=== PATIENT | male | born 1945 | race Caucasian/White ===

== ENCOUNTER 2018-06-05 09:55 | Inpatient (IN) | payer BC, OTHER ==
[2018-06-05 10:37] VITALS: BMI 24.3
[2018-06-05] MEDS ORDERED: SODIUM CHLORIDE 1,000 ML IV STA ×2 (10:45→13:08)
[2018-06-05 11:42] LABS: BASO % 0.4 % (0-2.0); EOS % 0.9 % (0-4.5); HEMATOCRIT 38.5 % (35.4-49); HEMOGLOBIN 12.8 GM/dL (11.7-16.9); MCH 26.8 pg (25.7-33.7); MCHC 33.2 g/dl (32.0-35.9); MEAN CELL VOLUME 80.7 fl (80-96); MEAN PLT VOLUME 7.7 fl (7.5-11.1); MONO % 7.4 % (3.8-10.2); NEUT % 85.3 % (42.8-82.8); PLATELET COUNT 316 K/MM3 (134-434); RBC 4.76 M/mm3 (4.00-5.60); RDW 15.5 % (11.9-15.9); WHITE BLOOD COUNT 15.7 K/mm3 (4.0-10.0)
[2018-06-05 12:06] LABS: VENOUS PH 7.4 (7.32-7.42); VENOUS PO2 27.7 mmHg (28-48)
[2018-06-05 12:16] LABS: ALBUMIN 2.9 g/dl (3.4-5.0); ALK PHOS 136 U/L (45-117); ANION GAP 13 MMOL/L (8-16); BILIRUBIN,TOTAL 0.8 mg/dL (0.2-1.0); BLOOD UREA NITROGEN 37 mg/dL (7-18); CALCIUM 9.1 mg/dL (8.5-10.1); CHLORIDE 96 mmol/L (98-107); CO2 23 mmol/L (21-32); CREATININE 0.9 mg/dL (0.7-1.3); GLUCOSE,RANDOM 253 mg/dL (74-106); SGOT/AST 36 U/L (15-37); SODIUM 132 mmol/L (136-145)
[2018-06-05 12:18] LABS: INR 1.22 (0.83-1.09); PROTHROMBIN TIME (PATIENT) 13.8 SEC (9.7-13.0)
[2018-06-05 12:21] LABS: SGPT/ALT 44 U/L (12-78)
--- NOTE | 2018-06-05 13:14 | PDOC ---
History of Present Illness - General Chief Complaint: Loss of Appetite Stated Complaint: Blood Pressure Problem/WEAKNESS Time Seen by Provider: 06/05/18 10:45 History Source: Patient, Other (daughter) Exam Limitations: No Limitations - History of Present Illness Initial Comments: 06/05/18 12:35 73 y/o male brought in by family for evaluation of decreased appetite, cough, weight loss and patient's disregard to his hygiene for the past 3 months. Patient denies discomfort, chest pain, shortness of breath, headache or dizziness but states just does not have the urge to eat. Patient states 2-3 months of coughing which is intermittently dry and wet in the morning without lower extremity edema, orthopnea, palpitations, fever or chills. Timing/Duration: constant, getting worse Severity: moderate Associated Symptoms: reports: cough, loss of appetite, weakness Past History - Travel Traveled outside of the country in the last 30 days: No - Past Medical History Allergies/Adverse Reactions: Allergies Allergy/AdvReac Type Severity Reaction Status Date / Time No Known Allergies Allergy Verified 06/05/18 10:19 COPD: No HTN: Yes - Suicide/Smoking/Psychosocial Hx Smoking History: Former smoker Have you smoked in the past 12 months: No If you are a former smoker, when did you quit?: 2012 Information on smoking cessation initiated: No Patient Lives Alone: No Lives with/in: spouse/SO Review of Systems - Review of Systems Able to Perform ROS?: Yes Constitutional: Yes: Loss of Appetite, Weakness HEENTM: No: Symptoms Reported Respiratory: Yes: Cough. No: Shortness of Breath Cardiac (ROS): No: Symptoms Reported ABD/GI: No: Symptoms Reported : No: Symptoms Reported Musculoskeletal: Yes: Muscle Weakness Integumentary: No: Symptoms Reported Neurological: Yes: Weakness. No: Headache, Dizziness Psychiatric: Yes: Change in Appetite. No: Depression, Sleep Pattern Change Endocrine: No: Symptoms Reported Hematologic/Lymphatic: No: Symptoms Reported *Physical Exam - Vital Signs Last Vital Signs Temp Pulse Resp BP Pulse Ox 98.5 F 110 H 20 142/85 93 L 06/05/18 10:15 06/05/18 10:15 06/05/18 10:15 06/05/18 10:15 06/05/18 10:15 - Physical Exam General Appearance: Yes: Disheveled, Thin. No: Apparent Distress HEENT: positive: EOMI, OLEG, TMs Normal, Pharynx Normal (decayed teeth with calcified plaque to lower teeth) Neck: positive: Supple Respiratory/Chest: positive: Lungs Clear, Normal Breath Sounds. negative: Respiratory Distress, Accessory Muscle Use Cardiovascular: positive: Regular Rhythm, Tachycardia. negative: Murmur Gastrointestinal/Abdominal: positive: Soft. negative: Tenderness Integumentary: positive: Dry, Warm, Pale Neurologic: positive: Normal Mood/Affect (good eye contact, smiling), Motor Strength 5/5 (moving all extremeties activley) Heart Score/ECG Review - History History: Slightly suspicious - Electrocardiogram EKG: Normal - Age Age: >/= 65 - Risk Factors Based on the list above the patient has:: No risk factors known - Troponin Troponin: </= normal limit - Score Heart Score - Total: 2 - ECG Intrepretation Rhythm: Regular Rhythm (Sinus tachycardia at 105. QTC 438 ms. Intervals are regular. Left axis deviation.) ED Treatment Course - LABORATORY CBC & Chemistry Diagram: 06/06/18 06:25 06/06/18 06:25 - ADDITIONAL ORDERS Additional order review: Laboratory Results 06/05/18 06/05/18 06/05/18 11:45 11:45 11:45 PT with INR 13.80 H INR 1.22 H VBG pH 7.40 POC VBG pCO2 32.0 L POC VBG pO2 27.7 L Mixed VBG HCO3 22.0 Sodium 132 L Potassium 4.0 Chloride 96 L Carbon Dioxide 23 Anion Gap 13 BUN 37 H Creatinine 0.9 Creat Clearance w eGFR > 60 Random Glucose 253 H Lactic Acid Calcium 9.1 Magnesium Total Bilirubin 0.8 AST 36 ALT 44 Alkaline Phosphatase 136 H Troponin I Total Protein 7.0 Albumin 2.9 L 06/05/18 06/05/18 06/05/18 11:28 11:25 11:25 PT with INR INR VBG pH POC VBG pCO2 POC VBG pO2 Mixed VBG HCO3 Sodium Potassium Chloride Carbon Dioxide Anion Gap BUN Creatinine Creat Clearance w eGFR Random Glucose Lactic Acid 2.4 H* Calcium Magnesium 2.3 Total Bilirubin AST ALT Alkaline Phosphatase Troponin I < 0.02 Total Protein Albumin 06/05/18 11:25 RBC 4.76 MCV 80.7 MCHC 33.2 RDW 15.5 MPV 7.7 Neutrophils % 85.3 H Lymphocytes % 6.0 L Monocytes % 7.4 Eosinophils % 0.9 Basophils % 0.4 - RADIOLOGY Radiology Studies Ordered: Category Date Time Status CHEST CT WITH CONTRAST [CT] Stat CT Scan 06/05/18 12:56 Ordered CHEST X-RAY PORTABLE* [RAD] Stat Radiology 06/05/18 10:45 Completed - Medications Given in the ED: ED Medications Discontinued Medications Generic Name Dose Route Start Last Admin Trade Name Freq PRN Reason Stop Dose Admin Sodium Chloride 1,000 mls @ 1,000 mls/hr 06/05/18 10:45 06/05/18 12:49 Normal Saline - IV 06/05/18 11:44 1,000 mls/hr ASDIR STA Administration Medical Decision Making - Medical Decision Making 06/05/18 11:47 (Inviolate primary care physician for evaluation of poor appetite, weight loss, and cough for the past 3 months. Patient upon arrival appears disheveled satting at 93% and slightly tachycardic. Patient consented to sepsis versus dehydration versus pneumonia. Septic workup was initiated 06/05/18 13:47 Laboratory Tests 06/05/18 06/05/18 06/05/18 11:25 11:25 11:25 WBC 15.7 H Hgb 12.8 Hct 38.5 Absolute Neuts (auto) 13.4 H Neutrophils % 85.3 H PT with INR INR VBG pH POC VBG pCO2 POC VBG pO2 Mixed VBG HCO3 Sodium Potassium Chloride Carbon Dioxide Anion Gap BUN Creatinine Creat Clearance w eGFR Random Glucose Calcium Magnesium 2.3 Total Bilirubin AST ALT Alkaline Phosphatase Troponin I < 0.02 Total Protein Albumin 06/05/18 06/05/18 06/05/18 11:45 11:45 11:45 WBC Hgb Hct Absolute Neuts (auto) Neutrophils % PT with INR 13.80 H INR 1.22 H VBG pH 7.40 POC VBG pCO2 32.0 L POC VBG pO2 27.7 L Mixed VBG HCO3 22.0 Sodium 132 L Potassium 4.0 Chloride 96 L Carbon Dioxide 23 Anion Gap 13 BUN 37 H Creatinine 0.9 Creat Clearance w eGFR > 60 Random Glucose 253 H Calcium 9.1 Magnesium Total Bilirubin 0.8 AST 36 ALT 44 Alkaline Phosphatase 136 H Troponin I Total Protein 7.0 Albumin 2.9 L 06/05/18 13:49 Chest x-ray shows a masslike opacity noted in the right mid lung zone, right hilar region with increasing lung markings in the right upper lobe. No evidence of pneumothorax or large pleural effusion. The cardiac silhouette is not enlarged. Normal aeration of the left lung. Case discussed with patient's primary care physician agrees and will admit patient to [facility]. Patient would' ve for CT of the chest for further evaluation along with second liter of normal saline and Zosyn secondary to elevated white count and lactic acid. Awaiting urine. 06/05/18 15:[address] shows groundglass opacity within the lateral segment of the right middle lobe measuring 1.9 cm best seen on image 70. A mass identified projecting within the right upper lobe measuring 5.9 x 7.1 x 6.9 cm. Low- density within the middle of this lesion suggest necrosis. 4.1 cm is noted within the right lobe of the liver likely representing metastasis disease to additional lesions are noted posteriorly within the right lobe measuring 1.5- 1.9 cm. No aggressive bone lesions seen. *DC/Admit/Observation/Transfer Diagnosis at time of Disposition: Sepsis, Opacity of lung on imaging study, Hyponatremia, Poor appetite - Discharge Dispostion Decision to Admit order: Yes - Referrals - Patient Instructions - Post Discharge Activity
[2018-06-05] MEDS ORDERED: PIPERACILLIN/TAZOB 3.375 GM 3.375 GM in DEXTROSE 5%-WATER - 50 ML IVPB SCH (13:45)
--- NOTE | 2018-06-05 15:08 | HP ---
Admitting History and Physical - Admission Chief Complaint: Acute exacerbation of generalized muscle weakness, anorexia and non-productive cough. 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 Cardiovascular: Yes: HTN Pulmonary: Yes: Other (non-productive cough, lung mass of right upper lobe) Gastrointestinal: Yes: Other (status post surgery for duodenal ulcer) Hepatobiliary: Yes: Other (distant metastases) Infectious Disease: Yes: Other (dental caries) Psych: Yes: Depression Musculoskeletal: Yes: Other (generalized muscle weakness) Dermatology: Yes: Other (Decubitus ulcer of right buttock) - Past Surgical History Past Surgical History: Yes: Hernia Repair (right inguinal hernia repair) - Smoking History Smoking history: Former smoker Have you smoked in the past 12 months: No If you are a former smoker, when did you quit?: 2013 - Alcohol/Substance Use Hx Alcohol Use: No (used to drink beer) History of Substance Use: reports: None - Social History Usual Living Arrangement: Yes: With Spouse 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 Loss, Weakness ( generalized muscle weakness) Eyes: reports: No Symptoms HENT: reports: Other (dental caries) Neck: reports: No Symptoms Cardiovascular: reports: No Symptoms Respiratory: reports: Cough Gastrointestinal: reports: Other (poor appetite) Genitourinary: reports: No Symptoms Breasts: reports: No Symptoms Reported Musculoskeletal: reports: Muscle Weakness Integumentary: reports: Other (stage I decubitus ulcer of left ischial tuberosity) Endocrine: reports: No Symptoms Hematology/Lymphatic: reports: No Symptoms Psychiatric: reports: Anxiety, Depression Physical Examination Vital Signs: Vital Signs Temperature 98.7 F 06/05/18 13:07 Pulse Rate 99 H 06/05/18 13:07 Respiratory Rate 16 06/05/18 13:07 Blood Pressure 131/74 06/05/18 13:07 O2 Sat by Pulse Oximetry (%) 93 L 06/05/18 13:07 Constitutional: Yes: Well Nourished, Mild Distress Eyes: Yes: Conjunctiva Clear, EOM Intact HENT: Yes: Atraumatic, Normocephalic Neck: Yes: Supple, Trachea Midline Cardiovascular: Yes: Regular Rate and Rhythm Respiratory: Yes: Regular, CTA Bilaterally, Cough Gastrointestinal: Yes: Normal Bowel Sounds, Soft ...Rectal Exam: Yes: Deferred Renal/: Yes: WNL Breast(s): Yes: WNL Musculoskeletal: Yes: Muscle Weakness Edema: No Peripheral Pulses WNL: Yes Integumentary: Yes: Pressure Ulcer (stage I of the left hip) Neurological: Yes: Alert, Oriented ...Motor Strength: LUE (muscle weakness), LLE (muscle weakness), RUE (muscle weakness), RLE (muscle weakness) Psychiatric: Yes: Alert, Oriented Labs: CBC, BMP 06/05/18 11:25 06/05/18 11:45 Imaging - Results Chest X-ray: Report Reviewed Cat Scan: Report Reviewed EKG: Report Reviewed Problem List - Problems (1) Hyponatremia Assessment/Plan: IV fluids Code(s): E87.1 - HYPO-OSMOLALITY AND HYPONATREMIA (2) Opacity of lung on imaging study Assessment/Plan: Lung mass in the right middle lobe with distant metastases. Conservative treatment. Code(s): R91.8 - OTHER NONSPECIFIC ABNORMAL FINDING OF LUNG FIELD (3) Poor appetite Assessment/Plan: Adequate hydration and nutrition. Code(s): R63.0 - ANOREXIA (4) Sepsis Assessment/Plan: IV antibiotics Code(s): A41.9 - SEPSIS, UNSPECIFIED ORGANISM Assessment/Plan Reason for admission and continued hospital stay: Acute sepsis, acute hyponatremia, acute leukocytosis, right upper lobe lung mass with distant metastases, depression, IV fluids, IV antibiotics, Consultations to ID and Psychiatry, discussed clinical condition of the patient with and daughter Vera.
[2018-06-05] MEDS: SODIUM CHLORIDE 1,000 ML IV SCH (17:09)
--- NOTE | 2018-06-05 17:34 | EKG ---
Test Reason : Blood Pressure : / mmHG Vent. Rate : 105 BPM Atrial Rate : 105 BPM P-R Int : 136 ms QRS Dur : 070 ms QT Int : 332 ms P-R-T Axes : 065 -33 063 degrees QTc Int : 438 ms SINUS TACHYCARDIA POSSIBLE LEFT ATRIAL ENLARGEMENT LEFT AXIS DEVIATION LOW VOLTAGE QRS ABNORMAL ECG NO PREVIOUS ECGS AVAILABLE Confirmed by KAYY PALMER MD ([id number]) on 06/05/2018 5:34:08 PM Referred By: Confirmed By:KAYY PALMER MD
--- NOTE | 2018-06-05 18:00 | PN ---
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
[2018-06-05] MEDS ORDERED: CEFTRIAXONE 1 GM in DEXTROSE 5%-WATER - 50 ML IVPB SCH (18:15)
--- NOTE | 2018-06-05 18:59 | CONS ---
DATE OF CONSULTATION: DATE OF DICTATION: 06/05/2018 INFECTIOUS DISEASE CONSULTATION REQUESTING PHYSICIAN: Mau Mclain M.D. HISTORY OF PRESENT ILLNESS: This is a 73-year-old man admitted from home, where he has been doing poorly for the last several months. He has not been eating. He has had a chronic cough. He has had weight loss. He has become so weak that over the last 2 weeks he is unable to walk and he stays in bed. He has been wearing Depends at home, as he has not even been able to get up and go to the bathroom. He has no chest pain. He has no abdominal pain. He has no fevers. He has no chills. He does complain of dysuria. This has been going on for a long time and the family is worried he is depressed. PAST MEDICAL HISTORY: Unremarkable. He does not go to the doctor. He does not take any medicine. He has no known drug allergies. 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 He lives with his . He is a former cigarette smoker and alcohol drinker. He stopped 5 years ago when he retired. he has been depressed, the daughter reports since he retired. FAMILY HISTORY: Noncontributory. PAST MEDICAL HISTORY: Notable for he has had surgery in the past for bleeding ulcer, and he has had an inguinal hernia repair in the past. REVIEW OF SYSTEMS: Notable for weight loss, loss of appetite, and he has an intermittent cough. PHYSICAL EXAMINATION: VITAL SIGNS: He is afebrile. Temperature is 98, pulse 98, blood pressure 134/ 71, respiratory rate 18. HEENT: Normocephalic. Eyes are anicteric. He has poor dentition. NECK: Supple. LUNGS: Diminished breath sounds at the right base. He has right axillary adenopathy. HEART: Regular rate and rhythm. ABDOMEN: Soft, nontender. EXTREMITIES: Without edema. He has a right ischial stage 1 ulcer. His arms are asymmetrically swollen, left arm is swollen compared to his right, which appears unremarkable. LABORATORY: Notable for white count 15.7, hemoglobin 12.8, platelets of 316. INR is 1.2. His BUN and creatinine are 37 and 0.9. Lactic acid is 2.4. Blood cultures have been sent. He was given 2 L of fluid in the emergency room and I am asked to see him for possible infection. He had a chest x-ray done in the emergency room that was notable for a right lung mass. He had a CAT scan of his chest done as well in the emergency room that was notable for a mass projecting within the right upper lobe that is 5.9 x 7.1 x 6.9 cm. As well he has got large right hilar adenopathy. There is some extrinsic compression of right pulmonary artery as well as there is intrinsic compression of the SVC. There are additional lung nodules in the left and right middle lobe, and there are 3 masses in the liver. He also has a large moderate right effusion. IMPRESSION: In summary, this is a 73-year-old man that I was asked to see for infection. Not convinced he has an infection except perhaps a urinary tract infection. He does have evidence of a lung tumor with concerns of impending SVC syndrome. Case was discussed with daughter and with the primary medical doctor. The family is aware he has a tumor. I have advised them that we ask oncology to further evaluate, which they are agreeable with. I spoke with Dr. Westbrook regarding his management . They will evaluate the patient. Would suggest that after cultures are sent we start Rocephin for possible urinary tract infection. Further recommendations to follow. TOSIN HURTADO M.D. [id number] MTDD
--- NOTE | 2018-06-05 19:34 | CONSULT ---
Consult Consult Specialty:: Hematology-oncology Reason for Consultation:: Lung mass and SVC syndrome - History of Present Illness Chief Complaint: genralized weakness History of Present Illness: &! y/o male was brought in by family for generalized weakness. Patient states that he is feeling weaker from 3- 4 months but from last 3 weak his weakness has increased and and is unable to walk. Before he was able to go to bathroom but now as per family he is peeing in his bed. He also reports that he has noticed decrease in his appetite and has lost weight. Be also reports difficulty is swallowing and has started drinking water to swallow food. He also satates that he has dry cough from many months but denies sob. Also reports blurry vision from few months. He also states that he had smoked for about 40-45 years and stopped 5-6 years ago. Also reports some dysuria. Family reports that he was retried 5-6 years ago and since he just sits in home and stays in home all the time. Family also states that he doesn't take shower for weeks. Patient denies headache, double vision, numbness or weakness in part of body, swelling of face and arms. Denies chest pain, palpitations, shortness of breath. Denies nausea, vomiting, diarrhoea, abdominal distension, pain in abdomen Denies change in frequency, dribbling in end of micturation, change in stream, states he can feel that he needs to urinate but cant reach upto bathroom. Denies back pain. Denies feeling cold or warm. 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 Cardio/Vascular: Yes: HTN Pulmonary: Yes: Other (non-productive cough, lung mass of right upper lobe) Gastrointestinal: Yes: Other (status post surgery for duodenal ulcer) Hepatobiliary: Yes: Other (distant metastases) Infectious Disease: Yes: Other (dental caries) Psych: Yes: Depression Musculoskeletal: Yes: Other (generalized muscle weakness) Dermatology: Yes: Other (Decubitus ulcer of right buttock) - Past Surgical History Past Surgical History: Yes: Hernia Repair (right inguinal hernia repair) Additional Surgical History: Laprotomy - Alcohol/Substance Use Hx Alcohol Use: No (used to drink beer) History of Substance Use: reports: None - Smoking History Smoking history: Former smoker Have you smoked in the past 12 months: No If you are a former smoker, when did you quit?: 2013 - Social History Usual Living Arrangement: With Spouse Occupation: [employer] of : Other ([employer]) History of Recent Travel: No Home Medications - Allergies Allergies/Adverse Reactions: Allergies Allergy/AdvReac Type Severity Reaction Status Date / Time No Known Allergies Allergy Verified 06/05/18 10:19 Family Disease History - Family Disease History Family Disease History: Diabetes: Grandparent (details not available ), Father ( details not available ), Mother, Brother (spine cancer ), Daughter (x3 healthy ) Review of Systems Findings/Remarks: Discussed above - Review of Systems Constitutional: reports: Lethargy, Loss of Appetite, Unintentional Wgt. Loss Eyes: reports: Blurred Vision HENT: reports: Difficult Swallowing Neck: reports: No Symptoms Respiratory: reports: Cough Gastrointestinal: reports: Constipation Genitourinary: reports: Dysuria Musculoskeletal: reports: Muscle Weakness Neurological: reports: Weakness Endocrine: reports: Unexplained Weight Loss Hematology/Lymphatic: reports: Excessive Bleeding Psychiatric: reports: Depression Physical Exam Vital Signs: Vital Signs Temperature 98 F 06/05/18 15:47 Pulse Rate 98 H 06/05/18 15:47 Respiratory Rate 18 06/05/18 15:47 Blood Pressure 134/71 06/05/18 15:47 O2 Sat by Pulse Oximetry (%) 93 L 06/05/18 13:07 Constitutional: Yes: Cachectic Eyes: Yes: Conjunctiva Clear HENT: Yes: Other (poor oral hygine) Neck: Yes: Supple. No: Lymphadenopathy, Thyromegaly Cardiovascular: Yes: Regular Rate and Rhythm, S1, S2. No: Murmur, Rub Respiratory: Yes: Other (b/l air entry present, expiratory wheez on right side, crackels present on right side. no axillary lymphnode.) Gastrointestinal: Yes: Soft, Other (mid line scar, no ingunal lymphnodes, no scrotal swelling). No: Palpable Mass, Splenomegaly, Tenderness, Tenderness, Epigastrium, Tenderness, Rebound Renal/: No: CVA Tenderness - Right Musculoskeletal: No: Back Pain Extremities: Yes: Cold, Other (muscle loss) Edema: No Neurological: Yes: Alert, Oriented, Cran Nerves II-XII Intact Psychiatric: Yes: Alert, Oriented Labs: CBC, BMP 06/05/18 11:25 06/05/18 11:45 Imaging - Results Cat Scan: Report Reviewed Problem List - Problems (1) Lung mass Code(s): R91.8 - OTHER NONSPECIFIC ABNORMAL FINDING OF LUNG FIELD (2) Superior vena cava compression syndrome Code(s): I87.1 - COMPRESSION OF VEIN (3) Liver metastasis Code(s): C78.7 - SECONDARY MALIG NEOPLASM OF LIVER AND INTRAHEPATIC BILE DUCT (4) Hilar mass Code(s): R91.8 - OTHER NONSPECIFIC ABNORMAL FINDING OF LUNG FIELD Assessment/Plan 73 y/o male with history of smoking for about 40 -45 years came to hospital for generalized weakness, loss of weight and loss of appetite. Patient under went CT chest which shows mass in right upper lobe of lung, hilar mass compressing SVC, right side effusion and multiple lesions in liver. concern for early SVC syndrome. with smoking history lungs CA would be likely his diagnosis. Statistically oatcell carcinoma is commonest lung ca causing SVC. Generalized weakness raises concern for possible Eaton Lambert syndrome. Tissue diagnosis is required for therapy. Can consider thoracentesis for cytology and or IR directed lung biopsy. Once diagnosis is established treatment can be instituted. For suspecting SVC syndrome we will start him on dexamethasone 4mg bid, keep his head elevated by 45 degree and will give him low dose of diuretic. Once diagnosis is made patient requires a bone scan, mri brain with contrast. Pulmonology and neurology consult. Plan discussed with family and patient. Family was present at bed side ( and 2 daughter ) Visit type - Emergency Visit Emergency Visit: Yes ED Registration Date: 06/05/18 Care time: The patient presented to the Emergency Department on the above date and was hospitalized for further evaluation of their emergent condition. - New Patient This patient is new to me today: Yes Date on this admission: 06/12/18 - Critical Care Critical Care patient: No
[2018-06-05] MEDS ORDERED: DEXAMETHASONE 4 MG TABLET (FP) PO ONE (20:00)
[2018-06-05] MEDS ORDERED: ALBUTEROL SO4 2.5/IPRATROPIUM 0.5 INH SOL 3 ML VIAL.NEB. NEB PRN (20:05)
--- NOTE | 2018-06-05 20:27 | PN ---
Teaching Attending Note Name of Resident: Lucas Ahmadi ATTENDING PHYSICIAN STATEMENT I saw and evaluated the patient. I reviewed the resident's note and discussed the case with the resident. I agree with the resident's findings and plan as documented. SUBJECTIVE: Patient seen and examined 73 year old smoker with right pleural effusion, right lung mass, multiple pulmonary nodules, mediastinal lymphadenopathy and 3 masses in liver . Strongly suspicious for lung ca >> lymphoma. Adenopathy causing early signs of SVC. Hyponatremia--?? SIADH Generalized muscle weakness --- ? Eaton -Lambert syndrome. Plan would be to obtain tissue for diagnosis, Thoracentesis for cytology and /or I.R. directed lung biopsy. Treatment can be instituted after diagnosis. Suggest I.R consult, neurology consult , and pulmonary consult. A OBJECTIVE: ASSESSMENT AND PLAN:
[2018-06-05] MEDS: ENOXAPARIN NA (PORCINE) 80 MG/0.8 ML DISP.SYRIN SQ SCH (21:33)
[2018-06-05 23:48] LABS: URINE APPEARANCE SLCLOUDY; URINE BILIRUBIN NEGATIVE (<2.0 mg/dL); URINE COLOR AMBER; URINE GLUCOSE (UA) NEGATIVE (NEGATIVE); URINE KETONE NEGATIVE (NEGATIVE); URINE NITRITE NEGATIVE (NEGATIVE); URINE PROTEIN NEGATIVE (NEGATIVE); URINE UROBILINOGEN 4.0 E.U/dl mg/dL (0.2-1.0)
[2018-06-06 00:03] LABS: URINE LEUK ESTERASE 1+ (NEGATIVE)
[2018-06-06 00:04] LABS: URINE BACTERIA MODERATE /hpf (NONE SEEN); URINE HYALINE CAST 4 /lpf; URINE MUCUS RARE
[2018-06-06] MEDS ORDERED: DEXTROSE 5%-WATER - 50 ML IVPB ONE ×3 (01:00→18:17)
[2018-06-06] MEDS ORDERED: cefTRIAXone SODIUM 1 GM VIAL ONE ×3 (01:00→18:17)
[2018-06-06] MEDS: CEFTRIAXONE 1 GM in DEXTROSE 5%-WATER - 50 ML IVPB SCH ×2 (01:20→17:32)
[2018-06-06] MEDS: SODIUM CHLORIDE 1,000 ML IV SCH ×2 (05:46→21:24)
[2018-06-06] MEDS: DEXAMETHASONE 4 MG TABLET (FP) PO SCH ×3 (05:46→21:24)
[2018-06-06 07:25] LABS: BASO % 0.2 % (0-2.0); EOS % 0.2 % (0-4.5); HEMATOCRIT 34.2 % (35.4-49); HEMOGLOBIN 11.4 GM/dL (11.7-16.9); LYMPH % 6.1 % (8-40); MCH 26.6 pg (25.7-33.7); MCHC 33.4 g/dl (32.0-35.9); MEAN CELL VOLUME 79.6 fl (80-96); MEAN PLT VOLUME 7.6 fl (7.5-11.1); MONO % 3.5 % (3.8-10.2); PLATELET COUNT 275 K/MM3 (134-434); RBC 4.29 M/mm3 (4.00-5.60); RDW 15.5 % (11.9-15.9); WHITE BLOOD COUNT 11.4 K/mm3 (4.0-10.0)
--- NOTE | 2018-06-06 07:33 | PN ---
Progress Note, Physician Chief Complaint: Generalized muscle weakness, poor appetite, non-productive cough. 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 - Current Medication List Current Medications: Active Medications Albuterol/Ipratropium (Duoneb -) 1 amp NEB Q6H PRN PRN Reason: SHORTNESS OF BREATH Dexamethasone (Decadron -) 4 mg PO BID ON LICENSE OF [facility] Last Admin: 06/06/18 05:46 Dose: 4 mg Enoxaparin Sodium (Lovenox -) 70 mg SQ BID ON LICENSE OF [facility] Last Admin: 06/05/18 21:33 Dose: 70 mg Hydrochlorothiazide (Hctz -) 12.5 mg PO DAILY ON LICENSE OF [facility] Sodium Chloride (Normal Saline -) 1,000 mls @ 75 mls/hr IV ASDIR ON LICENSE OF [facility] Last Admin: 06/06/18 05:46 Dose: 75 mls/hr Ceftriaxone Sodium 1 gm/ (Dextrose) 50 mls @ 100 mls/hr IVPB DAILY ON LICENSE OF [facility]; Protocol Last Admin: 06/06/18 01:20 Dose: 100 mls/hr - Objective Vital Signs: Vital Signs Temperature 97.5 F L 06/06/18 05:43 Pulse Rate 80 06/06/18 05:43 Respiratory Rate 18 06/06/18 05:43 Blood Pressure 122/68 06/06/18 05:43 O2 Sat by Pulse Oximetry (%) 95 06/05/18 21:00 Constitutional: Yes: Well Nourished, Calm Eyes: Yes: Conjunctiva Clear, EOM Intact HENT: Yes: Atraumatic, Normocephalic Neck: Yes: Supple, Trachea Midline Cardiovascular: Yes: Regular Rate and Rhythm Respiratory: Yes: Regular, CTA Bilaterally, Cough, Rhonchi Gastrointestinal: Yes: Normal Bowel Sounds, Soft ...Rectal Exam: Yes: Deferred Genitourinary: Yes: Bladder Distention (urinary retention, r/o BPH) Breast(s): Yes: WNL Musculoskeletal: Yes: Muscle Weakness (generalized) Extremities: Yes: Cool Edema: No Peripheral Pulses WNL: Yes Integumentary: Yes: Pressure Ulcer (stage I of the left hip) Neurological: Yes: Alert, Oriented ...Motor Strength: LUE (muscle weakness), LLE (muscle weakness), RUE (muscle weakness), RLE (muscle weakness) Psychiatric: Yes: Alert, Oriented Labs: INR, PTT INR 1.22 (0.83-1.09) H 06/05/18 11:45 - ....Imaging Ultrasound: Report Reviewed (DVT) Problem List - Problems (1) Hyponatremia Assessment/Plan: IV fluids Code(s): E87.1 - HYPO-OSMOLALITY AND HYPONATREMIA (2) Opacity of lung on imaging study Assessment/Plan: Oncology consultation Code(s): R91.8 - OTHER NONSPECIFIC ABNORMAL FINDING OF LUNG FIELD (3) Poor appetite Assessment/Plan: Adequate hydration and nutrition. Code(s): R63.0 - ANOREXIA (4) Sepsis Assessment/Plan: IV Ceftriaxone Code(s): A41.9 - SEPSIS, UNSPECIFIED ORGANISM Assessment/Plan Reason for admission and hospital stay: right lung mass with mediastinal lymphandenopathy, pleural effusion, pulomnary nodules and liver masses, urinary tract infection, DVT, poor dentition, ?urinary retention, acute hyponatremia, transrectal ultrasound of the prostate, Consultation to Pulmonary and Neurology , IV Ceftriaxone, Decadron, Lovenox. Discussed clinical condition of the patient with daughter Vera.
[2018-06-06 07:56] LABS: ALBUMIN 2.3 g/dl (3.4-5.0); ANION GAP 11 MMOL/L (8-16); BLOOD UREA NITROGEN 25 mg/dL (7-18); CALCIUM 7.9 mg/dL (8.5-10.1); CHLORIDE 101 mmol/L (98-107); CO2 22 mmol/L (21-32); CREATININE 0.7 mg/dL (0.7-1.3); GLUCOSE,RANDOM 209 mg/dL (74-106); POTASSIUM 4.2 mmol/L (3.5-5.1); SGOT/AST 15 U/L (15-37); SGPT/ALT 30 U/L (12-78); SODIUM 134 mmol/L (136-145)
[2018-06-06 07:58] LABS: ALK PHOS 108 U/L (45-117); BILIRUBIN,TOTAL 0.4 mg/dL (0.2-1.0); TOT PROT 5.8 g/dl (6.4-8.2)
--- NOTE | 2018-06-06 09:07 | CONSULT ---
Consult - text type - Consultation Consultation Note: Neurology - History of Present Illness 73 y/o male was brought in by family for deconditioning, failure to thrive, generalized weakness. Reportedly with progressive decline from 3- 4 months but over the past month has not been ambulating at home. Son and daughter bedside provided collateral history. Has been reportedly not walking to bathroom, limited PO intake, difficulty with maintain hygiene and overall deterioration. He was awake, alert, and cooperative with me. Of note, has a extensive history of smoking and is being managed for mass in right upper lobe of lung, hilar mass compressing SVC, right side effusion ? SVC syndrome. Neurologically, no focal deficits and is improving in energy and activity. Being fed breakfast at bedside. 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 Cardio/Vascular: Yes: HTN Pulmonary: Yes: Other (non-productive cough, lung mass of right upper lobe) Gastrointestinal: Yes: Other (status post surgery for duodenal ulcer) Hepatobiliary: Yes: Other (distant metastases) Infectious Disease: Yes: Other (dental caries) Psych: Yes: Depression Musculoskeletal: Yes: Other (generalized muscle weakness) Dermatology: Yes: Other (Decubitus ulcer of right buttock) - Past Surgical History Past Surgical History: Yes: Hernia Repair (right inguinal hernia repair) Additional Surgical History: Laprotomy - Alcohol/Substance Use Hx Alcohol Use: No (used to drink beer) History of Substance Use: reports: None - Smoking History Smoking history: Former smoker Have you smoked in the past 12 months: No If you are a former smoker, when did you quit?: 2012 - Social History Usual Living Arrangement: With Spouse Occupation: [employer] of : Other ([place]) History of Recent Travel: No Home Medications - Allergies Allergies/Adverse Reactions: Allergies Allergy/AdvReac Type Severity Reaction Status Date / Time No Known Allergies Allergy Verified 06/05/18 10:19 Family Disease History - Family Disease History Family Disease History: Diabetes: Grandparent (details not available ), Father ( details not available ), Mother, Brother (spine cancer ), Daughter (x3 healthy ) Review of Systems - Review of Systems Constitutional: reports: Lethargy, Loss of Appetite, Unintentional Wgt. Loss Eyes: reports: Blurred Vision HENT: reports: Difficult Swallowing Neck: reports: No Symptoms Respiratory: reports: Cough Gastrointestinal: reports: Constipation Genitourinary: reports: Dysuria Musculoskeletal: reports: Muscle Weakness Neurological: reports: Weakness Endocrine: reports: Unexplained Weight Loss Hematology/Lymphatic: reports: Excessive Bleeding Psychiatric: reports: Depression Physical Exam Vital Signs Period Temp Pulse Resp BP Sys/Garcia Pulse Ox Last 24 Hr 97.5 F-98.7 F 80-110 16-20 122-142/68-85 93-95 Constitutional: Yes: Cachectic Eyes: Yes: Conjunctiva Clear HENT: Yes: Other (poor oral hygine) Neck: Yes: Supple. No: Lymphadenopathy, Thyromegaly Cardiovascular: Yes: Regular Rate and Rhythm, S1, S2. No: Murmur, Rub Respiratory: Yes: Other (b/l air entry present, expiratory wheez on right side, crackels present on right side. no axillary lymphnode.) Gastrointestinal: Yes: Soft, Other (mid line scar, no ingunal lymphnodes, no scrotal swelling). No: Palpable Mass, Splenomegaly, Tenderness, Tenderness, Epigastrium, Tenderness, Rebound Renal/: No: CVA Tenderness - Right Musculoskeletal: No: Back Pain Extremities: Yes: Cold, Other (muscle loss) Edema: No Neurological: Yes: Alert, Oriented, Cran Nerves II-XII Intact, moving all ext equally, sensory intact, gait deferred Psychiatric: Yes: Alert, Oriented CBCD WBC 11.4 K/mm3 (4.0-10.0) H 06/06/18 06:25 RBC 4.29 M/mm3 (4.00-5.60) 06/06/18 06:25 Hgb 11.4 GM/dL (11.7-16.9) L 06/06/18 06:25 Hct 34.2 % (35.4-49) L 06/06/18 06:25 MCV 79.6 fl (80-96) L 06/06/18 06:25 MCHC 33.4 g/dl (32.0-35.9) 06/06/18 06:25 RDW 15.5 % (11.9-15.9) 06/06/18 06:25 Plt Count 275 K/MM3 (134-434) 06/06/18 06:25 MPV 7.6 fl (7.5-11.1) 06/06/18 06:25 CMP Sodium 134 mmol/L (136-145) L 06/06/18 06:25 Potassium 4.2 mmol/L (3.5-5.1) 06/06/18 06:25 Chloride 101 mmol/L (98-107) 06/06/18 06:25 Carbon Dioxide 22 mmol/L (21-32) 06/06/18 06:25 Anion Gap 11 MMOL/L (8-16) 06/06/18 06:25 BUN 25 mg/dL (7-18) H 06/06/18 06:25 Creatinine 0.7 mg/dL (0.7-1.3) 06/06/18 06:25 Creat Clearance w eGFR > 60 (>60) 06/06/18 06:25 Random Glucose 209 mg/dL (74-106) H 06/06/18 06:25 Calcium 7.9 mg/dL (8.5-10.1) L 06/06/18 06:25 Total Bilirubin 0.4 mg/dL (0.2-1.0) 06/06/18 06:25 AST 15 U/L (15-37) D 06/06/18 06:25 ALT 30 U/L (12-78) D 06/06/18 06:25 Alkaline Phosphatase 108 U/L (45-117) D 06/06/18 06:25 Total Protein 5.8 g/dl (6.4-8.2) L 06/06/18 06:25 Albumin 2.3 g/dl (3.4-5.0) L 06/06/18 06:25 CARDIAC ENZYMES Troponin I < 0.02 ng/ml (0.00-0.05) 06/05/18 11:25 Imaging - Results Cat Scan: Report Reviewed Assessment/Plan 73 y/o male was brought in by family for deconditioning, failure to thrive, generalized weakness. Reportedly with progressive decline from 3- 4 months but over the past month has not been ambulating at home. Son and daughter bedside provided collateral history. Has been reportedly not walking to bathroom, limited PO intake, difficulty with maintain hygiene and overall deterioration. He was awake, alert, and cooperative with me. Of note, has a extensive history of smoking and is being managed for mass in right upper lobe of lung, hilar mass compressing SVC, right side effusion ? SVC syndrome. Neurologically, no focal deficits and is improving in energy and activity. Being fed breakfast at bedside. 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 If desired, Ab can be sent out. Recommend continued workup/plan with thoracentesis or IR guided biopsy. Started on decadron, no objection to this. Imaging as desired by Onc. Physical therapy as tolerated. May benefit from psych eval for possible depression.
[2018-06-06] MEDS: HYDROCHLOROTHIAZIDE 12.5 MG CAPSULE (FP) PO SCH (10:52)
[2018-06-06] MEDS: ENOXAPARIN NA (PORCINE) 80 MG/0.8 ML DISP.SYRIN SQ SCH ×2 (10:53→21:24)
--- NOTE | 2018-06-06 11:05 | CON.PULM ---
Consult Consult Specialty:: PULM/CCM Referred by:: COURT Reason for Consultation:: Abnormal CT - History of Present Illness Chief Complaint: weakness History of Present Illness: 73 M, with listed past medical history. Admitted via the ER due to generalized weakness that has progressed over the past 3- 4 months. He has worsening to the point that he is unable to ambulate. History of decreased appetite and significant weight loss. Reports difficulty is swallowing. No travel history or sick contacts. No fever or chills. No hemoptysis. He has at least a 45 year pack history of smoking, having quit about [address]: Large right sided mass with likely metastatic disease to the mediastinum/ liver/satellite mets. 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 Cardio/Vascular: Yes: HTN Pulmonary: Yes: Other (non-productive cough, lung mass of right upper lobe) Gastrointestinal: Yes: Other (status post surgery for duodenal ulcer) Hepatobiliary: Yes: Other (distant metastases) Infectious Disease: Yes: Other (dental caries) Psych: Yes: Depression Musculoskeletal: Yes: Other (generalized muscle weakness) Dermatology: Yes: Other (Decubitus ulcer of right buttock) - Past Surgical History Past Surgical History: Yes: Hernia Repair (right inguinal hernia repair) Additional Surgical History: Laprotomy - Alcohol/Substance Use Hx Alcohol Use: No (used to drink beer) History of Substance Use: reports: None - Smoking History Smoking history: Former smoker Have you smoked in the past 12 months: No If you are a former smoker, when did you quit?: 2012 - Social History Usual Living Arrangement: With Spouse 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 Loss. denies: Chills, Fever, Night Sweats Eyes: reports: No Symptoms HENT: reports: No Symptoms Neck: reports: No Symptoms Cardiovascular: denies: Chest Pain, Edema, Palpitations, Shortness of Breath Respiratory: reports: Cough, SOB, SOB on Exertion. denies: Hemoptysis, Orthopnea, Snoring, Wheezing Gastrointestinal: reports: Dysphagia, Nausea. denies: Melena, Rectal Bleeding, Vomiting, Vomiting Blood Genitourinary: reports: No Symptoms Breasts: reports: No Symptoms Reported Musculoskeletal: reports: Back Pain Integumentary: reports: No Symptoms Neurological: reports: Confusion, Dizziness, Incoordination, Weakness Endocrine: reports: No Symptoms Hematology/Lymphatic: reports: No Symptoms Psychiatric: reports: Altered Sleep Pattern Physical Exam Vital Sings: Vital Signs Temperature 98.0 F 06/06/18 10:45 Pulse Rate 93 H 06/06/18 10:45 Respiratory Rate 18 06/06/18 10:45 Blood Pressure 119/63 06/06/18 10:45 O2 Sat by Pulse Oximetry (%) 95 06/05/18 21:00 Constitutional: Yes: Thin Eyes: Yes: Conjunctiva Clear, EOM Intact HENT: Yes: Atraumatic, Normocephalic, Tonsillar Exudate Neck: Yes: Supple Cardiovascular: Yes: Regular Rate and Rhythm Respiratory: Yes: Cough, Diminished. No: Accessory Muscle Use, Rales, Rhonchi, SOB, SOB on Exertion, Stridor, Tachypnea, Wheezes ...Inspection: Yes: WNL ...Clubbing: No Gastrointestinal: Yes: Normal Bowel Sounds, Soft Renal/: Yes: WNL Musculoskeletal: Yes: WNL Extremities: Yes: WNL Edema: No Peripheral Pulses WNL: Yes Integumentary: Yes: WNL Neurological: Yes: Alert, Oriented ...Motor Strength: WNL Psychiatric: Yes: Alert, Oriented Labs: CBC, BMP 06/06/18 06:25 06/06/18 06:25 Imaging - Results Chest X-ray: Report Reviewed, Image Reviewed Cat Scan: Report Reviewed, Image Reviewed Problem List - Problems (1) COPD (chronic obstructive pulmonary disease) Code(s): J44.9 - CHRONIC OBSTRUCTIVE PULMONARY DISEASE, UNSPECIFIED (2) Pleural effusion Code(s): J90 - PLEURAL EFFUSION, NOT ELSEWHERE CLASSIFIED (3) Hilar mass Code(s): R91.8 - OTHER NONSPECIFIC ABNORMAL FINDING OF LUNG FIELD (4) Hyponatremia Code(s): E87.1 - HYPO-OSMOLALITY AND HYPONATREMIA (5) Liver metastasis Code(s): C78.7 - SECONDARY MALIG NEOPLASM OF LIVER AND INTRAHEPATIC BILE DUCT (6) Lung mass Code(s): R91.8 - OTHER NONSPECIFIC ABNORMAL FINDING OF LUNG FIELD (7) Poor appetite Code(s): R63.0 - ANOREXIA (8) Superior vena cava compression syndrome Code(s): I87.1 - COMPRESSION OF VEIN Assessment/Plan Will D/W IR best approach for tissue diagnosis: ie, Right lung biopsy +/- sampling pleural effusion Noted therapeutic LMWH: will need to be held for biopsy O2 as needed Low clinical suspicion of infection: Low threshold to D/C ABX No smoking BD TX PRN Will follow closely Thank you. Dr Huntley
--- NOTE | 2018-06-06 13:33 | CON.PSY ---
Psychiatry Consult Chief Complaint: 73 year old male seen for Psych evaluation for depression. Spoke with patients daughter to obtain more info. Symptoms: reports: Depressed Mood, Appetite Disturbance, Sleep Disturbance - Previous Psychiatric Treatment Outpatient: None Inpatient: None - Previous Substance Abuse Treatment Outpatient: None Inpatient: None - Current Medications Current Medications: Active Medications Albuterol/Ipratropium (Duoneb -) 1 amp NEB Q6H PRN PRN Reason: SHORTNESS OF BREATH Dexamethasone (Decadron -) 4 mg PO BID [facility] Last Admin: 06/06/18 10:52 Dose: 4 mg Enoxaparin Sodium (Lovenox -) 70 mg SQ BID [facility] Last Admin: 06/06/18 10:53 Dose: Not Given Hydrochlorothiazide (Hctz -) 12.5 mg PO DAILY [facility] Last Admin: 06/06/18 10:52 Dose: 12.5 mg Ceftriaxone Sodium 1 gm/ (Dextrose) 50 mls @ 100 mls/hr IVPB DAILY [facility]; Protocol Last Admin: 06/06/18 01:20 Dose: 100 mls/hr Sodium Chloride (Normal Saline -) 1,000 mls @ 50 mls/hr IV ASDIR [facility] - Allergies Allergies: Allergies Allergy/AdvReac Type Severity Reaction Status Date / Time No Known Allergies Allergy Verified 06/05/18 10:19 - Current Living Status Usual Living Arrangement: With Spouse - Current Mental Status Evaluation Appearance: Disheveled Attitude: Cooperative - Affect Affect: Constrictive Appropriateness: Appropriate to Content - Mood Mood: Depressed - Speech/Language Expressive: Coherent - Psychomotor Activity Psychomotor Activity: Slowed - Thought Process Thought Process: Intact - Self Perception Self Perception: No Impairment - Cognition Attention: Alert Orientation: Time Memory, Immediate Recall: Intact Memory, Short Term: 2/3 Memory, Remote with Promptin/3 - Concentration Serial Sevens Intact: No Simple Calculations Intact: Yes - Abstraction Proverb Interpretation: Intact Judgement: Intact - Insight Insight: Intact - Impulse Control Impulse Control: Good Control - Suicidal Ideation Suicidal Ideation: No - Homicidal Ideation Homicidal Ideation: No Assessment/Plan 1) Start Remeron 15mg po hs.
--- NOTE | 2018-06-06 18:13 | HP ---
Admitting History and Physical - Admission History of Present Illness: 73 yo male admitted with weakness, pt noted to be in urinary retention, lange could not be inserted by nursing staff. Pt denies any supraspubic discomfort. 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 Cardiovascular: Yes: HTN Pulmonary: Yes: Other (non-productive cough, lung mass of right upper lobe) Gastrointestinal: Yes: Other (status post surgery for duodenal ulcer) Hepatobiliary: Yes: Other (distant metastases) Infectious Disease: Yes: Other (dental caries) Psych: Yes: Depression Musculoskeletal: Yes: Other (generalized muscle weakness) Dermatology: Yes: Other (Decubitus ulcer of right buttock) - Past Surgical History Past Surgical History: Yes: Hernia Repair (right inguinal hernia repair) - Smoking History Smoking history: Former smoker Have you smoked in the past 12 months: No If you are a former smoker, when did you quit?: 2013 - Alcohol/Substance Use Hx Alcohol Use: No (used to drink beer) History of Substance Use: reports: None - Social History 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 Home Medications - Allergies Allergies/Adverse Reactions: Allergies Allergy/AdvReac Type Severity Reaction Status Date / Time No Known Allergies Allergy Verified 06/05/18 10:19 Family Disease History - Family Disease History Family Disease History: Diabetes: Grandparent (details not available ), Father ( details not available ), Mother, Brother (spine cancer ), Daughter (x3 healthy ) Review of Systems - Review of Systems Genitourinary: reports: No Symptoms Physical Examination Vital Signs: Vital Signs Temperature 97.7 F 06/06/18 14:49 Pulse Rate 88 06/06/18 14:49 Respiratory Rate 20 06/06/18 14:49 Blood Pressure 117/67 06/06/18 14:49 O2 Sat by Pulse Oximetry (%) 93 L 06/06/18 10:45 Renal/: Yes: Bladder Distention Labs: CBC, BMP 06/06/18 06:25 06/06/18 06:25 Problem List - Problems (1) Urinary retention Assessment/Plan: lange cath placed under sterile comditions, approx 500cc pvr. will start flomax Code(s): R33.9 - RETENTION OF URINE, UNSPECIFIED
[2018-06-06] MEDS: TAMSULOSIN HCL 0.4 MG CAP.ER.24H (FP) PO SCH (18:21)
[2018-06-06] MEDS ORDERED: CEFTRIAXONE 1 GM in DEXTROSE 5%-WATER - 50 ML IVPB ONE (18:30)
[2018-06-06] MEDS ORDERED: PT OWN MED DRAWER 7, Y5N ONE (20:37)
[2018-06-06] MEDS ORDERED: MIRTAZAPINE 15 MG TABLET (FP) PO SCH (22:00)
--- NOTE | 2018-06-06 23:02 | PN ---
Progress Note (short form) - Note Progress Note: Patient seen and examined Denies any specific complaints AFVSS Cor: RSR, No murmurs, No gallops Lungs: Clear to P&A Abd: Soft, Normal bowel sounds, No organomegaly Ext:No significant edema Skin: No rashes, Integument intact Abnormal Lab Results 06/06/18 06/06/18 06:25 06:25 WBC 11.4 H Hgb 11.4 L Hct 34.2 L MCV 79.6 L Absolute Neuts (auto) 10.2 H Neutrophils % 90.0 H Lymphocytes % 6.1 L Monocytes % 3.5 L Sodium 134 L BUN 25 H Random Glucose 209 H Calcium 7.9 L Total Protein 5.8 L Albumin 2.3 L Meds reviewed A/P 73 year old smoker with right pleural effusion, right lung mass, multiple pulmonary nodules, mediastinal lymphadenopathy and 3 masses in liver Strongly suspicious for lung ca >> lymphoma. Adenopathy causing early signs of SVC. Hyponatremia--?? SIADH Generalized muscle weakness --- ? Eaton -Lambert syndrome. ? paraneoplastic [facility]bone scan to complete staging w/u discussed with family at bed side
[2018-06-07] MEDS: SODIUM CHLORIDE 1,000 ML IV SCH ×2 (03:17→09:00)
[2018-06-07 07:42] LABS: INR 1.12 (0.83-1.09); PROTHROMBIN TIME (PATIENT) 12.7 SEC (9.7-13.0)
[2018-06-07 07:45] LABS: ACTIVATED PTT 26.5 SECONDS (25.2-36.5)
[2018-06-07] MEDS ORDERED: TAMSULOSIN HCL 0.4 MG CAP.ER.24H (FP) PO SCH (08:30)
--- NOTE | 2018-06-07 08:36 | PN ---
Progress Note (short form) - Note Progress Note: Neurology - History of Present Illness 73 y/o male was brought in by family for deconditioning, failure to thrive, generalized weakness. Reportedly with progressive decline from 3- 4 months but over the past month has not been ambulating at home. Son and daughter bedside provided collateral history. Has been reportedly not walking to bathroom, limited PO intake, difficulty with maintain hygiene and overall deterioration. He was awake, alert, and cooperative with me. Of note, has a extensive history of smoking and is being managed for mass in right upper lobe of lung, hilar mass compressing SVC, right side effusion ? SVC syndrome. Neurologically, no focal deficits and is improving in energy and activity. Psych note reviewed, started on Remeron 15mg at bedtime. No acute events overnight, slightly increased interaction this AM. Active Medications Albuterol/Ipratropium (Duoneb -) 1 amp NEB Q6H PRN PRN Reason: SHORTNESS OF BREATH Last Admin: 06/07/18 07:33 Dose: 1 amp Dexamethasone (Decadron -) 4 mg PO BID [facility] Last Admin: 06/06/18 21:24 Dose: 4 mg Enoxaparin Sodium (Lovenox -) 70 mg SQ BID [facility] Last Admin: 06/06/18 21:24 Dose: Not Given Hydrochlorothiazide (Hctz -) 12.5 mg PO DAILY [facility] Last Admin: 06/06/18 10:52 Dose: 12.5 mg Ceftriaxone Sodium 1 gm/ (Dextrose) 50 mls @ 100 mls/hr IVPB DAILY [facility]; Protocol Last Admin: 06/06/18 17:32 Dose: Not Given Sodium Chloride (Normal Saline -) 1,000 mls @ 50 mls/hr IV ASDIR [facility] Last Admin: 06/07/18 03:17 Dose: 50 mls/hr Mirtazapine (Remeron -) 15 mg PO HS [facility] Last Admin: 06/06/18 21:24 Dose: 15 mg Tamsulosin HCl (Flomax -) 0.4 mg PO DAILY@0830 [facility] Last Admin: 06/06/18 18:21 Dose: 0.4 mg Physical Exam Vital Signs Temperature 98.0 F 06/07/18 06:00 Pulse Rate 85 06/07/18 06:00 Respiratory Rate 18 06/07/18 06:00 Blood Pressure 134/76 06/07/18 06:00 O2 Sat by Pulse Oximetry (%) 98 06/06/18 21:00 Constitutional: Yes: Cachectic Eyes: Yes: Conjunctiva Clear HENT: Yes: Other (poor oral hygine) Neck: Yes: Supple. No: Lymphadenopathy, Thyromegaly Cardiovascular: Yes: Regular Rate and Rhythm, S1, S2. No: Murmur, Rub Respiratory: Yes: Other (b/l air entry present, expiratory wheez on right side, crackels present on right side. no axillary lymphnode.) Gastrointestinal: Yes: Soft, Other (mid line scar, no ingunal lymphnodes, no scrotal swelling). No: Palpable Mass, Splenomegaly, Tenderness, Tenderness, Epigastrium, Tenderness, Rebound Renal/: No: CVA Tenderness - Right Musculoskeletal: No: Back Pain Extremities: Yes: Cold, Other (muscle loss) Edema: No Neurological: Yes: Alert, Oriented, Cran Nerves II-XII Intact, moving all ext equally, sensory intact, gait deferred Psychiatric: Yes: Alert, Oriented CBCD WBC 11.4 K/mm3 (4.0-10.0) H 06/06/18 06:25 RBC 4.29 M/mm3 (4.00-5.60) 06/06/18 06:25 Hgb 11.4 GM/dL (11.7-16.9) L 06/06/18 06:25 Hct 34.2 % (35.4-49) L 06/06/18 06:25 MCV 79.6 fl (80-96) L 06/06/18 06:25 MCHC 33.4 g/dl (32.0-35.9) 06/06/18 06:25 RDW 15.5 % (11.9-15.9) 06/06/18 06:25 Plt Count 275 K/MM3 (134-434) 06/06/18 06:25 MPV 7.6 fl (7.5-11.1) 06/06/18 06:25 CMP Sodium 134 mmol/L (136-145) L 06/06/18 06:25 Potassium 4.2 mmol/L (3.5-5.1) 06/06/18 06:25 Chloride 101 mmol/L (98-107) 06/06/18 06:25 Carbon Dioxide 22 mmol/L (21-32) 06/06/18 06:25 Anion Gap 11 MMOL/L (8-16) 06/06/18 06:25 BUN 25 mg/dL (7-18) H 06/06/18 06:25 Creatinine 0.7 mg/dL (0.7-1.3) 06/06/18 06:25 Creat Clearance w eGFR > 60 (>60) 06/06/18 06:25 Random Glucose 209 mg/dL (74-106) H 06/06/18 06:25 Calcium 7.9 mg/dL (8.5-10.1) L 06/06/18 06:25 Total Bilirubin 0.4 mg/dL (0.2-1.0) 06/06/18 06:25 AST 15 U/L (15-37) D 06/06/18 06:25 ALT 30 U/L (12-78) D 06/06/18 06:25 Alkaline Phosphatase 108 U/L (45-117) D 06/06/18 06:25 Total Protein 5.8 g/dl (6.4-8.2) L 06/06/18 06:25 Albumin 2.3 g/dl (3.4-5.0) L 06/06/18 06:25 CARDIAC ENZYMES Troponin I < 0.02 ng/ml (0.00-0.05) 06/05/18 11:25 Imaging - Results Cat Scan: Report Reviewed Assessment/Plan 73 y/o male was brought in by family for deconditioning, failure to thrive, generalized weakness. Reportedly with progressive decline from 3- 4 months but over the past month has not been ambulating at home. Son and daughter bedside provided collateral history. Has been reportedly not walking to bathroom, limited PO intake, difficulty with maintain hygiene and overall deterioration. He was awake, alert, and cooperative with me. Of note, has a extensive history of smoking and is being managed for mass in right upper lobe of lung, hilar mass compressing SVC, right side effusion ? SVC syndrome. Neurologically, no focal deficits and is improving in energy and activity. Being fed breakfast at bedside. 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 If desired, Ab can be sent out. Recommend continued workup/plan with thoracentesis or IR guided biopsy. Started on decadron, no objection to this. Imaging as desired by Onc. Physical therapy as tolerated. Psych eval appreciated, Remeron started 15mg qhs. No further rec'd at this time.
[2018-06-07] MEDS: TAMSULOSIN HCL 0.4 MG CAP.ER.24H (FP) PO SCH (08:41)
[2018-06-07] MEDS ORDERED: cefTRIAXone SODIUM 1 GM VIAL ONE (09:24)
[2018-06-07] MEDS ORDERED: DEXTROSE 5%-WATER - 50 ML IVPB ONE (09:25)
[2018-06-07] MEDS: DEXAMETHASONE 4 MG TABLET (FP) PO SCH ×2 (09:57→23:53)
[2018-06-07] MEDS: CEFTRIAXONE 1 GM in DEXTROSE 5%-WATER - 50 ML IVPB SCH (09:57)
[2018-06-07] MEDS: HYDROCHLOROTHIAZIDE 12.5 MG CAPSULE (FP) PO SCH (09:57)
--- NOTE | 2018-06-07 14:21 | PN ---
Progress Note, Physician History of Present Illness: PULMONARY AWAKE,-RESP DISTRESS,S/P THORACENTESIS. PT C/O SEEING OBJECTS MOVING ON THE WALL - Current Medication List Current Medications: Active Medications Albuterol/Ipratropium (Duoneb -) 1 amp NEB Q6H PRN PRN Reason: SHORTNESS OF BREATH Last Admin: 06/07/18 07:33 Dose: 1 amp Dexamethasone (Decadron -) 4 mg PO BID [facility] Last Admin: 06/07/18 09:57 Dose: 4 mg Enoxaparin Sodium (Lovenox -) 70 mg SQ BID [facility] Last Admin: 06/06/18 21:24 Dose: Not Given Hydrochlorothiazide (Hctz -) 12.5 mg PO DAILY [facility] Last Admin: 06/07/18 09:57 Dose: 12.5 mg Ceftriaxone Sodium 1 gm/ (Dextrose) 50 mls @ 100 mls/hr IVPB DAILY [facility]; Protocol Last Admin: 06/07/18 09:57 Dose: 100 mls/hr Sodium Chloride (Normal Saline -) 1,000 mls @ 50 mls/hr IV ASDIR [facility] Last Admin: 06/07/18 03:17 Dose: 50 mls/hr Mirtazapine (Remeron -) 15 mg PO HS [facility] Last Admin: 06/06/18 21:24 Dose: 15 mg Tamsulosin HCl (Flomax -) 0.4 mg PO DAILY@0830 [facility] Last Admin: 06/07/18 08:41 Dose: Not Given - Objective Vital Signs: Vital Signs Temperature 98.0 F 06/07/18 14:10 Pulse Rate 94 H 06/07/18 14:10 Respiratory Rate 18 06/07/18 14:10 Blood Pressure 146/77 06/07/18 14:10 O2 Sat by Pulse Oximetry (%) 98 06/06/18 21:00 Constitutional: Yes: Well Nourished, Calm Eyes: Yes: WNL HENT: Yes: WNL Neck: Yes: Supple Cardiovascular: Yes: Regular Rate and Rhythm, S1, S2 Respiratory: Yes: Diminished Gastrointestinal: Yes: Normal Bowel Sounds, Soft Extremities: Yes: WNL Edema: No Labs: CBC, BMP Assessment/Plan Problem List - Problems (1) COPD (chronic obstructive pulmonary disease) Code(s): J44.9 - CHRONIC OBSTRUCTIVE PULMONARY DISEASE, UNSPECIFIED (2) Pleural effusion Code(s): J90 - PLEURAL EFFUSION, NOT ELSEWHERE CLASSIFIED (3) Hilar mass Code(s): R91.8 - OTHER NONSPECIFIC ABNORMAL FINDING OF LUNG FIELD (4) Hyponatremia Code(s): E87.1 - HYPO-OSMOLALITY AND HYPONATREMIA (5) Liver metastasis Code(s): C78.7 - SECONDARY MALIG NEOPLASM OF LIVER AND INTRAHEPATIC BILE DUCT (6) Lung mass Code(s): R91.8 - OTHER NONSPECIFIC ABNORMAL FINDING OF LUNG FIELD (7) Poor appetite Code(s): R63.0 - ANOREXIA (8) Superior vena cava compression syndrome Code(s): I87.1 - COMPRESSION OF VEIN Assessment/PLAN Noted therapeutic LMWH: will need to be held for biopsy O2 as needed Low clinical suspicion of infection: Low threshold to D/C ABX No smoking BD TX PRN Consider neuro eval head ct ? mets check cytolgy pleural fluid DR MADRID
--- NOTE | 2018-06-07 15:08 | PN ---
Progress Note, Physician Chief Complaint: Patient complains of seeing ants on the wall, difficulty in speech, constipation. History of Present Illness: This 73 yr old w/m with hx of hypertension admitted via ER with acute exacerbation of generalized muscle weakness, unintentional weight loss, difficulty in walking, acute hyponatremia, acute leukocytosis with neutrophilia and lung mass of the right upper lobe. - Current Medication List Current Medications: Active Medications Albuterol/Ipratropium (Duoneb -) 1 amp NEB Q6H PRN PRN Reason: SHORTNESS OF BREATH Last Admin: 06/07/18 07:33 Dose: 1 amp Dexamethasone (Decadron -) 4 mg PO BID [facility] Last Admin: 06/07/18 09:57 Dose: 4 mg Enoxaparin Sodium (Lovenox -) 70 mg SQ BID [facility] Last Admin: 06/06/18 21:24 Dose: Not Given Hydrochlorothiazide (Hctz -) 12.5 mg PO DAILY [facility] Last Admin: 06/07/18 09:57 Dose: 12.5 mg Ceftriaxone Sodium 1 gm/ (Dextrose) 50 mls @ 100 mls/hr IVPB DAILY [facility]; Protocol Last Admin: 06/07/18 09:57 Dose: 100 mls/hr Sodium Chloride (Normal Saline -) 1,000 mls @ 50 mls/hr IV ASDIR [facility] Last Admin: 06/07/18 03:17 Dose: 50 mls/hr Mirtazapine (Remeron -) 15 mg PO HS [facility] Last Admin: 06/06/18 21:24 Dose: 15 mg Tamsulosin HCl (Flomax -) 0.4 mg PO DAILY@0830 [facility] Last Admin: 06/07/18 08:41 Dose: Not Given - Objective Vital Signs: Vital Signs Temperature 98.0 F 06/07/18 14:10 Pulse Rate 94 H 06/07/18 14:10 Respiratory Rate 18 06/07/18 14:10 Blood Pressure 146/77 06/07/18 14:10 O2 Sat by Pulse Oximetry (%) 98 06/06/18 21:00 Constitutional: Yes: Well Nourished, Mild Distress Eyes: Yes: Conjunctiva Clear, EOM Intact HENT: Yes: Atraumatic, Normocephalic Neck: Yes: Supple, Trachea Midline Cardiovascular: Yes: Regular Rate and Rhythm Respiratory: Yes: Regular, CTA Bilaterally, Cough, Diminished Gastrointestinal: Yes: Normal Bowel Sounds, Soft ...Rectal Exam: Yes: Deferred Genitourinary: Yes: Bladder Distention Breast(s): Yes: WNL Musculoskeletal: Yes: Muscle Weakness (generalized) Extremities: Yes: Cool Edema: No Peripheral Pulses WNL: Yes Integumentary: Yes: Pressure Ulcer (erythema of the left hip) Neurological: Yes: Alert, Oriented, Unsteady Gait, Weakness (generalized muscle weakness), Other (difficulty in expressive functional communication, visual hallucinations) ...Motor Strength: LUE (muscle weakness), LLE (muscle weakness), RUE (muscle weakness), RLE (muscle weakness) Psychiatric: Yes: Alert, Oriented Labs: CBC, BMP 06/06/18 06:25 06/06/18 06:25 INR, PTT INR 1.12 (0.83-1.09) H 06/07/18 06:41 - ....Imaging Chest X-ray: Report Reviewed Other: Report Reviewed (Consultants notes read and appreciated.) Problem List - Problems (1) Hyponatremia Assessment/Plan: IV fluids Code(s): E87.1 - HYPO-OSMOLALITY AND HYPONATREMIA (2) Opacity of lung on imaging study Assessment/Plan: Thoracentesis done today, awaiting results from pathology department. Code(s): R91.8 - OTHER NONSPECIFIC ABNORMAL FINDING OF LUNG FIELD (3) Poor appetite Assessment/Plan: appetite gradually improving Code(s): R63.0 - ANOREXIA Assessment/Plan Plan: acute visual hallucinations, acute difficulty in expressive functional communication, acute hyponatremia, IV fluids, CT Scan of the brain to rule out distant metastases, discontinue Remeron, repeat cbc and basic metabolic profile , discussed clinical condition of the patient with his , son and daughter Vera.
[2018-06-07 15:29] LABS: GLUCOSE,PLEURAL FLUID 350.74; TOTAL PROTEIN,PLEURAL FLUID 2.911
[2018-06-07 15:37] LABS: PLEURAL FLUID APPEARANCE CLEAR; PLEURAL FLUID COLOR YELLOW; PLEURAL FLUID RBC 2347 /mm3
--- NOTE | 2018-06-07 15:47 | PN ---
Progress Note (short form) - Note Progress Note: s/p thoracentesis eating improved now with lange Vital Signs Period Temp Pulse Resp BP Sys/Garcia Pulse Ox Last 24 Hr 97.4 F-98.0 F 85-94 18-20 133-146/64-87 96-98 cor-rrr lungs decreased bs at bases abd soft,nt ext less swelling left arm CBC, BMP 06/06/18 06:25 06/06/18 06:25 Microbiology 06/07/18 10:45 Pleural Fluid MICHAEL Preparation - Preliminary 06/07/18 10:45 Pleural Fluid Fungal Culture - Preliminary 06/05/18 23:39 Urine - Urine Clean Catch Urine Culture - Preliminary Lactose Fermenting Neg Bacilli 06/05/18 11:05 Blood - Peripheral Venous Blood Culture - Preliminary NO GROWTH OBTAINED AFTER 48 HOURS, INCUBATION TO CONTINUE FOR 3 DAYS. 06/05/18 11:30 Blood - Peripheral Venous Blood Culture - Preliminary NO GROWTH OBTAINED AFTER 48 HOURS, INCUBATION TO CONTINUE FOR 3 DAYS. a/p malignancy workup in progress impending svc syndrome UTI continue ceftriaxone for now
[2018-06-07 19:12] LABS: PLEURAL FLUID LYMPHOCYTES 52 %; PLEURAL FLUID MACROPHAGES 20 %; PLEURAL FLUID MESOTHELIAL 9 %; PLEURAL FLUID NEUTROPHIL 19 %
[2018-06-07] MEDS: DOCUSATE SODIUM 100 MG CAPSULE (FP) PO SCH (23:52)
[2018-06-08] MEDS: SODIUM CHLORIDE 1,000 ML IV SCH ×2 (00:22→08:00)
[2018-06-08 08:04] LABS: ANION GAP 11 MMOL/L (8-16); BLOOD UREA NITROGEN 21 mg/dL (7-18); CALCIUM 8.5 mg/dL (8.5-10.1); CHLORIDE 104 mmol/L (98-107); CO2 23 mmol/L (21-32); CREATININE 0.7 mg/dL (0.7-1.3); POTASSIUM 3.6 mmol/L (3.5-5.1); SODIUM 138 mmol/L (136-145)
[2018-06-08 08:22] LABS: BASO % 0.2 % (0-2.0); EOS % 0.6 % (0-4.5); HEMATOCRIT 34.6 % (35.4-49); HEMOGLOBIN 11.4 GM/dL (11.7-16.9); LYMPH % 8.9 % (8-40); MCH 26.4 pg (25.7-33.7); MCHC 32.9 g/dl (32.0-35.9); MEAN CELL VOLUME 80.2 fl (80-96); MEAN PLT VOLUME 7.3 fl (7.5-11.1); MONO % 9.2 % (3.8-10.2); NEUT % 81.1 % (42.8-82.8); PLATELET COUNT 210 K/MM3 (134-434); RBC 4.31 M/mm3 (4.00-5.60); RDW 15.4 % (11.9-15.9); WHITE BLOOD COUNT 13.8 K/mm3 (4.0-10.0)
[2018-06-08 08:25] LABS: GLUCOSE,RANDOM 302 mg/dL (74-106)
--- NOTE | 2018-06-08 09:51 | PN ---
Progress Note, Physician Chief Complaint: Appetite improving, gradual deterioration in expressive functional communication , intermittent visual hallucinations, gradual onset of shortness of breath especially during mild physical exertion and during speaking. History of Present Illness: This 73 yr old w/m with hx of hypertension admitted with right lung mass and mediastinal lymphadenopathy, multiple pulmonary nodules and 3 masses of the liver, unintentional weight loss, anorexia, leukocytosis with neutrophilia and acute exacerbation of generalized muscle weakness. - Current Medication List Current Medications: Active Medications Albuterol/Ipratropium (Duoneb -) 1 amp NEB Q6H PRN PRN Reason: SHORTNESS OF BREATH Last Admin: 06/07/18 07:33 Dose: 1 amp Dexamethasone (Decadron -) 4 mg PO BID [facility] Last Admin: 06/07/18 23:53 Dose: Not Given Docusate Sodium (Colace -) 200 mg PO HS [facility] Last Admin: 06/07/18 23:52 Dose: Not Given Enoxaparin Sodium (Lovenox -) 70 mg SQ BID [facility] Last Admin: 06/06/18 21:24 Dose: Not Given Hydrochlorothiazide (Hctz -) 12.5 mg PO DAILY [facility] Last Admin: 06/07/18 09:57 Dose: 12.5 mg Ceftriaxone Sodium 1 gm/ (Dextrose) 50 mls @ 100 mls/hr IVPB DAILY [facility]; Protocol Last Admin: 06/07/18 09:57 Dose: 100 mls/hr Sodium Chloride (Normal Saline -) 1,000 mls @ 50 mls/hr IV ASDIR [facility] Last Admin: 06/08/18 00:22 Dose: 50 mls/hr Tamsulosin HCl (Flomax -) 0.4 mg PO DAILY@0830 [facility] Last Admin: 06/07/18 08:41 Dose: Not Given - Objective Vital Signs: Vital Signs Temperature 97.5 F L 06/08/18 06:00 Pulse Rate 89 06/08/18 06:00 Respiratory Rate 18 06/08/18 08:53 Blood Pressure 126/66 06/08/18 06:00 O2 Sat by Pulse Oximetry (%) 90 L 06/08/18 08:53 Constitutional: Yes: Well Nourished, Anxious Eyes: Yes: Conjunctiva Clear, EOM Intact HENT: Yes: Atraumatic, Normocephalic Neck: Yes: Supple, Trachea Midline Cardiovascular: Yes: Regular Rate and Rhythm Respiratory: Yes: Regular, CTA Bilaterally, Cough, Dullness Gastrointestinal: Yes: Normal Bowel Sounds, Soft ...Rectal Exam: Yes: Deferred Genitourinary: Yes: Bladder Distention Breast(s): Yes: WNL Musculoskeletal: Yes: Muscle Weakness (generalized muscle weakness) Extremities: Yes: Cool Edema: No Peripheral Pulses WNL: Yes Integumentary: Yes: Pressure Ulcer (pressure ulcer stage I of the left hip) Neurological: Yes: Alert, Oriented, Unsteady Gait, Weakness ...Motor Strength: LUE (muscle weakness), LLE (muscle weakness), RUE (muscle weakness), RLE Psychiatric: Yes: Alert, Oriented Labs: CBC, BMP 06/08/18 06:00 06/08/18 06:00 INR, PTT INR 1.12 (0.83-1.09) H 06/07/18 06:41 - ....Imaging Other: Report Reviewed (Lab data reviewed.) Problem List - Problems (1) Lung mass Assessment/Plan: Conservative treatment. On oxygen to alleviate dyspnea. Code(s): R91.8 - OTHER NONSPECIFIC ABNORMAL FINDING OF LUNG FIELD (2) Pleural effusion Assessment/Plan: Status post thoracentesis, awaiting pathology results. Code(s): J90 - PLEURAL EFFUSION, NOT ELSEWHERE CLASSIFIED (3) Superior vena cava compression syndrome Assessment/Plan: Oral decadron. Code(s): I87.1 - COMPRESSION OF VEIN (4) Urinary retention Assessment/Plan: Tamsulosin Code(s): R33.9 - RETENTION OF URINE, UNSPECIFIED (5) Diabetes mellitus Assessment/Plan: Novolog sliding scale QID Code(s): E11.9 - TYPE 2 DIABETES MELLITUS WITHOUT COMPLICATIONS Assessment/Plan Plan: Superior vena cava syndrome, lung mass of the right upper lobe, urinary retention, intermittent visual hallucinations, new onset of dyspnea, NIDDM, acute UTI, Novolog sliding scale, oxygen via nasal cannula, discontinue normal saline, s/p thoracentesis, discussed clinical condition of the patient with daughter Vera.
[2018-06-08] MEDS ORDERED: INSULIN SLIDING SCALE (NOVOLOG) 1 VIAL SQ SCH (11:00)
--- NOTE | 2018-06-08 11:10 | PN ---
Progress Note, Physician History of Present Illness: pulmonary alert,c/o mild sob.-cp - Current Medication List Current Medications: Active Medications Albuterol/Ipratropium (Duoneb -) 1 amp NEB Q6H PRN PRN Reason: SHORTNESS OF BREATH Last Admin: 06/07/18 07:33 Dose: 1 amp Dexamethasone (Decadron -) 4 mg PO BID [facility] Last Admin: 06/07/18 23:53 Dose: Not Given Docusate Sodium (Colace -) 200 mg PO HS [facility] Last Admin: 06/07/18 23:52 Dose: Not Given Enoxaparin Sodium (Lovenox -) 70 mg SQ BID [facility] Last Admin: 06/06/18 21:24 Dose: Not Given Hydrochlorothiazide (Hctz -) 12.5 mg PO DAILY [facility] Last Admin: 06/07/18 09:57 Dose: 12.5 mg Ceftriaxone Sodium 1 gm/ (Dextrose) 50 mls @ 100 mls/hr IVPB DAILY [facility]; Protocol Last Admin: 06/07/18 09:57 Dose: 100 mls/hr Insulin Aspart (Novolog Vial Sliding Scale -) 1 vial SQ ACHS [facility]; Protocol Tamsulosin HCl (Flomax -) 0.4 mg PO DAILY@0830 [facility] Last Admin: 06/07/18 08:41 Dose: Not Given - Objective Vital Signs: Vital Signs Temperature 97.5 F L 06/08/18 06:00 Pulse Rate 89 06/08/18 06:00 Respiratory Rate 18 06/08/18 08:53 Blood Pressure 126/66 06/08/18 06:00 O2 Sat by Pulse Oximetry (%) 90 L 06/08/18 08:53 Constitutional: Yes: Well Nourished, Calm Eyes: Yes: WNL HENT: Yes: WNL Neck: Yes: WNL Cardiovascular: Yes: Regular Rate and Rhythm, S1, S2 Respiratory: Yes: Rales (crackles r base) Gastrointestinal: Yes: Normal Bowel Sounds, Soft Extremities: Yes: WNL Edema: No Labs: CBC, BMP 06/08/18 06:00 06/08/18 06:00 INR, PTT INR 1.12 (0.83-1.09) H 06/07/18 06:41 Laboratory Tests 06/07/18 10:45 Pleural WBC 431 Pleural RBC 2347 Pleural Neutrophils 19 Pleural Lymphocytes 52 Pleural Macrophages 20 Pleural Total Protein 2.911 Pleural Albumin 2 Pleural LDH 112.2 Pleural Glucose 350.74 Pleural Amylase 14.32 Pleural Triglycerides 25 Assessment/Plan Problem List - Problems (1) COPD (chronic obstructive pulmonary disease) Code(s): J44.9 - CHRONIC OBSTRUCTIVE PULMONARY DISEASE, UNSPECIFIED (2) Pleural effusion Code(s): J90 - PLEURAL EFFUSION, NOT ELSEWHERE CLASSIFIED EXUDATE BY ALBUMIN GRADIENT CRITERIA (3) Hilar mass Code(s): R91.8 - OTHER NONSPECIFIC ABNORMAL FINDING OF LUNG FIELD (4) Hyponatremia Code(s): E87.1 - HYPO-OSMOLALITY AND HYPONATREMIA (5) Liver metastasis Code(s): C78.7 - SECONDARY MALIG NEOPLASM OF LIVER AND INTRAHEPATIC BILE DUCT (6) Lung mass Code(s): R91.8 - OTHER NONSPECIFIC ABNORMAL FINDING OF LUNG FIELD (7) Poor appetite Code(s): R63.0 - ANOREXIA (8) Superior vena cava compression syndrome Code(s): I87.1 - COMPRESSION OF VEIN Assessment/PLAN O2 as needed No smoking BD TX PRN check cytology pleural fluid DR MADRID
[2018-06-08] MEDS ORDERED: cefTRIAXone SODIUM 1 GM VIAL ONE (11:19)
[2018-06-08] MEDS ORDERED: DEXTROSE 5%-WATER - 50 ML IVPB ONE (11:19)
[2018-06-08] MEDS: TAMSULOSIN HCL 0.4 MG CAP.ER.24H (FP) PO SCH (11:48)
[2018-06-08] MEDS: DEXAMETHASONE 4 MG TABLET (FP) PO SCH ×2 (11:48→22:37)
[2018-06-08] MEDS: HYDROCHLOROTHIAZIDE 12.5 MG CAPSULE (FP) PO SCH (11:48)
[2018-06-08] MEDS: ENOXAPARIN NA (PORCINE) 80 MG/0.8 ML DISP.SYRIN SQ SCH ×2 (11:49→22:37)
[2018-06-08] MEDS: CEFTRIAXONE 1 GM in DEXTROSE 5%-WATER - 50 ML IVPB SCH (12:45)
[2018-06-08] MEDS ORDERED: MAGNESIUM HYDROX 2400MG/30ML ORAL SUSPENSION 30 ML CUP PO ONE (13:15)
--- NOTE | 2018-06-08 16:18 | PN ---
Progress Note (short form) - Note Progress Note: Patient seen and examined Denies any specific complaints Last Vital Signs Temp Pulse Resp BP Pulse Ox 98.3 F 89 20 122/64 92 L 06/08/18 15:32 06/08/18 15:32 06/08/18 15:32 06/08/18 15:32 06/08/18 09:00 Cor: RSR, No murmurs, No gallops Lungs: Clear to P&A Abd: Soft, Normal bowel sounds, No organomegaly Ext:No significant edema Skin: No rashes, Integument intact Abnormal Lab Results 06/08/18 06/08/18 06:00 06:00 WBC 13.8 H Hgb 11.4 L Hct 34.6 L MPV 7.3 L Absolute Neuts (auto) 11.2 H BUN 21 H Random Glucose 302 H* D Active Medications Generic Name Dose Route Start Last Admin Trade Name Freq PRN Reason Stop Dose Admin Albuterol/Ipratropium 1 amp 06/05/18 20:05 06/07/18 07:33 Duoneb - NEB 1 amp Q6H PRN Administration SHORTNESS OF BREATH Dexamethasone 4 mg 06/06/18 06:00 06/08/18 11:48 Decadron - PO 4 mg BID [facility] Administration Docusate Sodium 200 mg 06/07/18 22:00 06/07/18 23:52 Colace - PO Not Given HS [facility]ON[facility] Enoxaparin Sodium 70 mg 06/05/18 22:00 06/08/18 11:49 Lovenox - SQ 70 mg BID [facility] Administration Hydrochlorothiazide 12.5 mg 06/06/18 10:00 06/08/18 11:48 Hctz - PO 12.5 mg DAILY [facility] Administration Ceftriaxone Sodium 1 gm/ 50 mls @ 100 mls/hr 06/06/18 00:45 06/08/18 12:45 Dextrose IVPB 100 mls/hr DAILY [facility] Administration Protocol Insulin Aspart 1 vial 06/08/18 16:30 Novolog Vial Sliding Scale - SQ ACHS [facility] Protocol Pantoprazole Sodium 40 mg 06/08/18 16:30 Protonix - PO DAILY [facility] Polyethylene Glycol 17 gm 06/08/18 22:00 Miralax (For Daily Use) - PO DAILY [facility] Tamsulosin HCl 0.4 mg 06/06/18 18:15 06/08/18 11:48 Flomax - PO 0.4 mg DAILY@0830 [facility] Administration A/P 73 year old smoker with right pleural effusion, right lung mass, multiple pulmonary nodules, mediastinal lymphadenopathy and 3 masses in liver Strongly suspicious for lung ca >> lymphoma. Adenopathy causing early signs of SVC. Hyponatremia--?? SIADH Generalized muscle weakness --- ? Eaton -Lambert syndrome. ? paraneoplastic s/p Thoracentesis-- cytology pending resumed lovenox Will check MRI brain/bone scan to complete staging w/u constipation--add miaralax. may need relistor if needed discussed with family at bed side
[2018-06-08] MEDS: INSULIN SLIDING SCALE (NOVOLOG) 1 VIAL SQ SCH ×2 (17:43→22:40)
[2018-06-08] MEDS: DOCUSATE SODIUM 100 MG CAPSULE (FP) PO SCH (22:37)
[2018-06-08] MEDS: POLYETHYLENE GLYCOL 3350 119 GM BTL PO SCH (22:38)
[2018-06-09] MEDS: INSULIN SLIDING SCALE (NOVOLOG) 1 VIAL SQ SCH ×4 (06:21→22:02)
[2018-06-09] MEDS ORDERED: SODIUM PHOSPHATE/NA BIPHOS 133 ML ENEMA RC ONE (08:30)
[2018-06-09] MEDS ORDERED: MINERAL OIL 30 ML UNIT-DOSE CUP PO ONE (08:30)
[2018-06-09] MEDS: TAMSULOSIN HCL 0.4 MG CAP.ER.24H (FP) PO SCH (08:54)
[2018-06-09] MEDS ORDERED: cefTRIAXone SODIUM 1 GM VIAL ONE (09:21)
[2018-06-09] MEDS ORDERED: DEXTROSE 5%-WATER - 50 ML IVPB ONE (09:21)
[2018-06-09] MEDS: PANTOPRAZOLE 40 MG TABLET (FP) PO SCH (09:30)
[2018-06-09] MEDS: DEXAMETHASONE 4 MG TABLET (FP) PO SCH ×2 (09:30→22:02)
[2018-06-09] MEDS: HYDROCHLOROTHIAZIDE 12.5 MG CAPSULE (FP) PO SCH (09:30)
[2018-06-09] MEDS: ENOXAPARIN NA (PORCINE) 80 MG/0.8 ML DISP.SYRIN SQ SCH ×2 (09:31→22:01)
[2018-06-09] MEDS: POLYETHYLENE GLYCOL 3350 119 GM BTL PO SCH (09:31)
[2018-06-09] MEDS ORDERED: POLYETHYLENE GLYCOL 3350 119 GM BTL PO SCH (10:00)
[2018-06-09] MEDS: CEFTRIAXONE 1 GM in DEXTROSE 5%-WATER - 50 ML IVPB SCH (10:44)
--- NOTE | 2018-06-09 11:11 | PN ---
Progress Note, Physician History of Present Illness: PULMONARY ALERT,C/O WEAKNESS ,STILL HALLUCINATING.CT HEAD R PARIETAL MASS - Current Medication List Current Medications: Active Medications Albuterol/Ipratropium (Duoneb -) 1 amp NEB Q6H PRN PRN Reason: SHORTNESS OF BREATH Last Admin: 06/07/18 07:33 Dose: 1 amp Dexamethasone (Decadron -) 4 mg PO BID [facility] Last Admin: 06/09/18 09:30 Dose: 4 mg Docusate Sodium (Colace -) 200 mg PO HS [facility] Last Admin: 06/08/18 22:37 Dose: 200 mg Enoxaparin Sodium (Lovenox -) 70 mg SQ BID [facility] Last Admin: 06/09/18 09:31 Dose: 70 mg Hydrochlorothiazide (Hctz -) 12.5 mg PO DAILY [facility] Last Admin: 06/09/18 09:30 Dose: 12.5 mg Ceftriaxone Sodium 1 gm/ (Dextrose) 50 mls @ 100 mls/hr IVPB DAILY [facility]; Protocol Last Admin: 06/09/18 10:44 Dose: 100 mls/hr Insulin Aspart (Novolog Vial Sliding Scale -) 1 vial SQ ACHS [facility]; Protocol Last Admin: 06/09/18 06:21 Dose: 3 units Pantoprazole Sodium (Protonix -) 40 mg PO DAILY [facility] Last Admin: 06/09/18 09:30 Dose: 40 mg Polyethylene Glycol (Miralax (For Daily Use) -) 17 gm PO DAILY [facility] Last Admin: 06/09/18 09:31 Dose: 17 gm Tamsulosin HCl (Flomax -) 0.4 mg PO DAILY@0830 [facility] Last Admin: 06/09/18 08:54 Dose: 0.4 mg - Objective Vital Signs: Vital Signs Temperature 97.6 F 06/09/18 09:28 Pulse Rate 94 H 06/09/18 09:28 Respiratory Rate 18 06/09/18 09:28 Blood Pressure 145/86 06/09/18 09:28 O2 Sat by Pulse Oximetry (%) 92 L 06/08/18 21:00 Constitutional: Yes: Well Nourished, Calm Eyes: Yes: WNL HENT: Yes: WNL Neck: Yes: WNL Cardiovascular: Yes: Regular Rate and Rhythm, S1, S2 Respiratory: Yes: Diminished Gastrointestinal: Yes: Normal Bowel Sounds, Soft Extremities: Yes: WNL Edema: No Labs: CBC, BMP 06/08/18 06:00 06/08/18 06:00 INR, PTT INR 1.12 (0.83-1.09) H 06/07/18 06:41 - ....Imaging Cat Scan: Report Reviewed, Image Reviewed (MASS R PARIETAL REGION) Assessment/Plan Problem List - Problems (1) COPD (chronic obstructive pulmonary disease) Code(s): J44.9 - CHRONIC OBSTRUCTIVE PULMONARY DISEASE, UNSPECIFIED (2) Pleural effusion Code(s): J90 - PLEURAL EFFUSION, NOT ELSEWHERE CLASSIFIED EXUDATE BY ALBUMIN GRADIENT CRITERIA (3) Hilar mass Code(s): R91.8 - OTHER NONSPECIFIC ABNORMAL FINDING OF LUNG FIELD (4) Hyponatremia Code(s): E87.1 - HYPO-OSMOLALITY AND HYPONATREMIA (5) Liver metastasis Code(s): C78.7 - SECONDARY MALIG NEOPLASM OF LIVER AND INTRAHEPATIC BILE DUCT (6) Lung mass Code(s): R91.8 - OTHER NONSPECIFIC ABNORMAL FINDING OF LUNG FIELD (7) Poor appetite Code(s): R63.0 - ANOREXIA (8) Superior vena cava compression syndrome Code(s): I87.1 - COMPRESSION OF VEIN 9 R PARIETAL MASS Assessment/PLAN O2 as needed No smoking BD TX PRN check cytology pleural fluid [facility] neurology evaluation DR MADRID
[2018-06-09] MEDS ORDERED: INSULIN (NOVOLOG) ASPART 100 UNITS/ML 10ML VIAL ONE (12:11)
--- NOTE | 2018-06-09 13:43 | PN ---
Progress Note, Physician Chief Complaint: Visual hallucinations, gradual worsening of shortness of breath, constipation, non-productive cough. History of Present Illness: This 73 yr old w/m with hx of hypertension admitted with right lung mass with mediastinal lymphadenopathy, right pleural effusion, multiple pulmonary nodules, 3 masses in the liver, acute hyponatremia, acute generalized muscle weakness. - Current Medication List Current Medications: Active Medications Albuterol/Ipratropium (Duoneb -) 1 amp NEB Q6H PRN PRN Reason: SHORTNESS OF BREATH Last Admin: 06/07/18 07:33 Dose: 1 amp Dexamethasone (Decadron -) 4 mg PO BID [facility] Last Admin: 06/09/18 09:30 Dose: 4 mg Docusate Sodium (Colace -) 200 mg PO HS [facility] Last Admin: 06/08/18 22:37 Dose: 200 mg Enoxaparin Sodium (Lovenox -) 70 mg SQ BID [facility] Last Admin: 06/09/18 09:31 Dose: 70 mg Hydrochlorothiazide (Hctz -) 12.5 mg PO DAILY [facility] Last Admin: 06/09/18 09:30 Dose: 12.5 mg Ceftriaxone Sodium 1 gm/ (Dextrose) 50 mls @ 100 mls/hr IVPB DAILY [facility]; Protocol Last Admin: 06/09/18 10:44 Dose: 100 mls/hr Insulin Aspart (Novolog Vial Sliding Scale -) 1 vial SQ ACHS [facility]; Protocol Last Admin: 06/09/18 12:15 Dose: 5 units Pantoprazole Sodium (Protonix -) 40 mg PO DAILY [facility] Last Admin: 06/09/18 09:30 Dose: 40 mg Polyethylene Glycol (Miralax (For Daily Use) -) 17 gm PO DAILY [facility] Last Admin: 06/09/18 09:31 Dose: 17 gm Tamsulosin HCl (Flomax -) 0.4 mg PO DAILY@0830 [facility] Last Admin: 06/09/18 08:54 Dose: 0.4 mg - Objective Vital Signs: Vital Signs Temperature 97.6 F 06/09/18 09:28 Pulse Rate 94 H 06/09/18 09:28 Respiratory Rate 18 06/09/18 09:28 Blood Pressure 145/86 06/09/18 09:28 O2 Sat by Pulse Oximetry (%) 92 L 06/08/18 21:00 Constitutional: Yes: Well Nourished, Mild Distress Eyes: Yes: Conjunctiva Clear, EOM Intact HENT: Yes: Atraumatic, Normocephalic Neck: Yes: Supple, Trachea Midline Cardiovascular: Yes: Regular Rate and Rhythm Respiratory: Yes: Regular, CTA Bilaterally, Cough, Diminished, Dullness, On Nasal O2, Rhonchi Gastrointestinal: Yes: Normal Bowel Sounds, Distention ...Rectal Exam: Yes: Deferred Genitourinary: Yes: Cruz Present Breast(s): Yes: WNL Musculoskeletal: Yes: Muscle Weakness (generalized muscle weakness) Extremities: Yes: Cool Edema: No Peripheral Pulses WNL: Yes Integumentary: Yes: Pressure Ulcer (stage I of the left hip) Neurological: Yes: Alert, Oriented ...Motor Strength: LUE (muscle weakness), LLE (muscle weakness), RUE (muscle weakness), RLE (muscle weakness) Psychiatric: Yes: Alert, Oriented Labs: CBC, BMP 06/08/18 06:00 06/08/18 06:00 INR, PTT INR 1.12 (0.83-1.09) H 06/07/18 06:41 - ....Imaging Cat Scan: Report Reviewed Other: Report Reviewed (Pulmonary consult read and appreciated) Problem List - Problems (1) Lung mass Assessment/Plan: Lung mass in the right upper lobe with mediastinal lymphadenopathy and muliple pulmonary nodules. Supportive care. Code(s): R91.8 - OTHER NONSPECIFIC ABNORMAL FINDING OF LUNG FIELD (2) Pleural effusion Assessment/Plan: S/p right thoracentesis, pathology report pending. Code(s): J90 - PLEURAL EFFUSION, NOT ELSEWHERE CLASSIFIED (3) Superior vena cava compression syndrome Assessment/Plan: Oral Decadron. Code(s): I87.1 - COMPRESSION OF VEIN (4) Urinary retention Assessment/Plan: Tamsulosin. Code(s): R33.9 - RETENTION OF URINE, UNSPECIFIED (5) Diabetes mellitus Assessment/Plan: Novolog 70/30 plus regular insulin coverage Code(s): E11.9 - TYPE 2 DIABETES MELLITUS WITHOUT COMPLICATIONS Assessment/Plan Plan: Right parietal lobe mass 2 cm, visual hallucinations, improving expressive functional communication, gradual worsening of dyspnea, constipation , Miralax, Milk of Magnesia, Mineral oil, MRI of the brain, discussed clinical condition of the patient with the family.
[2018-06-09] MEDS ORDERED: traMADol HCL 50 MG TABLET PO PRN (21:50)
[2018-06-09] MEDS: DOCUSATE SODIUM 100 MG CAPSULE (FP) PO SCH (22:02)
[2018-06-09] MEDS: MIRTAZAPINE 15 MG TABLET (FP) PO SCH (22:02)
--- NOTE | 2018-06-09 23:10 | PN ---
Progress Note (short form) - Note Progress Note: Patient seen and examined c/o rt. shoulder pain AFVSS Cor: RSR, No murmurs, No gallops Lungs: Clear to P&A Abd: Soft, Normal bowel sounds, No organomegaly Ext:No significant edema Skin: No rashes, Integument intact Labs/Meds reviewed A/P 73 year old smoker with right pleural effusion, right lung mass, multiple pulmonary nodules, mediastinal lymphadenopathy and 3 masses in liver Strongly suspicious for lung ca >> lymphoma. Adenopathy causing early signs of SVC. Hyponatremia--?? SIADH Generalized muscle weakness --- ? Eaton -Lambert syndrome. ? paraneoplastic s/p Thoracentesis-- cytology pending resumed lovenox Will check MRI brain/bone scan
[2018-06-10] MEDS: INSULIN SLIDING SCALE (NOVOLOG) 1 VIAL SQ SCH ×4 (06:19→21:52)
[2018-06-10] MEDS: INSULIN (NOVOLOG MIX 70/30) 100 UNITS/ML MDV SQ SCH (06:19)
[2018-06-10] MEDS ORDERED: INSULIN (NOVOLOG) ASPART 100 UNITS/ML 10ML VIAL ONE ×2 (06:45→12:03)
[2018-06-10 07:15] LABS: BASO % 0.1 % (0-2.0); EOS % 0.1 % (0-4.5); HEMATOCRIT 35.2 % (35.4-49); HEMOGLOBIN 11.6 GM/dL (11.7-16.9); LYMPH % 7.9 % (8-40); MCH 26.5 pg (25.7-33.7); MCHC 33.1 g/dl (32.0-35.9); MEAN PLT VOLUME 7.8 fl (7.5-11.1); MONO % 4.8 % (3.8-10.2); NEUT % 87.1 % (42.8-82.8); PLATELET COUNT 202 K/MM3 (134-434); RDW 15.5 % (11.9-15.9); WHITE BLOOD COUNT 19.3 K/mm3 (4.0-10.0)
[2018-06-10 07:43] LABS: ALBUMIN 2.5 g/dl (3.4-5.0); ALK PHOS 104 U/L (45-117); ANION GAP 12 MMOL/L (8-16); BILIRUBIN,TOTAL 0.4 mg/dL (0.2-1.0); BLOOD UREA NITROGEN 17 mg/dL (7-18); CALCIUM 8.4 mg/dL (8.5-10.1); CHLORIDE 100 mmol/L (98-107); CO2 26 mmol/L (21-32); CREATININE 0.6 mg/dL (0.7-1.3); GLUCOSE,RANDOM 98 mg/dL (74-106); POTASSIUM 3.2 mmol/L (3.5-5.1); SGOT/AST 29 U/L (15-37); SGPT/ALT 60 U/L (12-78); SODIUM 138 mmol/L (136-145); TOT PROT 5.7 g/dl (6.4-8.2)
[2018-06-10] MEDS ORDERED: DEXTROSE 5%-WATER - 50 ML IVPB ONE (09:52)
[2018-06-10] MEDS ORDERED: cefTRIAXone SODIUM 1 GM VIAL ONE (09:52)
[2018-06-10] MEDS: ENOXAPARIN NA (PORCINE) 80 MG/0.8 ML DISP.SYRIN SQ SCH (09:57)
[2018-06-10] MEDS: PANTOPRAZOLE 40 MG TABLET (FP) PO SCH ×2 (09:57→10:20)
[2018-06-10] MEDS: DEXAMETHASONE 4 MG TABLET (FP) PO SCH ×2 (09:57→21:52)
[2018-06-10] MEDS: HYDROCHLOROTHIAZIDE 12.5 MG CAPSULE (FP) PO SCH (09:57)
[2018-06-10] MEDS: CEFTRIAXONE 1 GM in DEXTROSE 5%-WATER - 50 ML IVPB SCH (09:58)
[2018-06-10] MEDS: TAMSULOSIN HCL 0.4 MG CAP.ER.24H (FP) PO SCH (09:58)
[2018-06-10 10:30] LABS: ACANTHOCYTES 0; ANISOCYTOSIS 0; HELMET CELLS 0; HOWELL-JOLLY BODIES 0; MACROCYTOSIS 0; OVALOCYTE 0; PLATELET ESTIMATE NORMAL; ROULEAU 0; SICKELED CELLS 0; TARGET CELLS 0; TEAR DROP CELLS 0; TOXIC GRANULATION 0
[2018-06-10] MEDS: POLYETHYLENE GLYCOL 3350 119 GM BTL PO SCH (10:39)
[2018-06-10] MEDS: KCL 10 MEQ IVPB 10 MEQ/100 ML INFUS.BAG IVPB SCH ×3 (10:46→13:01)
[2018-06-10] MEDS ORDERED: INSULIN (NOVOLOG MIX 70/30) 100 UNITS/ML MDV SQ ONE (12:03)
--- NOTE | 2018-06-10 12:34 | PN ---
Progress Note, Physician History of Present Illness: PULMONARY NO DISTRESS,-SOB - Current Medication List Current Medications: Active Medications Albuterol/Ipratropium (Duoneb -) 1 amp NEB Q6H PRN PRN Reason: SHORTNESS OF BREATH Last Admin: 06/07/18 07:33 Dose: 1 amp Dexamethasone (Decadron -) 4 mg PO BID [facility] Last Admin: 06/10/18 09:57 Dose: 4 mg Docusate Sodium (Colace -) 200 mg PO HS [facility] Last Admin: 06/09/18 22:02 Dose: 200 mg Enoxaparin Sodium (Lovenox -) 70 mg SQ BID [facility] Last Admin: 06/10/18 09:57 Dose: 70 mg Hydrochlorothiazide (Hctz -) 12.5 mg PO DAILY [facility] Last Admin: 06/10/18 09:57 Dose: 12.5 mg Ceftriaxone Sodium 1 gm/ (Dextrose) 50 mls @ 100 mls/hr IVPB DAILY [facility]; Protocol Last Admin: 06/10/18 09:58 Dose: 100 mls/hr Potassium Chloride (Potassium Chloride 10 Meq Premix Ivpb -) 10 meq in 100 mls @ 100 mls/hr IVPB Q60M [facility] Stop: 06/10/18 12:44 Last Admin: 06/10/18 11:51 Dose: 100 mls/hr Insulin Aspart (Novolog Vial Sliding Scale -) 1 vial SQ ACHS [facility]; Protocol Last Admin: 06/10/18 12:04 Dose: 5 units Insulin Aspart (Novolog Mix 70/30 Vial) 5 units SQ DAILY@0700 [facility] Last Admin: 06/10/18 06:19 Dose: 5 units Mirtazapine (Remeron -) 15 mg PO HS [facility] Last Admin: 06/09/18 22:02 Dose: 15 mg Pantoprazole Sodium (Protonix -) 40 mg PO DAILY [facility] Last Admin: 06/10/18 10:20 Dose: 40 mg Polyethylene Glycol (Miralax (For Daily Use) -) 17 gm PO DAILY [facility] Last Admin: 06/10/18 10:39 Dose: Not Given Tamsulosin HCl (Flomax -) 0.4 mg PO DAILY@0830 [facility] Last Admin: 06/10/18 09:58 Dose: 0.4 mg Tramadol HCl (Ultram -) 50 mg PO Q8H PRN PRN Reason: PAIN LEVEL 1-5 Last Admin: 06/09/18 22:00 Dose: 50 mg - Objective Vital Signs: Vital Signs Temperature 97.7 F 06/10/18 10:00 Pulse Rate 98 H 06/10/18 10:00 Respiratory Rate 20 06/10/18 10:00 Blood Pressure 127/63 06/10/18 10:00 O2 Sat by Pulse Oximetry (%) 91 L 06/09/18 21:00 Constitutional: Yes: Well Nourished, Calm Eyes: Yes: WNL HENT: Yes: WNL Neck: Yes: WNL Cardiovascular: Yes: Regular Rate and Rhythm, S1, S2 Respiratory: Yes: Diminished Gastrointestinal: Yes: Normal Bowel Sounds, Soft Extremities: Yes: WNL Edema: No Labs: CBC, BMP 06/10/18 06:16 06/10/18 06:16 INR, PTT INR 1.12 (0.83-1.09) H 06/07/18 06:41 Assessment/Plan Problem List - Problems (1) COPD (chronic obstructive pulmonary disease) Code(s): J44.9 - CHRONIC OBSTRUCTIVE PULMONARY DISEASE, UNSPECIFIED (2) Pleural effusion Code(s): J90 - PLEURAL EFFUSION, NOT ELSEWHERE CLASSIFIED EXUDATE BY ALBUMIN GRADIENT CRITERIA (3) Hilar mass Code(s): R91.8 - OTHER NONSPECIFIC ABNORMAL FINDING OF LUNG FIELD (4) Hyponatremia Code(s): E87.1 - HYPO-OSMOLALITY AND HYPONATREMIA (5) Liver metastasis Code(s): C78.7 - SECONDARY MALIG NEOPLASM OF LIVER AND INTRAHEPATIC BILE DUCT (6) Lung mass Code(s): R91.8 - OTHER NONSPECIFIC ABNORMAL FINDING OF LUNG FIELD (7) Poor appetite Code(s): R63.0 - ANOREXIA (8) Superior vena cava compression syndrome Code(s): I87.1 - COMPRESSION OF VEIN 9 R PARIETAL MASS Assessment/PLAN O2 as needed No smoking BD TX PRN check cytology pleural fluid [facility] PATH PENDING DR MADRID
--- NOTE | 2018-06-10 12:45 | PN ---
Progress Note (short form) - Note Progress Note: s/p thoracentesis awaiting cytology Vital Signs Period Temp Pulse Resp BP Sys/Garcia Pulse Ox Last 24 Hr 97.5 F-98.2 F 77-105 18-20 105-127/58-72 91 cor-rrr lungs clear abd soft,nt ext trace edema CBC, BMP 06/10/18 06:16 06/10/18 06:16 Microbiology 06/05/18 11:05 Blood - Peripheral Venous Blood Culture - Final NO GROWTH AFTER 5 DAYS INCUBATION 06/05/18 11:30 Blood - Peripheral Venous Blood Culture - Final NO GROWTH AFTER 5 DAYS INCUBATION 06/07/18 10:45 Pleural Fluid Gram Stain - Final 06/07/18 10:45 Pleural Fluid Body Fluid Culture - Final NO GROWTH OF AEROBIC ORGANISMS AFTER 48 HOURS INCUBATION 06/07/18 10:45 Pleural Fluid Anaerobic Culture - Final NO ANAEROBES WERE ISOLATED 06/05/18 23:39 Urine - Urine Clean Catch Urine Culture - Final Escherichia Coli 06/07/18 10:45 Pleural Fluid MICHAEL Preparation - Preliminary 06/07/18 10:45 Pleural Fluid Fungal Culture - Preliminary a/p metastatic cancer impending svc syndrome UTI-ecoli- day #5 of 7 rocephin leukocytosis secondary to steroids please call back if needed Problem List - Problems (1) Lung mass Code(s): R91.8 - OTHER NONSPECIFIC ABNORMAL FINDING OF LUNG FIELD (2) Superior vena cava compression syndrome Code(s): I87.1 - COMPRESSION OF VEIN (3) UTI (urinary tract infection) Code(s): N39.0 - URINARY TRACT INFECTION, SITE NOT SPECIFIED
--- NOTE | 2018-06-10 18:02 | PN ---
Progress Note, Physician Chief Complaint: Visual hallucinations, constipation, shortness of breath, right shoulder pain. History of Present Illness: This 73 yr old w/m with hx of hypertension admitted via ER with acute generalized muscle weakness, anorexia, unintentional weight loss, leukocytosis with neutrophilia, UTI lung mass in the right upper lobe with mediastinal lymphadenopathy, multiple pulmonary nodules, right sided pleural effusion and masses in the liver. - Current Medication List Current Medications: Active Medications Albuterol/Ipratropium (Duoneb -) 1 amp NEB Q6H PRN PRN Reason: SHORTNESS OF BREATH Last Admin: 06/07/18 07:33 Dose: 1 amp Dexamethasone (Decadron -) 4 mg PO BID [facility] Last Admin: 06/10/18 09:57 Dose: 4 mg Docusate Sodium (Colace -) 200 mg PO HS [facility] Last Admin: 06/09/18 22:02 Dose: 200 mg Enoxaparin Sodium (Lovenox -) 70 mg SQ BID [facility] Last Admin: 06/10/18 09:57 Dose: 70 mg Hydrochlorothiazide (Hctz -) 12.5 mg PO DAILY [facility] Last Admin: 06/10/18 09:57 Dose: 12.5 mg Ceftriaxone Sodium 1 gm/ (Dextrose) 50 mls @ 100 mls/hr IVPB DAILY [facility]; Protocol Last Admin: 06/10/18 09:58 Dose: 100 mls/hr Insulin Aspart (Novolog Vial Sliding Scale -) 1 vial SQ ACHS [facility]; Protocol Last Admin: 06/10/18 12:04 Dose: 5 units Insulin Aspart (Novolog Mix 70/30 Vial) 5 units SQ DAILY@0700 [facility] Last Admin: 06/10/18 06:19 Dose: 5 units Mirtazapine (Remeron -) 15 mg PO HS [facility] Last Admin: 06/09/18 22:02 Dose: 15 mg Pantoprazole Sodium (Protonix -) 40 mg PO DAILY [facility] Last Admin: 06/10/18 10:20 Dose: 40 mg Polyethylene Glycol (Miralax (For Daily Use) -) 17 gm PO DAILY [facility] Last Admin: 06/10/18 10:39 Dose: Not Given Tamsulosin HCl (Flomax -) 0.4 mg PO DAILY@0830 [facility] Last Admin: 06/10/18 09:58 Dose: 0.4 mg Tramadol HCl (Ultram -) 50 mg PO Q8H PRN PRN Reason: PAIN LEVEL 1-5 Last Admin: 06/09/18 22:00 Dose: 50 mg - Objective Vital Signs: Vital Signs Temperature 97.8 F 06/10/18 14:46 Pulse Rate 100 H 06/10/18 14:46 Respiratory Rate 20 06/10/18 14:46 Blood Pressure 137/75 06/10/18 14:46 O2 Sat by Pulse Oximetry (%) 91 L 06/10/18 09:00 Constitutional: Yes: Well Nourished, Mild Distress Eyes: Yes: Conjunctiva Clear, EOM Intact HENT: Yes: Atraumatic, Normocephalic Neck: Yes: Supple, Trachea Midline Cardiovascular: Yes: Regular Rate and Rhythm Respiratory: Yes: Regular, CTA Bilaterally, Cough, Diminished, Dullness, On Nasal O2 Gastrointestinal: Yes: Normal Bowel Sounds, Soft, Distention ...Rectal Exam: Yes: Deferred Genitourinary: Yes: WNL Breast(s): Yes: WNL Musculoskeletal: Yes: Muscle Weakness (generalized muscle weakness) Extremities: Yes: Cool Edema: No Peripheral Pulses WNL: Yes Integumentary: Yes: Pressure Ulcer (stage I of the left hip) Neurological: Yes: Alert, Oriented ...Motor Strength: LUE (muscle weakness), LLE (muscle weakness), RUE (muscle weakness), RLE (muscle weakness) Psychiatric: Yes: Alert, Oriented Labs: CBC, BMP 06/10/18 06:16 06/10/18 06:16 INR, PTT INR 1.12 (0.83-1.09) H 06/07/18 06:41 Problem List - Problems (1) Lung mass Assessment/Plan: Supportive care, prognosis very poor. Code(s): R91.8 - OTHER NONSPECIFIC ABNORMAL FINDING OF LUNG FIELD (2) Pleural effusion Assessment/Plan: s/p right sided thoracentesis, awaiting pathology report. Code(s): J90 - PLEURAL EFFUSION, NOT ELSEWHERE CLASSIFIED (3) Superior vena cava compression syndrome Assessment/Plan: Oral Decadron and HCTZ. Code(s): I87.1 - COMPRESSION OF VEIN (4) Diabetes mellitus Assessment/Plan: Novolog 70/30 and novolog sliding scale coverage Code(s): E11.9 - TYPE 2 DIABETES MELLITUS WITHOUT COMPLICATIONS (5) Deep venous thrombosis of axillary vein Assessment/Plan: Lovenox Code(s): I82.A19 - ACUTE EMBOLISM AND THROMBOSIS OF UNSPECIFIED AXILLARY VEIN (6) Hypokalemia Assessment/Plan: IV potassium chloride Code(s): E87.6 - HYPOKALEMIA (7) Mass of right parietal lobe Assessment/Plan: Oral Decadron Code(s): G93.9 - DISORDER OF BRAIN, UNSPECIFIED Assessment/Plan Plan: lung mass in the right upper lobe with mediastinal lymphadenopathy, right pleural effusion, mass of the right parietal lobe with edema, hypokalemia, leukocytosis with neutrophilia, E. Coli UTI, right shoulder pain, Decadron, HCTZ , Ceftriaxone, IV potassium chloride, Lovenox, Novolog 70/30 plus Novolog sliding scale coverage, Tamsulosin, Ultram, discussed clinical condition of the patient with the family.
--- NOTE | 2018-06-10 18:29 | PATH ---
Cytology Non-Gynecological Report Patient Name: ZOË LUNA Med. Rec. #: [id number] /Age/Gender: 1945 (Age: 73) / M Account: [id number] Location: [facility] MED/SURG Taken: 06/07/2018 Received: 06/07/2018 Reported: 06/10/2018 Physicians: Jarrod Sánchez M.D. PHYSICIAN EMERGENCY DEPT Specimen(s) Received PLEURAL FLUID Clinical History Pleural effusion Final Diagnosis PLEURAL FLUID, THORACENTESIS: SATISFACTORY FOR EVALUATION NO MALIGNANT CELLS IDENTIFIED. MESOTHELIAL CELLS AND RARE LYMPHOCYTES PRESENT. Electronically Signed Cheyenne Cota M.D. Gross Description Approximately 50cc of yellow fluid received fixed in 50% alcohol. Two cytofunnels and one cellblock prepared.
[2018-06-10] MEDS: DOCUSATE SODIUM 100 MG CAPSULE (FP) PO SCH (21:52)
[2018-06-10] MEDS: MIRTAZAPINE 15 MG TABLET (FP) PO SCH (21:54)
--- NOTE | 2018-06-10 23:15 | PN ---
Progress Note (short form) - Note Progress Note: Patient seen and examined c/o rt. shoulder pain AFVSS Cor: RSR, No murmurs, No gallops Lungs: Clear to P&A Abd: Soft, Normal bowel sounds, No organomegaly Ext:No significant edema Skin: No rashes, Integument intact Labs/Meds reviewed A/P 73 year old smoker with right pleural effusion, right lung mass, multiple pulmonary nodules, mediastinal lymphadenopathy and 3 masses in liver Strongly suspicious for lung ca >> lymphoma. Adenopathy causing early signs of SVC. Hyponatremia--?? SIADH Generalized muscle weakness --- ? Eaton -Lambert syndrome. ? paraneoplastic s/p Thoracentesis-- cytology nondiagnostic MRI brain --hemorrhagic infarct left parietal lobe and 2 nonhemorrhagic infarcts in the same lobe. Hold lovenox Family discussion with Dr. Westbrook tomorrow r
[2018-06-11] MEDS: INSULIN SLIDING SCALE (NOVOLOG) 1 VIAL SQ SCH ×4 (06:39→22:32)
[2018-06-11] MEDS: INSULIN (NOVOLOG MIX 70/30) 100 UNITS/ML MDV SQ SCH (06:39)
[2018-06-11] MEDS: TAMSULOSIN HCL 0.4 MG CAP.ER.24H (FP) PO SCH (07:55)
[2018-06-11 08:00] LABS: EOS % 0.3 % (0-4.5); HEMATOCRIT 34.2 % (35.4-49); HEMOGLOBIN 11.3 GM/dL (11.7-16.9); MCH 26.4 pg (25.7-33.7); MCHC 33.2 g/dl (32.0-35.9); MEAN CELL VOLUME 79.7 fl (80-96); MEAN PLT VOLUME 7.7 fl (7.5-11.1); MONO % 5.5 % (3.8-10.2); NEUT % 87.2 % (42.8-82.8); PLATELET COUNT 203 K/MM3 (134-434); RBC 4.29 M/mm3 (4.00-5.60); RDW 15.6 % (11.9-15.9); WHITE BLOOD COUNT 17.7 K/mm3 (4.0-10.0)
[2018-06-11 08:38] LABS: ALBUMIN 2.4 g/dl (3.4-5.0); ANION GAP 11 MMOL/L (8-16); BLOOD UREA NITROGEN 17 mg/dL (7-18); CALCIUM 8.2 mg/dL (8.5-10.1); CHLORIDE 98 mmol/L (98-107); CO2 25 mmol/L (21-32); CREATININE 0.5 mg/dL (0.7-1.3); GLUCOSE,RANDOM 171 mg/dL (74-106); POTASSIUM 3.4 mmol/L (3.5-5.1); SGOT/AST 20 U/L (15-37); SGPT/ALT 53 U/L (12-78); SODIUM 134 mmol/L (136-145)
[2018-06-11 08:40] LABS: ALK PHOS 99 U/L (45-117); BILIRUBIN,TOTAL 0.4 mg/dL (0.2-1.0); TOT PROT 5.5 g/dl (6.4-8.2)
[2018-06-11] MEDS ORDERED: cefTRIAXone SODIUM 1 GM VIAL ONE (08:55)
[2018-06-11] MEDS ORDERED: DEXTROSE 5%-WATER - 50 ML IVPB ONE (08:55)
[2018-06-11] MEDS: CEFTRIAXONE 1 GM in DEXTROSE 5%-WATER - 50 ML IVPB SCH (09:02)
[2018-06-11] MEDS: DEXAMETHASONE 4 MG TABLET (FP) PO SCH ×2 (09:02→22:21)
[2018-06-11] MEDS: PANTOPRAZOLE 40 MG TABLET (FP) PO SCH (09:02)
[2018-06-11] MEDS: HYDROCHLOROTHIAZIDE 12.5 MG CAPSULE (FP) PO SCH (09:02)
[2018-06-11] MEDS: POLYETHYLENE GLYCOL 3350 119 GM BTL PO SCH (09:02)
[2018-06-11] MEDS: KCL 10 MEQ IVPB 10 MEQ/100 ML INFUS.BAG IVPB SCH ×3 (09:58→12:36)
[2018-06-11] MEDS: SODIUM CHLORIDE 1,000 ML IV SCH (09:58)
[2018-06-11] MEDS ORDERED: INSULIN (NOVOLOG) ASPART 100 UNITS/ML 10ML VIAL ONE ×2 (11:05→22:14)
--- NOTE | 2018-06-11 12:44 | PN ---
Progress Note, Physician History of Present Illness: pulmonary events noted transferred to telemetry secondary to mri findings Hemorragic infart left parietal lobe,pt alert, c/o sob - Current Medication List Current Medications: Active Medications Dexamethasone (Decadron -) 4 mg PO BID [facility] Last Admin: 06/11/18 09:02 Dose: 4 mg Docusate Sodium (Colace -) 200 mg PO HS [facility] Last Admin: 06/10/18 21:52 Dose: 200 mg Hydrochlorothiazide (Hctz -) 12.5 mg PO DAILY [facility] Last Admin: 06/11/18 09:02 Dose: 12.5 mg Ceftriaxone Sodium 1 gm/ (Dextrose) 50 mls @ 100 mls/hr IVPB DAILY [facility]; Protocol Last Admin: 06/11/18 09:02 Dose: 100 mls/hr Potassium Chloride (Potassium Chloride 10 Meq Premix Ivpb -) 10 meq in 100 mls @ 100 mls/hr IVPB Q60M [facility] Stop: 06/11/18 12:59 Last Admin: 06/11/18 11:07 Dose: 100 mls/hr Sodium Chloride (Normal Saline -) 1,000 mls @ 50 mls/hr IV ASDIR [facility] Last Admin: 06/11/18 09:58 Dose: 50 mls/hr Insulin Aspart (Novolog Vial Sliding Scale -) 1 vial SQ ACHS [facility]; Protocol Last Admin: 06/11/18 11:15 Dose: 5 units Insulin Aspart (Novolog Mix 70/30 Vial) 5 units SQ DAILY@0700 [facility] Last Admin: 06/11/18 06:39 Dose: 5 units Mirtazapine (Remeron -) 15 mg PO [facility] Last Admin: 06/10/18 21:54 Dose: 15 mg Pantoprazole Sodium (Protonix -) 40 mg PO DAILY [facility] Last Admin: 06/11/18 09:02 Dose: 40 mg Polyethylene Glycol (Miralax (For Daily Use) -) 17 gm PO DAILY [facility] Last Admin: 06/11/18 09:02 Dose: 17 gm Tamsulosin HCl (Flomax -) 0.4 mg PO DAILY@0830 [facility] Last Admin: 06/11/18 07:55 Dose: 0.4 mg Tramadol HCl (Ultram -) 50 mg PO Q8H PRN PRN Reason: PAIN LEVEL 1-5 Last Admin: 06/09/18 22:00 Dose: 50 mg - Objective Vital Signs: Vital Signs Temperature 97.5 F L 06/11/18 09:00 Pulse Rate 101 H 06/11/18 09:00 Respiratory Rate 20 06/11/18 09:00 Blood Pressure 141/80 06/11/18 09:00 O2 Sat by Pulse Oximetry (%) 91 L 06/11/18 09:00 Constitutional: Yes: Well Nourished, Calm Eyes: Yes: WNL HENT: Yes: WNL Cardiovascular: Yes: Regular Rate and Rhythm, S1, S2 Respiratory: Yes: Diminished Gastrointestinal: Yes: Normal Bowel Sounds, Soft Extremities: Yes: WNL Edema: No Neurological: Yes: Alert, Oriented Labs: CBC, BMP 06/11/18 06:00 06/11/18 06:00 INR, PTT INR 1.12 (0.83-1.09) H 06/07/18 06:41 Assessment/Plan Problem List - Problems (1) COPD (chronic obstructive pulmonary disease) Code(s): J44.9 - CHRONIC OBSTRUCTIVE PULMONARY DISEASE, UNSPECIFIED (2) Pleural effusion Code(s): J90 - PLEURAL EFFUSION, NOT ELSEWHERE CLASSIFIED EXUDATE BY ALBUMIN GRADIENT CRITERIA (3) Hilar mass Code(s): R91.8 - OTHER NONSPECIFIC ABNORMAL FINDING OF LUNG FIELD (4) Hyponatremia Code(s): E87.1 - HYPO-OSMOLALITY AND HYPONATREMIA (5) Liver metastasis Code(s): C78.7 - SECONDARY MALIG NEOPLASM OF LIVER AND INTRAHEPATIC BILE DUCT (6) Lung mass Code(s): R91.8 - OTHER NONSPECIFIC ABNORMAL FINDING OF LUNG FIELD (7) Poor appetite Code(s): R63.0 - ANOREXIA (8) Superior vena cava compression syndrome Code(s): I87.1 - COMPRESSION OF VEIN 9 R PARIETAL MASS Assessment/PLAN O2 as needed No smoking BD TX PRN check cytology pleural fluid [facility] Tissue diagnosis ?liver bx,lung DR MADRID
--- NOTE | 2018-06-11 12:47 | PN ---
Progress Note, Physician Chief Complaint: Visual hallucinations, cough, shortness of breath. History of Present Illness: This 73 yr old w/m with hx of hypertension admitted via ER with acute hyponatremia, acute leukocytosis with neutrophilia, lung mass in the right upper lobe with mediastinal lymphadenopathy, right pleural effusion, multiple pulmonary nodules and three masses in the liver, acute generalized muscle weakness, anorexia and unintentional weight loss. - Current Medication List Current Medications: Active Medications Dexamethasone (Decadron -) 4 mg PO BID [facility] Last Admin: 06/11/18 09:02 Dose: 4 mg Docusate Sodium (Colace -) 200 mg PO HS [facility] Last Admin: 06/10/18 21:52 Dose: 200 mg Hydrochlorothiazide (Hctz -) 12.5 mg PO DAILY [facility] Last Admin: 06/11/18 09:02 Dose: 12.5 mg Ceftriaxone Sodium 1 gm/ (Dextrose) 50 mls @ 100 mls/hr IVPB DAILY [facility]; Protocol Last Admin: 06/11/18 09:02 Dose: 100 mls/hr Potassium Chloride (Potassium Chloride 10 Meq Premix Ivpb -) 10 meq in 100 mls @ 100 mls/hr IVPB Q60M RONDA Stop: 06/11/18 12:59 Last Admin: 06/11/18 12:36 Dose: 100 mls/hr Sodium Chloride (Normal Saline -) 1,000 mls @ 50 mls/hr IV ASDIR [facility] Last Admin: 06/11/18 09:58 Dose: 50 mls/hr Insulin Aspart (Novolog Vial Sliding Scale -) 1 vial SQ ACHS [facility]; Protocol Last Admin: 06/11/18 11:15 Dose: 5 units Insulin Aspart (Novolog Mix 70/30 Vial) 5 units SQ DAILY@0700 [facility] Last Admin: 06/11/18 06:39 Dose: 5 units Mirtazapine (Remeron -) 15 mg PO HS [facility] Last Admin: 06/10/18 21:54 Dose: 15 mg Pantoprazole Sodium (Protonix -) 40 mg PO DAILY [facility] Last Admin: 06/11/18 09:02 Dose: 40 mg Polyethylene Glycol (Miralax (For Daily Use) -) 17 gm PO DAILY [facility] Last Admin: 06/11/18 09:02 Dose: 17 gm Tamsulosin HCl (Flomax -) 0.4 mg PO DAILY@0830 [facility] Last Admin: 06/11/18 07:55 Dose: 0.4 mg Tramadol HCl (Ultram -) 50 mg PO Q8H PRN PRN Reason: PAIN LEVEL 1-5 Last Admin: 06/09/18 22:00 Dose: 50 mg - Objective Vital Signs: Vital Signs Temperature 97.5 F L 06/11/18 09:00 Pulse Rate 101 H 06/11/18 09:00 Respiratory Rate 20 06/11/18 09:00 Blood Pressure 141/80 06/11/18 09:00 O2 Sat by Pulse Oximetry (%) 91 L 06/11/18 09:00 Constitutional: Yes: Well Nourished, Mild Distress Eyes: Yes: Conjunctiva Clear, EOM Intact HENT: Yes: Atraumatic, Normocephalic Neck: Yes: Supple, Trachea Midline Cardiovascular: Yes: Regular Rate and Rhythm Respiratory: Yes: Regular, CTA Bilaterally, Cough, Diminished, Dullness, On Nasal O2 Gastrointestinal: Yes: Normal Bowel Sounds, Soft ...Rectal Exam: Yes: Deferred Genitourinary: Yes: Other (intermittent urinary retention) Breast(s): Yes: WNL Musculoskeletal: Yes: Muscle Weakness (generalized muscle weakness) Extremities: Yes: Cool Edema: No Peripheral Pulses WNL: Yes Integumentary: Yes: Pressure Ulcer (stage I of the left hip) Neurological: Yes: Alert, Oriented, Unsteady Gait, Weakness ...Motor Strength: LUE (muscle weakness), LLE (muscle weakness), RUE (muscle weakness), RLE (muscle weakness) Psychiatric: Yes: Alert, Oriented Labs: CBC, BMP 06/11/18 06:00 06/11/18 06:00 INR, PTT INR 1.12 (0.83-1.09) H 06/07/18 06:41 - ....Imaging Cat Scan: Report Reviewed MRI: Report Reviewed Other: Report Reviewed (Lab data reviewed, consults read and appreciated.) Problem List - Problems (1) Lung mass Assessment/Plan: Treatment plan as per Oncologist Code(s): R91.8 - OTHER NONSPECIFIC ABNORMAL FINDING OF LUNG FIELD (2) Pleural effusion Assessment/Plan: S/P right sided thoracentesis Code(s): J90 - PLEURAL EFFUSION, NOT ELSEWHERE CLASSIFIED (3) Superior vena cava compression syndrome Assessment/Plan: Oral Decadron and HCTZ. 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
[2018-06-11 13:01] LABS: ANISOCYTOSIS 1+; MACROCYTOSIS 0; PLATELET ESTIMATE NORMAL
--- NOTE | 2018-06-11 17:00 | PN ---
Progress Note (short form) - Note Progress Note: Patient seen and examined Complains of some shortness of breath and some anterior chest pains Last Vital Signs Temp Pulse Resp BP Pulse Ox 98.2 F 98 H 20 132/73 91 L 06/11/18 12:05 06/11/18 12:05 06/11/18 12:05 06/11/18 12:05 06/11/18 09:00 HEENT: JOSÉ MIGUEL, EOM Intact Oropharynx: No thrush, No mucositis Cor: RSR, No murmurs, No gallops Lungs:diminished breath sounds bilaterally Abd: Soft, Normal bowel sounds, No organomegaly Ext:No significant edema Skin: No rashes, Integument intact CBC, BMP 06/11/18 06:00 06/11/18 06:00 INR, PTT INR 1.12 (0.83-1.09) H 06/07/18 06:41 Current Medications Generic Name Dose Route Start Last Admin Trade Name Freq PRN Reason Stop Dose Admin Albuterol/Ipratropium 1 amp 06/11/18 16:20 Duoneb - NEB Q6H PRN SHORTNESS OF BREATH Dexamethasone 4 mg 06/06/18 06:00 06/11/18 09:02 Decadron - PO 4 mg BID RONDA Administration Docusate Sodium 200 mg 06/07/18 22:00 06/10/18 21:52 Colace - PO 200 mg HS RONDA Administration Hydrochlorothiazide 12.5 mg 06/06/18 10:00 06/11/18 09:02 Hctz - PO 12.5 mg DAILY RONDA Administration Ceftriaxone Sodium 1 gm/ 50 mls @ 100 mls/hr 06/06/18 00:45 06/11/18 09:02 Dextrose IVPB 100 mls/hr DAILY RONDA Administration Protocol Sodium Chloride 1,000 mls @ 50 mls/hr 06/11/18 09:15 06/11/18 09:58 Normal Saline - IV 50 mls/hr ASDIR RONDA Administration Insulin Aspart 1 vial 06/08/18 16:30 06/11/18 11:15 Novolog Vial Sliding Scale - SQ 5 units ACHS RONDA Administration Protocol Insulin Aspart 5 units 06/10/18 07:00 06/11/18 06:39 Novolog Mix 70/30 Vial SQ 5 units DAILY@0700 RONDA Administration Mirtazapine 15 mg 06/09/18 22:00 06/10/18 21:54 Remeron - PO 15 mg HS RONDA Administration Pantoprazole Sodium 40 mg 06/08/18 16:30 06/11/18 09:02 Protonix - PO 40 mg DAILY RONDA Administration Polyethylene Glycol 17 gm 06/08/18 22:00 06/11/18 09:02 Miralax (For Daily Use) - PO 17 gm DAILY RONDA Administration Tamsulosin HCl 0.4 mg 06/06/18 18:15 06/11/18 07:55 Flomax - PO 0.4 mg DAILY@0830 RONDA Administration Tramadol HCl 50 mg 06/09/18 21:50 06/09/18 22:00 Ultram - PO 50 mg Q8H PRN Administration PAIN LEVEL 1-5 Impression: Lung Mass with lymphadenopathy , pulmonary nodules, and liver masses - presumed lung ca with mets S/p thoracentesis Hemorrhagic and non hemorrhagic infarcts of brain Weakness Remains on steroid therapy ?early SVC Plan: Met with patient , and daughters Have agreed to to proceed with biopsy for tissue
[2018-06-11] MEDS: ALBUTEROL SO4 2.5/IPRATROPIUM 0.5 INH SOL 3 ML VIAL.NEB. NEB PRN ×2 (17:39→21:30)
[2018-06-11] MEDS ORDERED: POTASSIUM CHLORIDE TABS 20 MEQ TABLET.ER (FP) PO ONE (18:00)
[2018-06-11] MEDS: DOCUSATE SODIUM 100 MG CAPSULE (FP) PO SCH (22:21)
[2018-06-11] MEDS: MIRTAZAPINE 15 MG TABLET (FP) PO SCH (22:21)
[2018-06-12] MEDS: INSULIN (NOVOLOG MIX 70/30) 100 UNITS/ML MDV SQ SCH (06:01)
[2018-06-12] MEDS: INSULIN SLIDING SCALE (NOVOLOG) 1 VIAL SQ SCH ×4 (06:01→21:53)
[2018-06-12] MEDS: ALBUTEROL SO4 2.5/IPRATROPIUM 0.5 INH SOL 3 ML VIAL.NEB. NEB PRN ×3 (06:07→14:39)
[2018-06-12 07:51] LABS: BASO % 0.1 % (0-2.0); EOS % 0.2 % (0-4.5); HEMATOCRIT 36.9 % (35.4-49); HEMOGLOBIN 11.9 GM/dL (11.7-16.9); LYMPH % 6.3 % (8-40); MCH 26.1 pg (25.7-33.7); MCHC 32.2 g/dl (32.0-35.9); MEAN PLT VOLUME 7.9 fl (7.5-11.1); MONO % 4.9 % (3.8-10.2); NEUT % 88.5 % (42.8-82.8); PLATELET COUNT 212 K/MM3 (134-434); RBC 4.55 M/mm3 (4.00-5.60); RDW 16.2 % (11.9-15.9); WHITE BLOOD COUNT 18.1 K/mm3 (4.0-10.0)
--- NOTE | 2018-06-12 08:24 | CON.NEURO ---
Consult - Past Medical History CLIENT LEADER: Yes: Vertigo Cardio/Vascular: Yes: HTN Pulmonary: Yes: Other (non-productive cough, lung mass of right upper lobe) Gastrointestinal: Yes: Other (status post surgery for duodenal ulcer) Hepatobiliary: Yes: Other (distant metastases) Infectious Disease: Yes: Other (dental caries) Psych: Yes: Depression Musculoskeletal: Yes: Other (generalized muscle weakness) Dermatology: Yes: Other (Decubitus ulcer of right buttock) - Past Surgical History Past Surgical History: Yes: Hernia Repair (right inguinal hernia repair) Additional Surgical History: Laprotomy - Alcohol/Substance Use Hx Alcohol Use: No (used to drink beer) History of Substance Use: reports: None - Smoking History Smoking history: Former smoker Have you smoked in the past 12 months: No If you are a former smoker, when did you quit?: 2013 - Social History Usual Living Arrangement: With Spouse 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 History of Recent Travel: No Home Medications - Allergies Allergies/Adverse Reactions: Allergies Allergy/AdvReac Type Severity Reaction Status Date / Time No Known Allergies Allergy Verified 06/05/18 10:19 Family Disease History - Family Disease History Family Disease History: Diabetes: Grandparent (details not available ), Father ( details not available ), Mother, Brother (spine cancer ), Daughter (x3 healthy ) Physical Exam-Neuro Vital Signs: Vital Signs Temperature 97.6 F 06/12/18 05:06 Pulse Rate 100 H 06/12/18 05:06 Respiratory Rate 20 06/12/18 05:06 Blood Pressure 147/90 06/12/18 05:06 O2 Sat by Pulse Oximetry (%) 96 06/11/18 21:00 Labs: CBC, BMP 06/12/18 06:00 06/12/18 06:00 INR, PTT INR 1.12 (0.83-1.09) H 06/07/18 06:41 Assessment/Plan CC Left parietal lobe stroke HPI 73 year old male history of Lung nodule with liver mets. Patient has been loosing weight and appetite. His general condition has detiorated. He has ct head showed here is enhancing mass on ct head, and thought to be brain mets. on mri it did not confirmed and there is hemorrhagic infarct. PMH as above Social hx, ROS, FH, reviewed in chart NKDA - Neurological Examinatin Alert and know he is at [facility] and not keeping track of dates He is sleepy eomi, pupils reactive no face asymmetry moving all extremity mri of brain reviewed Assessment- left parietal lobe hemorrhagic stroke, overall prognosis was discussed with daughter and do not wishes to do carotid ultrasound or multiple test in view of his poor prognosis and I agree with that. Plan- aspirin can be restarted 2-3 days as it has been 4 days , at least for stroke - add low dose statin and discussed with daughter she is ok - no further work up for stroke including carotid ultrasound - speech tehrapy has been done in past Thanking you so much Emilio Merlos MD
[2018-06-12 08:41] LABS: CHLORIDE 99 mmol/L (98-107); SODIUM 133 mmol/L (136-145)
[2018-06-12 08:53] LABS: ANION GAP 12 MMOL/L (8-16); BLOOD UREA NITROGEN 13 mg/dL (7-18); CALCIUM 8.3 mg/dL (8.5-10.1); CO2 22 mmol/L (21-32); CREATININE 0.5 mg/dL (0.7-1.3); GLUCOSE,RANDOM 221 mg/dL (74-106); MAGNESIUM 1.6 mg/dL (1.8-2.4)
[2018-06-12 08:54] LABS: ALBUMIN 2.6 g/dl (3.4-5.0); ALK PHOS 107 U/L (45-117); BILIRUBIN,TOTAL 0.4 mg/dL (0.2-1.0); CHOLESTEROL 173 mg/dL (50-200); HDL CHOLESTEROL 56 mg/dL (40-60); SGOT/AST 26 U/L (15-37); SGPT/ALT 58 U/L (12-78); TOT PROT 5.8 g/dl (6.4-8.2); TRIGLYCERIDES 114 mg/dL (35-160)
[2018-06-12] MEDS ORDERED: DEXTROSE 5%-WATER - 50 ML IVPB ONE (08:54)
[2018-06-12] MEDS ORDERED: cefTRIAXone SODIUM 1 GM VIAL ONE (08:54)
[2018-06-12] MEDS: CEFTRIAXONE 1 GM in DEXTROSE 5%-WATER - 50 ML IVPB SCH (09:03)
[2018-06-12] MEDS: HYDROCHLOROTHIAZIDE 12.5 MG CAPSULE (FP) PO SCH (09:09)
[2018-06-12] MEDS: TAMSULOSIN HCL 0.4 MG CAP.ER.24H (FP) PO SCH (09:09)
[2018-06-12] MEDS: PANTOPRAZOLE 40 MG TABLET (FP) PO SCH (09:09)
[2018-06-12] MEDS: DEXAMETHASONE 4 MG TABLET (FP) PO SCH ×2 (09:09→21:43)
[2018-06-12] MEDS: POLYETHYLENE GLYCOL 3350 119 GM BTL PO SCH (09:09)
[2018-06-12] MEDS: SODIUM CHLORIDE 1,000 ML IV SCH (09:10)
--- NOTE | 2018-06-12 10:29 | PN ---
Progress Note, Physician Chief Complaint: Visual hallucinations, generalized muscle weakness, cough, dyspnea, fair appetite History of Present Illness: This 73 yr od w/m with hx of hypertension admitted with acute generalized weakness, anorexia, unintentional weight loss, leukocytosis with neutrophilia, lung mass in the right upper lobe with mediastinal lymphadenopathy, multiple pulmonary nodules, DVT, UTI, acute hemorrhagic stroke of the left parietal lobe and two non-hemorrhagic strokes. - Current Medication List Current Medications: Active Medications Albuterol/Ipratropium (Duoneb -) 1 amp NEB Q6H PRN PRN Reason: SHORTNESS OF BREATH Last Admin: 06/12/18 06:07 Dose: 1 amp Atorvastatin Calcium (Lipitor -) 10 mg PO HS [facility] Dexamethasone (Decadron -) 4 mg PO BID [facility] Last Admin: 06/12/18 09:09 Dose: 4 mg Docusate Sodium (Colace -) 200 mg PO HS [facility] Last Admin: 06/11/18 22:21 Dose: 200 mg Hydrochlorothiazide (Hctz -) 12.5 mg PO DAILY [facility] Last Admin: 06/12/18 09:09 Dose: 12.5 mg Ceftriaxone Sodium 1 gm/ (Dextrose) 50 mls @ 100 mls/hr IVPB DAILY [facility]; Protocol Last Admin: 06/12/18 09:03 Dose: 100 mls/hr Sodium Chloride (Normal Saline -) 1,000 mls @ 50 mls/hr IV ASDIR [facility] Last Admin: 06/12/18 09:10 Dose: Not Given Insulin Aspart (Novolog Vial Sliding Scale -) 1 vial SQ ACHS [facility]; Protocol Last Admin: 06/12/18 06:01 Dose: Not Given Insulin Aspart (Novolog Mix 70/30 Vial) 5 units SQ DAILY@0700 [facility] Last Admin: 06/12/18 06:01 Dose: Not Given Mirtazapine (Remeron -) 15 mg PO HS [facility] Last Admin: 06/11/18 22:21 Dose: 15 mg Pantoprazole Sodium (Protonix -) 40 mg PO DAILY [facility] Last Admin: 06/12/18 09:09 Dose: 40 mg Polyethylene Glycol (Miralax (For Daily Use) -) 17 gm PO DAILY [facility] Last Admin: 06/12/18 09:09 Dose: Not Given Tamsulosin HCl (Flomax -) 0.4 mg PO DAILY@0830 [facility] Last Admin: 06/12/18 09:09 Dose: 0.4 mg Tramadol HCl (Ultram -) 50 mg PO Q8H PRN PRN Reason: PAIN LEVEL 1-5 Last Admin: 06/09/18 22:00 Dose: 50 mg - Objective Vital Signs: Vital Signs Temperature 97.6 F 06/12/18 05:06 Pulse Rate 100 H 06/12/18 05:06 Respiratory Rate 20 06/12/18 05:06 Blood Pressure 147/90 06/12/18 05:06 O2 Sat by Pulse Oximetry (%) 96 06/11/18 21:00 Constitutional: Yes: Well Nourished, Mild Distress Eyes: Yes: Conjunctiva Clear, EOM Intact HENT: Yes: Atraumatic, Normocephalic Neck: Yes: Supple, Trachea Midline Cardiovascular: Yes: Regular Rate and Rhythm Respiratory: Yes: Regular, CTA Bilaterally, Cough, Diminished, Dullness, On Nasal O2 Gastrointestinal: Yes: Normal Bowel Sounds, Soft, Distention, Other (surgery for duodenal ulcer) ...Rectal Exam: Yes: Deferred Genitourinary: Yes: WNL Breast(s): Yes: WNL Musculoskeletal: Yes: Muscle Weakness (generalized muscle weakness) Extremities: Yes: Cool Edema: No Peripheral Pulses WNL: Yes Integumentary: Yes: WNL, Pressure Ulcer (right buttock) Neurological: Yes: Alert, Oriented ...Motor Strength: LUE (muscle weakness), LLE (muscle weakness), RUE (muscle weakness), RLE (muscle weakness) Psychiatric: Yes: Alert, Oriented Labs: CBC, BMP 06/12/18 06:00 06/12/18 06:00 INR, PTT INR 1.12 (0.83-1.09) H 06/07/18 06:41 - ....Imaging Other: Report Reviewed (Lab data reviewed, neuro conult read and appreciated) Problem List - Problems (1) Lung mass Assessment/Plan: Scheduled for biopsy Code(s): R91.8 - OTHER NONSPECIFIC ABNORMAL FINDING OF LUNG FIELD (2) Pleural effusion Assessment/Plan: s/p thoracentesis, awaiting pathology report Code(s): J90 - PLEURAL EFFUSION, NOT ELSEWHERE CLASSIFIED (3) Superior vena cava compression syndrome Assessment/Plan: Oral Decadron and HCTZ. Code(s): I87.1 - COMPRESSION OF VEIN (4) Diabetes mellitus Assessment/Plan: Novolong 70/30 and Novolog sliding scale coverage Code(s): E11.9 - TYPE 2 DIABETES MELLITUS WITHOUT COMPLICATIONS (5) Deep venous thrombosis of axillary vein Assessment/Plan: Anticoagulation Code(s): I82.A19 - ACUTE EMBOLISM AND THROMBOSIS OF UNSPECIFIED AXILLARY VEIN (6) Hypokalemia Assessment/Plan: IV KCL Code(s): E87.6 - HYPOKALEMIA (7) Hypomagnesemia Assessment/Plan: Oral magnesium Code(s): E83.42 - HYPOMAGNESEMIA Assessment/Plan Plan: acute hemorrhagic stroke and two non-hemorrhagic strokes of the left parietal lobe, lung mass of the right upper lobe with mediastinal lymphadenopathy, multiple pulmonary nodules, three mass in the liver, hypokalemia, hyponatremia, hypomagnesemia, leukocytosis with neutrophilia secondary to Decadron, right pleural effusion, DVT, UTI, IV fluids, IV KCL, oral magnesium chloride, IV Ceftriaxone, discussed clinical condition of the patient with Oncologist Dr. Westbrook and family.
[2018-06-12] MEDS ORDERED: MAGNESIUM SULF 50% (8.12 MEQ/2 ML-1 GM VIAL) ONE (10:54)
[2018-06-12] MEDS ORDERED: MAGNESIUM 1GM/D5W - 1 GM/100 ML IVPB IVPB ONE (11:30)
--- NOTE | 2018-06-12 13:23 | PN ---
Progress Note, Physician History of Present Illness: PULMONARY AWAKE,C/O MILD SOB,COUGH,-CP - Current Medication List Current Medications: Active Medications Albuterol/Ipratropium (Duoneb -) 1 amp NEB Q6H PRN PRN Reason: SHORTNESS OF BREATH Last Admin: 06/12/18 11:00 Dose: 1 amp Atorvastatin Calcium (Lipitor -) 10 mg PO [facility] Dexamethasone (Decadron -) 4 mg PO BID [facility] Last Admin: 06/12/18 09:09 Dose: 4 mg Docusate Sodium (Colace -) 200 mg PO [facility] Last Admin: 06/11/18 22:21 Dose: 200 mg Hydrochlorothiazide (Hctz -) 12.5 mg PO DAILY [facility] Last Admin: 06/12/18 09:09 Dose: 12.5 mg Ceftriaxone Sodium 1 gm/ (Dextrose) 50 mls @ 100 mls/hr IVPB DAILY [facility]; Protocol Last Admin: 06/12/18 09:03 Dose: 100 mls/hr Sodium Chloride (Normal Saline -) 1,000 mls @ 50 mls/hr IV ASDIR [facility] Last Admin: 06/12/18 09:10 Dose: Not Given Insulin Aspart (Novolog Vial Sliding Scale -) 1 vial SQ ACHS [facility]; Protocol Last Admin: 06/12/18 11:31 Dose: Not Given Insulin Aspart (Novolog Mix 70/30 Vial) 5 units SQ DAILY@0700 [facility] Last Admin: 06/12/18 06:01 Dose: Not Given Mirtazapine (Remeron -) 15 mg PO [facility] Last Admin: 06/11/18 22:21 Dose: 15 mg Pantoprazole Sodium (Protonix -) 40 mg PO DAILY [facility] Last Admin: 06/12/18 09:09 Dose: 40 mg Polyethylene Glycol (Miralax (For Daily Use) -) 17 gm PO DAILY [facility] Last Admin: 06/12/18 09:09 Dose: Not Given Tamsulosin HCl (Flomax -) 0.4 mg PO DAILY@0830 [facility] Last Admin: 06/12/18 09:09 Dose: 0.4 mg Tramadol HCl (Ultram -) 50 mg PO Q8H PRN PRN Reason: PAIN LEVEL 1-5 Last Admin: 06/09/18 22:00 Dose: 50 mg - Objective Vital Signs: Vital Signs Temperature 98.7 F 06/12/18 10:00 Pulse Rate 106 H 06/12/18 10:00 Respiratory Rate 20 06/12/18 10:00 Blood Pressure 148/79 06/12/18 10:00 O2 Sat by Pulse Oximetry (%) 96 06/12/18 10:00 Constitutional: Yes: Well Nourished, Calm Eyes: Yes: WNL HENT: Yes: WNL Neck: Yes: WNL Cardiovascular: Yes: Regular Rate and Rhythm, S1 Respiratory: Yes: Rhonchi (FEW RHONCHI) Gastrointestinal: Yes: Normal Bowel Sounds, Soft Extremities: Yes: WNL Edema: No Labs: CBC, BMP 06/12/18 06:00 06/12/18 06:00 INR, PTT INR 1.12 (0.83-1.09) H 06/07/18 06:41 Assessment/Plan Problem List - Problems (1) COPD (chronic obstructive pulmonary disease) Code(s): J44.9 - CHRONIC OBSTRUCTIVE PULMONARY DISEASE, UNSPECIFIED (2) Pleural effusion Code(s): J90 - PLEURAL EFFUSION, NOT ELSEWHERE CLASSIFIED EXUDATE BY ALBUMIN GRADIENT CRITERIA (3) Hilar mass Code(s): R91.8 - OTHER NONSPECIFIC ABNORMAL FINDING OF LUNG FIELD (4) Hyponatremia Code(s): E87.1 - HYPO-OSMOLALITY AND HYPONATREMIA (5) Liver metastasis Code(s): C78.7 - SECONDARY MALIG NEOPLASM OF LIVER AND INTRAHEPATIC BILE DUCT (6) Lung mass Code(s): R91.8 - OTHER NONSPECIFIC ABNORMAL FINDING OF LUNG FIELD (7) Poor appetite Code(s): R63.0 - ANOREXIA (8) Superior vena cava compression syndrome Code(s): I87.1 - COMPRESSION OF VEIN 9. R parietal cva Assessment/PLAN O2 as needed No smoking BD TX PRN DECADRON tissue dx DR MADRID
[2018-06-12] MEDS ORDERED: INSULIN (NOVOLOG) ASPART 100 UNITS/ML 10ML VIAL ONE (16:41)
[2018-06-12] MEDS: ATORVASTATIN CA 10 MG TABLET (FP) PO SCH (21:42)
[2018-06-12] MEDS: MIRTAZAPINE 15 MG TABLET (FP) PO SCH (21:42)
[2018-06-12] MEDS: DOCUSATE SODIUM 100 MG CAPSULE (FP) PO SCH (21:43)
[2018-06-12] MEDS ORDERED: MAGNESIUM CL 64 MG TABLET.SA PO SCH (22:00)
[2018-06-13] MEDS: INSULIN SLIDING SCALE (NOVOLOG) 1 VIAL SQ SCH ×4 (06:13→22:39)
[2018-06-13] MEDS: INSULIN (NOVOLOG MIX 70/30) 100 UNITS/ML MDV SQ SCH (06:13)
[2018-06-13 06:36] LABS: BASO % 0.2 % (0-2.0); EOS % 0.3 % (0-4.5); HEMATOCRIT 36.9 % (35.4-49); HEMOGLOBIN 12.1 GM/dL (11.7-16.9); MCH 26.6 pg (25.7-33.7); MCHC 32.8 g/dl (32.0-35.9); MEAN CELL VOLUME 81.2 fl (80-96); MEAN PLT VOLUME 7.8 fl (7.5-11.1); MONO % 6.7 % (3.8-10.2); NEUT % 86.8 % (42.8-82.8); PLATELET COUNT 208 K/MM3 (134-434); RBC 4.55 M/mm3 (4.00-5.60); RDW 16.7 % (11.9-15.9)
[2018-06-13 07:28] LABS: ALBUMIN 2.7 g/dl (3.4-5.0); ANION GAP 10 MMOL/L (8-16); BLOOD UREA NITROGEN 12 mg/dL (7-18); CALCIUM 8.3 mg/dL (8.5-10.1); CHLORIDE 100 mmol/L (98-107); CO2 25 mmol/L (21-32); GLUCOSE,RANDOM 167 mg/dL (74-106); POTASSIUM 3.5 mmol/L (3.5-5.1); SGOT/AST 27 U/L (15-37); SGPT/ALT 63 U/L (12-78); SODIUM 135 mmol/L (136-145)
[2018-06-13] MEDS: ALBUTEROL SO4 2.5/IPRATROPIUM 0.5 INH SOL 3 ML VIAL.NEB. NEB PRN (07:30)
[2018-06-13 07:31] LABS: ALK PHOS 102 U/L (45-117); BILIRUBIN,TOTAL 0.4 mg/dL (0.2-1.0); CREATININE 0.6 mg/dL (0.7-1.3); TOT PROT 5.9 g/dl (6.4-8.2)
--- NOTE | 2018-06-13 08:45 | PN ---
Progress Note (short form) - Note Progress Note: Left parietal lobe stroke . 73 year old male history of Lung nodule with liver mets. Patient has been loosing weight and appetite. His general condition has detiorated. He has ct head showed here is enhancing mass on ct head, and thought to be brain mets. on mri it did not confirmed and there is hemorrhagic infarct. SUBJECTIVE: no focal neuro symptoms NEUROLOGICAL EXAMINATION: He is more aAlert and know he is at [facility] and not keeping track of dates eomi, pupils reactive no face asymmetry moving all extremity mri of brain : left parietal hemorrhagic stroke Assessment- left parietal lobe hemorrhagic stroke, overall prognosis was discussed with daughter and do not wishes to do carotid ultrasound or multiple test in view of his poor prognosis and I agree with that. Plan- aspirin can be restarted 2-3 days, if necessary - continue statin - no further work up for stroke including carotid ultrasound - speech tehrapy has been done in past - will see him as needed basis Thanking you so much Emilio Merlos MD
[2018-06-13] MEDS: HYDROCHLOROTHIAZIDE 12.5 MG CAPSULE (FP) PO SCH (09:25)
[2018-06-13] MEDS: POLYETHYLENE GLYCOL 3350 119 GM BTL PO SCH (09:25)
[2018-06-13] MEDS: TAMSULOSIN HCL 0.4 MG CAP.ER.24H (FP) PO SCH (09:25)
[2018-06-13] MEDS: DEXAMETHASONE 4 MG TABLET (FP) PO SCH ×2 (09:25→22:38)
[2018-06-13] MEDS: PANTOPRAZOLE 40 MG TABLET (FP) PO SCH (09:25)
[2018-06-13 11:17] LABS: ANISOCYTOSIS 1+; MACROCYTOSIS 0; PLATELET ESTIMATE NORMAL
[2018-06-13] MEDS: SODIUM CHLORIDE 1,000 ML IV SCH ×2 (12:12→16:25)
--- NOTE | 2018-06-13 14:40 | PN ---
Progress Note, Physician Chief Complaint: Visual hallucinations, improved appetite, generalized muscle weakness. History of Present Illness: This 73 yr old w/m with hx of hypertension admitted via ER with acute generalized muscle weakness, anorexia, unintentional weight loss, lung mass of the right upper lobe with mediastinal lymphadenopathy, multiple pulmonary nodules, right pleural effusion and three masses in the liver, acute hemorrhagic and two non-hemorrhagic strokes of the left parietal lobe, leukocytosis with neutrophilia and acute hyponatremia. - Current Medication List Current Medications: Active Medications Albuterol/Ipratropium (Duoneb -) 1 amp NEB Q6H PRN PRN Reason: SHORTNESS OF BREATH Last Admin: 06/13/18 07:30 Dose: 1 amp Atorvastatin Calcium (Lipitor -) 10 mg PO [facility] Last Admin: 06/12/18 21:42 Dose: 10 mg Dexamethasone (Decadron -) 4 mg PO BID [facility] Last Admin: 06/13/18 09:25 Dose: 4 mg Docusate Sodium (Colace -) 200 mg PO [facility] Last Admin: 06/12/18 21:43 Dose: Not Given Hydrochlorothiazide (Hctz -) 12.5 mg PO DAILY [facility] Last Admin: 06/13/18 09:25 Dose: 12.5 mg Sodium Chloride (Normal Saline -) 1,000 mls @ 50 mls/hr IV ASDIR [facility] Last Admin: 06/13/18 12:12 Dose: Not Given Insulin Aspart (Novolog Vial Sliding Scale -) 1 vial SQ [facility]; Protocol Last Admin: 06/13/18 12:12 Dose: Not Given Insulin Aspart (Novolog Mix 70/30 Vial) 5 units SQ DAILY@0700 [facility] Last Admin: 06/13/18 06:13 Dose: Not Given Mirtazapine (Remeron -) 15 mg PO [facility] Last Admin: 06/12/18 21:42 Dose: 15 mg Pantoprazole Sodium (Protonix -) 40 mg PO DAILY [facility] Last Admin: 06/13/18 09:25 Dose: 40 mg Polyethylene Glycol (Miralax (For Daily Use) -) 17 gm PO DAILY [facility] Last Admin: 06/13/18 09:25 Dose: Not Given Tamsulosin HCl (Flomax -) 0.4 mg PO DAILY@0830 [facility] Last Admin: 06/13/18 09:25 Dose: 0.4 mg - Objective Vital Signs: Vital Signs Temperature 98.8 F 06/13/18 08:49 Pulse Rate 107 H 06/13/18 13:52 Respiratory Rate 20 06/13/18 13:52 Blood Pressure 159/89 06/13/18 13:52 O2 Sat by Pulse Oximetry (%) 92 L 06/13/18 08:49 Constitutional: Yes: Well Nourished, Calm, Mild Distress Eyes: Yes: Conjunctiva Clear, EOM Intact HENT: Yes: Atraumatic, Normocephalic Neck: Yes: Trachea Midline Cardiovascular: Yes: Regular Rate and Rhythm Respiratory: Yes: CTA Bilaterally, Cough, Diminished, Dullness, On Nasal O2 Gastrointestinal: Yes: Normal Bowel Sounds, Soft, Other (s/p surgery for duodenal ulcer) ...Rectal Exam: Yes: Deferred Genitourinary: Yes: WNL Breast(s): Yes: WNL Musculoskeletal: Yes: Muscle Weakness (generalized muscle weakness) Extremities: Yes: Cool Edema: Yes Edema: LUE: 1+, RUE: 1+ Peripheral Pulses WNL: Yes Integumentary: Yes: Pressure Ulcer (stage II of the right buttock) Neurological: Yes: Alert, Oriented ...Motor Strength: LUE (muscle weakness), LLE (muscle weakness), RUE (muscle weakness), RLE (muscle weakness) Psychiatric: Yes: Alert, Oriented Labs: CBC, BMP 06/13/18 06:00 06/13/18 06:00 INR, PTT INR 1.12 (0.83-1.09) H 06/07/18 06:41 - ....Imaging Other: Report Reviewed (Lab data reviewed, Neuro consult read and appreciated) Problem List - Problems (1) Lung mass Assessment/Plan: Scheduled for tissue biopsy, treatment as per Oncologist Dr. Westbrook Code(s): R91.8 - OTHER NONSPECIFIC ABNORMAL FINDING OF LUNG FIELD (2) Superior vena cava compression syndrome Assessment/Plan: Oral Decadron and HCTZ. Code(s): I87.1 - COMPRESSION OF VEIN (3) Diabetes mellitus Assessment/Plan: Novolog 70/30 and novolog sliding scale coverage. Code(s): E11.9 - TYPE 2 DIABETES MELLITUS WITHOUT COMPLICATIONS (4) Deep venous thrombosis of axillary vein Assessment/Plan: Anticoagulation Code(s): I82.A19 - ACUTE EMBOLISM AND THROMBOSIS OF UNSPECIFIED AXILLARY VEIN (5) Hypokalemia Assessment/Plan: IV KCL Code(s): E87.6 - HYPOKALEMIA (6) Hypomagnesemia Assessment/Plan: IV magnesium Code(s): E83.42 - HYPOMAGNESEMIA (7) Acute hemorrhagic infarction of brain Assessment/Plan: Observation Code(s): I63.8 - OTHER CEREBRAL INFARCTION Assessment/Plan Plan: acute hemorrhagic and two non-hemorrhagic strokes of the left parietal lobe, lung mass of the right upper lobe with mediastinal lymphadenopathy, right pleural effusion, multiple pulmonary nodules and three masses in the liver, hypokalemia, hyponatremia, hypomagnesemia, leukocytosis with neutrophilia, IV fluids, IV KCL, IV magnesium, scheduled for biopsy, discussed clinical condition of the patient with the patient's .
[2018-06-13] MEDS ORDERED: MAGNESIUM SULF 50% (8.12 MEQ/2 ML-1 GM VIAL) IVPB ONE (15:00)
[2018-06-13] MEDS: traMADol HCL 50 MG TABLET PO PRN (17:33)
[2018-06-13] MEDS: KCL 10 MEQ IVPB 10 MEQ/100 ML INFUS.BAG IVPB SCH ×3 (17:33→22:38)
[2018-06-13 17:34] LABS: TOTAL PROTEIN,PLEURAL FLUID 2.125
[2018-06-13 17:39] LABS: GLUCOSE,PLEURAL FLUID 161.96
[2018-06-13 17:50] LABS: PLEURAL FLUID APPEARANCE CLEAR
[2018-06-13 17:51] LABS: PLEURAL FLUID COLOR YELLOW
[2018-06-13 18:24] LABS: PLEURAL FLUID RBC 893 /mm3
[2018-06-13 20:39] LABS: PLEURAL FLUID LYMPHOCYTES 7 %; PLEURAL FLUID MACROPHAGES 43 %; PLEURAL FLUID MESOTHELIAL 20 %; PLEURAL FLUID MONOCYTE 14 %; PLEURAL FLUID NEUTROPHIL 23 %
[2018-06-13] MEDS: DOCUSATE SODIUM 100 MG CAPSULE (FP) PO SCH (22:22)
[2018-06-13] MEDS: ATORVASTATIN CA 10 MG TABLET (FP) PO SCH (22:38)
[2018-06-13] MEDS: MIRTAZAPINE 15 MG TABLET (FP) PO SCH (22:38)
--- NOTE | 2018-06-13 23:17 | PN ---
Teaching Attending Note Name of Resident: Usha Morris ATTENDING PHYSICIAN STATEMENT I saw and evaluated the patient. I reviewed the resident's note and discussed the case with the resident. I agree with the resident's findings and plan as documented. Lung Mass with lymphadenopathy , pulmonary nodules, and liver masses- presumed lung ca with mets S/p thoracentesis--non diagnostic cytology Hemorrhagic and non hemorrhagic infarcts of brain Weakness Remains on steroid therapy ?early SVC Plan: For tissue diagnosis --pleural biopsy thrush --will add nystatin
[2018-06-14] MEDS: INSULIN SLIDING SCALE (NOVOLOG) 1 VIAL SQ SCH ×4 (06:06→21:12)
[2018-06-14] MEDS: INSULIN (NOVOLOG MIX 70/30) 100 UNITS/ML MDV SQ SCH (06:06)
[2018-06-14 06:43] LABS: BASO % 0.2 % (0-2.0); EOS % 0.4 % (0-4.5); HEMATOCRIT 36.7 % (35.4-49); HEMOGLOBIN 11.8 GM/dL (11.7-16.9); LYMPH % 5.5 % (8-40); MCH 26.3 pg (25.7-33.7); MCHC 32.1 g/dl (32.0-35.9); MEAN CELL VOLUME 81.9 fl (80-96); MEAN PLT VOLUME 7.7 fl (7.5-11.1); MONO % 5.7 % (3.8-10.2); NEUT % 88.2 % (42.8-82.8); PLATELET COUNT 200 K/MM3 (134-434); RBC 4.48 M/mm3 (4.00-5.60); RDW 16.4 % (11.9-15.9); WHITE BLOOD COUNT 18.8 K/mm3 (4.0-10.0)
[2018-06-14 07:24] LABS: ANION GAP 11 MMOL/L (8-16); BLOOD UREA NITROGEN 14 mg/dL (7-18); CALCIUM 8.1 mg/dL (8.5-10.1); CHLORIDE 102 mmol/L (98-107); CO2 24 mmol/L (21-32); CREATININE 0.5 mg/dL (0.7-1.3); GLUCOSE,RANDOM 169 mg/dL (74-106); POTASSIUM 3.8 mmol/L (3.5-5.1); SODIUM 137 mmol/L (136-145)
--- NOTE | 2018-06-14 07:30 | PN ---
Progress Note, Physician Chief Complaint: Muscle weakness, coughing blood-tinged sputum, fair appetite, less dyspneic today. History of Present Illness: This 73 yr old w/m with hx of HTN admitted via ER with severe generalized weakness, anorexia, abnormal weight loss, lung mass in the right upper lobe with mediastinal lymphadenopathy, multiple pulmonary nodules, right pleural effusion and three masses in the liver; acute hyponatremia and leukocytosis with neutrophilia. - Current Medication List Current Medications: Active Medications Albuterol/Ipratropium (Duoneb -) 1 amp NEB Q6H PRN PRN Reason: SHORTNESS OF BREATH Last Admin: 06/13/18 07:30 Dose: 1 amp Atorvastatin Calcium (Lipitor -) [address] [facility] Last Admin: 06/13/18 22:38 Dose: 10 mg Dexamethasone (Decadron -) 4 mg PO BID [facility] Last Admin: 06/13/18 22:38 Dose: 4 mg Docusate Sodium (Colace -) [address] [facility] Last Admin: 06/13/18 22:22 Dose: Not Given Hydrochlorothiazide (Hctz -) 12.5 mg PO DAILY [facility] Last Admin: 06/13/18 09:25 Dose: 12.5 mg Sodium Chloride (Normal Saline -) 1,000 mls @ 42 mls/hr IV ASDIR [facility] Last Admin: 06/13/18 16:25 Dose: 42 mls/hr Insulin Aspart (Novolog Vial Sliding Scale -) 1 vial SQ [facility]; Protocol Last Admin: 06/14/18 06:06 Dose: Not Given Insulin Aspart (Novolog Mix 70/30 Vial) 5 units SQ DAILY@0700 [facility] Last Admin: 06/14/18 06:06 Dose: Not Given Mirtazapine (Remeron -) [address] [facility] Last Admin: 06/13/18 22:38 Dose: 15 mg Nystatin (Nystatin Oral Suspension -) 500,000 units PO Q6HPO [facility] Pantoprazole Sodium (Protonix -) 40 mg PO DAILY [facility] Last Admin: 06/13/18 09:25 Dose: 40 mg Polyethylene Glycol (Miralax (For Daily Use) -) 17 gm PO DAILY [facility] Last Admin: 06/13/18 09:25 Dose: Not Given Tamsulosin HCl (Flomax -) 0.4 mg PO DAILY@0830 [facility] Last Admin: 06/13/18 09:25 Dose: 0.4 mg Tramadol HCl (Ultram -) 50 mg PO Q8H PRN PRN Reason: PAIN 4-6 Last Admin: 06/13/18 17:33 Dose: 50 mg - Objective Vital Signs: Vital Signs Temperature 98.1 F 06/14/18 01:41 Pulse Rate 87 06/14/18 01:41 Respiratory Rate 20 06/14/18 01:41 Blood Pressure 132/70 06/14/18 01:41 O2 Sat by Pulse Oximetry (%) 95 06/13/18 21:00 Constitutional: Yes: Well Nourished, Calm Eyes: Yes: Conjunctiva Clear, EOM Intact HENT: Yes: Atraumatic, Normocephalic, Other (oral thrush, dental caries) Neck: Yes: Supple, Trachea Midline Cardiovascular: Yes: Regular Rate and Rhythm Respiratory: Yes: Regular, CTA Bilaterally, Diminished, Dullness, On Nasal O2 Gastrointestinal: Yes: Normal Bowel Sounds, Soft ...Rectal Exam: Yes: Deferred Genitourinary: Yes: WNL Breast(s): Yes: WNL Musculoskeletal: Yes: Muscle Weakness Extremities: Yes: Cool Edema: Yes Edema: LUE: 1+, RUE: 1+ Peripheral Pulses WNL: Yes Integumentary: Yes: Pressure Ulcer (stage II of the right buttock) Neurological: Yes: Alert, Oriented, Unsteady Gait, Weakness ...Motor Strength: LUE (muscle weakness), LLE (muscle weakness), RUE (muscle weakness), RLE (muscle weakness) Psychiatric: Yes: Alert, Oriented Labs: CBC, BMP 06/14/18 06:00 INR, PTT INR 1.12 (0.83-1.09) H 06/07/18 06:41 - ....Imaging Other: Report Reviewed (Lab data reviewed) Problem List - Problems (1) Lung mass Assessment/Plan: Scheduled for biopsy Code(s): R91.8 - OTHER NONSPECIFIC ABNORMAL FINDING OF LUNG FIELD (2) Superior vena cava compression syndrome Assessment/Plan: oral Decadron and HCTZ. Code(s): I87.1 - COMPRESSION OF VEIN (3) Diabetes mellitus Assessment/Plan: Novolog 70/30 and novolog sliding scale coverage. Code(s): E11.9 - TYPE 2 DIABETES MELLITUS WITHOUT COMPLICATIONS (4) Deep venous thrombosis of axillary vein Assessment/Plan: Anticoagulation if there are no contraindications. Code(s): I82.A19 - ACUTE EMBOLISM AND THROMBOSIS OF UNSPECIFIED AXILLARY VEIN (5) Hypokalemia Assessment/Plan: IV KCL Code(s): E87.6 - HYPOKALEMIA (6) Hypomagnesemia Assessment/Plan: IV magnesium Code(s): E83.42 - HYPOMAGNESEMIA (7) Acute hemorrhagic infarction of brain Assessment/Plan: Close observation Code(s): I63.8 - OTHER CEREBRAL INFARCTION Assessment/Plan Plan: acute thrush, acute hyponatremia, acute hypokalemia, acute hypomagnesemia , lung mass in the right upper lobe with mediastinal lymphadenopathy, multiple pulmonary nodules, three masses in the liver, acute hemorrhagic and two non- hemorrhagic strokes of the left parietal lobe, leukocytosis with neutrophilia, IV fluids, IV KCL, IV magnesium, oral nystatin, scheduled for biopsy, discussed clinical condition of the patient with daughter Vera.
[2018-06-14] MEDS: TAMSULOSIN HCL 0.4 MG CAP.ER.24H (FP) PO SCH (09:04)
[2018-06-14] MEDS ORDERED: INSULIN (NOVOLOG) ASPART 100 UNITS/ML 10ML VIAL ONE (10:01)
[2018-06-14] MEDS: POLYETHYLENE GLYCOL 3350 119 GM BTL PO SCH (10:04)
[2018-06-14] MEDS: PANTOPRAZOLE 40 MG TABLET (FP) PO SCH (10:04)
[2018-06-14] MEDS: HYDROCHLOROTHIAZIDE 12.5 MG CAPSULE (FP) PO SCH (10:04)
[2018-06-14] MEDS: DEXAMETHASONE 4 MG TABLET (FP) PO SCH ×2 (10:04→21:12)
[2018-06-14] MEDS: traMADol HCL 50 MG TABLET PO PRN ×2 (10:10→21:13)
--- NOTE | 2018-06-14 13:21 | PN ---
Progress Note, Physician History of Present Illness: PULMONARY ALERT,LESS DYSPNEIC. PT S/P R LUNG BX AND INSERTION OF CHEST TUBE - Current Medication List Current Medications: Active Medications Albuterol/Ipratropium (Duoneb -) 1 amp NEB Q6H PRN PRN Reason: SHORTNESS OF BREATH Last Admin: 06/13/18 07:30 Dose: 1 amp Atorvastatin Calcium (Lipitor -) 10 mg PO [facility] Last Admin: 06/13/18 22:38 Dose: 10 mg Dexamethasone (Decadron -) 4 mg PO BID [facility] Last Admin: 06/14/18 10:04 Dose: 4 mg Docusate Sodium (Colace -) 200 mg PO [facility] Last Admin: 06/13/18 22:22 Dose: Not Given Hydrochlorothiazide (Hctz -) 12.5 mg PO DAILY [facility] Last Admin: 06/14/18 10:04 Dose: 12.5 mg Sodium Chloride (Normal Saline -) 1,000 mls @ 42 mls/hr IV ASDIR [facility] Last Admin: 06/13/18 16:25 Dose: 42 mls/hr Insulin Aspart (Novolog Vial Sliding Scale -) 1 vial SQ [facility]; Protocol Last Admin: 06/14/18 06:06 Dose: Not Given Insulin Aspart (Novolog Mix 70/30 Vial) 7 units SQ DAILY@0700 [facility] Mirtazapine (Remeron -) 15 mg PO [facility] Last Admin: 06/13/18 22:38 Dose: 15 mg Nystatin (Nystatin Oral Suspension -) 500,000 units PO Q6HPO [facility] Pantoprazole Sodium (Protonix -) 40 mg PO DAILY [facility] Last Admin: 06/14/18 10:04 Dose: 40 mg Polyethylene Glycol (Miralax (For Daily Use) -) 17 gm PO DAILY [facility] Last Admin: 06/14/18 10:04 Dose: 17 gm Tamsulosin HCl (Flomax -) 0.4 mg PO DAILY@0830 [facility] Last Admin: 06/14/18 09:04 Dose: 0.4 mg Tramadol HCl (Ultram -) 50 mg PO Q8H PRN PRN Reason: PAIN 4-6 Last Admin: 06/14/18 10:10 Dose: 50 mg - Objective Vital Signs: Vital Signs Temperature 97.9 F 06/14/18 08:59 Pulse Rate 94 H 06/14/18 12:47 Respiratory Rate 22 06/14/18 12:47 Blood Pressure 135/85 06/14/18 12:47 O2 Sat by Pulse Oximetry (%) 98 06/14/18 12:47 Constitutional: Yes: Well Nourished, Calm Eyes: Yes: WNL HENT: Yes: WNL Neck: Yes: WNL Cardiovascular: Yes: Regular Rate and Rhythm, S1, S2 Gastrointestinal: Yes: Abdomen, Obese (HELEN WHEEZES) Extremities: Yes: WNL Edema: No Labs: CBC, BMP 06/14/18 06:00 06/14/18 06:05 INR, PTT INR 1.12 (0.83-1.09) H 06/07/18 06:41 Assessment/Plan Problem List - Problems (1) COPD (chronic obstructive pulmonary disease) Code(s): J44.9 - CHRONIC OBSTRUCTIVE PULMONARY DISEASE, UNSPECIFIED (2) Pleural effusion Code(s): J90 - PLEURAL EFFUSION, NOT ELSEWHERE CLASSIFIED EXUDATE BY ALBUMIN GRADIENT CRITERIA (3) Hilar mass Code(s): R91.8 - OTHER NONSPECIFIC ABNORMAL FINDING OF LUNG FIELD (4) Hyponatremia Code(s): E87.1 - HYPO-OSMOLALITY AND HYPONATREMIA (5) Liver metastasis Code(s): C78.7 - SECONDARY MALIG NEOPLASM OF LIVER AND INTRAHEPATIC BILE DUCT (6) Lung mass Code(s): R91.8 - OTHER NONSPECIFIC ABNORMAL FINDING OF LUNG FIELD (7) Poor appetite Code(s): R63.0 - ANOREXIA (8) Superior vena cava compression syndrome Code(s): I87.1 - COMPRESSION OF VEIN 9. R parietal cva Assessment/PLAN O2 as needed No smoking BD TX PRN DECADRON check path chest x-rays DR MARDID
--- NOTE | 2018-06-14 14:22 | PN ---
Progress Note (short form) - Note Progress Note: Patient seen and examined S/p biopsy Well tolerated S/P chest tube insertion Await results.
[2018-06-14] MEDS: NYSTATIN 500,000 UNITS/5 ML SUSPENSION PO SCH ×3 (15:05→23:00)
[2018-06-14] MEDS: SODIUM CHLORIDE 1,000 ML IV SCH (15:05)
--- NOTE | 2018-06-14 16:51 | PROC ---
Procedure Note Procedure: Asked by nursing via Dr. Rodriguez to place IV access in patient's foot. Under sterile technique a 22G IV was placed into the dorsum of the patient's right foot. Blood was aspirated and the line was flushed with NS. There was no signs of infiltration and the line was functioning well. The line was secured and the patient tolerated the procedure well.
[2018-06-14] MEDS: ALBUTEROL SO4 2.5/IPRATROPIUM 0.5 INH SOL 3 ML VIAL.NEB. NEB PRN (20:51)
[2018-06-14] MEDS: ATORVASTATIN CA 10 MG TABLET (FP) PO SCH (21:12)
[2018-06-14] MEDS: MIRTAZAPINE 15 MG TABLET (FP) PO SCH (21:12)
[2018-06-14] MEDS: DOCUSATE SODIUM 100 MG CAPSULE (FP) PO SCH (21:12)
[2018-06-15] MEDS: INSULIN (NOVOLOG MIX 70/30) 100 UNITS/ML MDV SQ SCH (06:35)
[2018-06-15] MEDS: NYSTATIN 500,000 UNITS/5 ML SUSPENSION PO SCH ×4 (06:35→23:12)
[2018-06-15] MEDS: INSULIN SLIDING SCALE (NOVOLOG) 1 VIAL SQ SCH ×4 (06:35→23:12)
[2018-06-15] MEDS: traMADol HCL 50 MG TABLET PO PRN ×2 (06:37→21:44)
[2018-06-15 07:59] LABS: BASO % 0.2 % (0-2.0); EOS % 0.1 % (0-4.5); HEMOGLOBIN 11.7 GM/dL (11.7-16.9); MCH 26.5 pg (25.7-33.7); MCHC 32.6 g/dl (32.0-35.9); MEAN CELL VOLUME 81.4 fl (80-96); MEAN PLT VOLUME 8.5 fl (7.5-11.1); MONO % 3.8 % (3.8-10.2); NEUT % 90.9 % (42.8-82.8); PLATELET COUNT 170 K/MM3 (134-434); RBC 4.43 M/mm3 (4.00-5.60); RDW 16.9 % (11.9-15.9); WHITE BLOOD COUNT 17.7 K/mm3 (4.0-10.0)
[2018-06-15 08:13] LABS: ANION GAP 11 MMOL/L (8-16); BLOOD UREA NITROGEN 19 mg/dL (7-18); CALCIUM 7.8 mg/dL (8.5-10.1); CHLORIDE 101 mmol/L (98-107); CO2 24 mmol/L (21-32); CREATININE 0.6 mg/dL (0.7-1.3); GLUCOSE,RANDOM 221 mg/dL (74-106); SODIUM 136 mmol/L (136-145)
[2018-06-15 08:20] LABS: POTASSIUM 3.8 mmol/L (3.5-5.1)
[2018-06-15] MEDS: TAMSULOSIN HCL 0.4 MG CAP.ER.24H (FP) PO SCH (09:25)
--- NOTE | 2018-06-15 09:30 | PN ---
Progress Note, Physician Chief Complaint: Weakness, easy fatigability, dyspnea on mild physical exertion, fair appetite. History of Present Illness: This 73 yr old w/m with hx of HTN admitted via ER with acute unintentional weight loss, anorexia, acute hyponatremia, acute neutrophillic leukocytosis, lung mass in the right upper lobe with mediastinal lymphadenopathy, multiple pulmonary nodules, right pleural effusion, three liver masses, acute hemorrhagic and two non-hemorrhagic strokes of the left parietal lobe, acute DVT of the right axillary vein. - Current Medication List Current Medications: Active Medications Albuterol/Ipratropium (Duoneb -) 1 amp NEB Q6H PRN PRN Reason: SHORTNESS OF BREATH Last Admin: 06/14/18 20:51 Dose: 1 amp Atorvastatin Calcium (Lipitor -) 10 mg PO HS [facility] Last Admin: 06/14/18 21:12 Dose: 10 mg Dexamethasone (Decadron -) 4 mg PO BID [facility] Last Admin: 06/14/18 21:12 Dose: 4 mg Docusate Sodium (Colace -) 200 mg PO HS [facility] Last Admin: 06/14/18 21:12 Dose: 200 mg Hydrochlorothiazide (Hctz -) 12.5 mg PO DAILY [facility] Last Admin: 06/14/18 10:04 Dose: 12.5 mg Insulin Aspart (Novolog Vial Sliding Scale -) 1 vial SQ [facility]; Protocol Last Admin: 06/15/18 06:35 Dose: 10 units Insulin Aspart (Novolog Mix 70/30 Vial) 7 units SQ DAILY@0700 [facility] Last Admin: 06/15/18 06:35 Dose: 7 units Mirtazapine (Remeron -) 15 mg PO HS [facility] Last Admin: 06/14/18 21:12 Dose: 15 mg Nystatin (Nystatin Oral Suspension -) 500,000 units PO Q6HPO [facility] Last Admin: 06/15/18 06:35 Dose: 500,000 units Pantoprazole Sodium (Protonix -) 40 mg PO DAILY [facility] Last Admin: 06/14/18 10:04 Dose: 40 mg Polyethylene Glycol (Miralax (For Daily Use) -) 17 gm PO DAILY [facility] Last Admin: 06/14/18 10:04 Dose: 17 gm Tamsulosin HCl (Flomax -) 0.4 mg PO DAILY@0830 [facility] Last Admin: 06/14/18 09:04 Dose: 0.4 mg Tramadol HCl (Ultram -) 50 mg PO Q8H PRN PRN Reason: PAIN 4-6 Last Admin: 06/15/18 06:37 Dose: 50 mg - Objective Vital Signs: Vital Signs Temperature 98.1 F 06/15/18 06:00 Pulse Rate 88 06/15/18 06:00 Respiratory Rate 20 06/15/18 06:00 Blood Pressure 158/88 06/15/18 06:00 O2 Sat by Pulse Oximetry (%) 95 06/14/18 21:00 Constitutional: Yes: Well Nourished, Calm, Mild Distress Eyes: Yes: Conjunctiva Clear, EOM Intact HENT: Yes: Atraumatic, Normocephalic, Thrush Neck: Yes: Supple, Trachea Midline Cardiovascular: Yes: Regular Rate and Rhythm Respiratory: Yes: CTA Bilaterally, Accessory Muscle Use, Cough, Diminished, Dullness (right lung), On Nasal O2, Poor Air Entry (right lung) Gastrointestinal: Yes: Normal Bowel Sounds, Soft ...Rectal Exam: Yes: Deferred Genitourinary: Yes: WNL Breast(s): Yes: WNL Musculoskeletal: Yes: Muscle Weakness (generalized) Extremities: Yes: Cool Edema: Yes Edema: LUE: 3+, RUE: 3+, LLE: 1+, RLE: 1+ Peripheral Pulses WNL: Yes Integumentary: Yes: Pressure Ulcer (stage II of the right buttock) Neurological: Yes: Alert, Oriented, Unsteady Gait, Weakness ...Motor Strength: LUE (muscle weakness), LLE (muscle weakness), RUE (muscle weakness), RLE (muscle weakness) Psychiatric: Yes: Alert, Oriented Labs: CBC, BMP 06/15/18 06:30 06/15/18 06:30 INR, PTT INR 1.12 (0.83-1.09) H 06/07/18 06:41 - ....Imaging Chest X-ray: Report Reviewed Other: Report Reviewed (Lab data reviewed.) Problem List - Problems (1) Lung mass Assessment/Plan: S/p biopsy of lung tissue, awaiting pathology report. Code(s): R91.8 - OTHER NONSPECIFIC ABNORMAL FINDING OF LUNG FIELD (2) Superior vena cava compression syndrome Assessment/Plan: Oral Decadron and HCTZ. Code(s): I87.1 - COMPRESSION OF VEIN (3) Diabetes mellitus Assessment/Plan: Novolog 70/30 and novolog sliding scale coverage. Code(s): E11.9 - TYPE 2 DIABETES MELLITUS WITHOUT COMPLICATIONS (4) Deep venous thrombosis of axillary vein Assessment/Plan: Anticoagulation if there are no contraindications. Code(s): I82.A19 - ACUTE EMBOLISM AND THROMBOSIS OF UNSPECIFIED AXILLARY VEIN (5) Hypokalemia Assessment/Plan: IV potassium chloride Code(s): E87.6 - HYPOKALEMIA (6) Acute hemorrhagic infarction of brain Assessment/Plan: Close observation Code(s): I63.8 - OTHER CEREBRAL INFARCTION Assessment/Plan Plan: Lung mass of the right upper lobe with mediastinal lymphadenopathy, multiple pulmonary nodules, three liver masses, right pleural effusion, status post insertion of right chest tube for drainage of pleural fluid and resolution of right apical pneumothorax, acute hypokalemia, acute neutrophillic leukocytosis, DVT of the right axillary vein, IV fluids, IV KCL, physical therapy, s/p tissue lung biopsy, awaiting pathology report, discussed clinical condition of the patient with daughter Vera.
[2018-06-15] MEDS: KCL 10 MEQ IVPB 10 MEQ/100 ML INFUS.BAG IVPB SCH ×2 (10:24→12:00)
[2018-06-15] MEDS: DEXAMETHASONE 4 MG TABLET (FP) PO SCH ×2 (10:25→21:44)
[2018-06-15] MEDS: PANTOPRAZOLE 40 MG TABLET (FP) PO SCH (10:25)
[2018-06-15] MEDS: HYDROCHLOROTHIAZIDE 12.5 MG CAPSULE (FP) PO SCH (10:25)
[2018-06-15] MEDS: POLYETHYLENE GLYCOL 3350 119 GM BTL PO SCH (10:40)
[2018-06-15] MEDS: ALBUTEROL SO4 2.5/IPRATROPIUM 0.5 INH SOL 3 ML VIAL.NEB. NEB PRN ×2 (11:00→20:13)
--- NOTE | 2018-06-15 13:27 | PN ---
Progress Note (short form) - Note Progress Note: PULMONARY Chest tube draining serous fluid. Some shortness of breath. No fevers or chills. Vital Signs Period Temp Pulse Resp BP Sys/Garcia Pulse Ox Last 24 Hr 97.6 F-98.6 F 88-106 18-20 125-158/59-88 94-95 Gen: NAD at rest Heart: RRR Lung: scattered rhonchi Abd: soft, nontender Ext: no edema Chest tube: serous fluid, no air leak CBC, BMP 06/15/18 06:30 06/15/18 06:30 Active Medications Albuterol/Ipratropium (Duoneb -) 1 amp NEB Q6H PRN PRN Reason: SHORTNESS OF BREATH Last Admin: 06/15/18 11:00 Dose: 1 amp Atorvastatin Calcium (Lipitor -) 10 mg PO [facility] Last Admin: 06/14/18 21:12 Dose: 10 mg Dexamethasone (Decadron -) 4 mg PO BID [facility] Last Admin: 06/15/18 10:25 Dose: 4 mg Docusate Sodium (Colace -) 200 mg PO [facility] Last Admin: 06/14/18 21:12 Dose: 200 mg Hydrochlorothiazide (Hctz -) 12.5 mg PO DAILY [facility] Last Admin: 06/15/18 10:25 Dose: 12.5 mg Insulin Aspart (Novolog Vial Sliding Scale -) 1 vial SQ [facility]; Protocol Last Admin: 06/15/18 11:34 Dose: Not Given Insulin Aspart (Novolog Mix 70/30 Vial) 7 units SQ DAILY@0700 [facility] Last Admin: 06/15/18 06:35 Dose: 7 units Mirtazapine (Remeron -) 15 mg PO [facility] Last Admin: 06/14/18 21:12 Dose: 15 mg Nystatin (Nystatin Oral Suspension -) 500,000 units PO Q6HPO [facility] Last Admin: 06/15/18 12:03 Dose: 500,000 units Pantoprazole Sodium (Protonix -) 40 mg PO DAILY [facility] Last Admin: 06/15/18 10:25 Dose: 40 mg Polyethylene Glycol (Miralax (For Daily Use) -) 17 gm PO DAILY [facility] Last Admin: 06/15/18 10:40 Dose: 17 gm Tamsulosin HCl (Flomax -) 0.4 mg PO DAILY@0830 [facility] Last Admin: 06/15/18 09:25 Dose: 0.4 mg Tramadol HCl (Ultram -) 50 mg PO Q8H PRN PRN Reason: PAIN 4-6 Last Admin: 06/15/18 06:37 Dose: 50 mg A/P Lung Mass Pleural Effusion s/p CT guided needle biopsy Pneumothorax COPD Acute CVA BPH HTN DM - check CXR, if lung re-expanded can take chest tube off suction - f/u cytology, pathology - inhaled bronchodilators - O2 to keep SpO2 >90% - DVT prophylaxis
[2018-06-15] MEDS: DOCUSATE SODIUM 100 MG CAPSULE (FP) PO SCH (21:43)
[2018-06-15] MEDS: MIRTAZAPINE 15 MG TABLET (FP) PO SCH (21:44)
[2018-06-15] MEDS: ATORVASTATIN CA 10 MG TABLET (FP) PO SCH (21:44)
--- NOTE | 2018-06-15 23:20 | PN ---
Progress Note (short form) - Note Progress Note: Patient seen and examined Denies any specific complaints AFVSS Cor: RSR, No murmurs, No gallops Lungs: Clear to P&A Abd: Soft, Normal bowel sounds, No organomegaly bilateral upper extremity swelling Labs/Meds reviewed A/P 73 year old smoker with right pleural effusion, right lung mass, multiple pulmonary nodules, mediastinal lymphadenopathy and 3 masses in liver Strongly suspicious for lung ca >> lymphoma. Adenopathy causing early signs of SVC. Hyponatremia--?? SIADH Generalized muscle weakness --- ? Eaton -Lambert syndrome. ? paraneoplastic s/p Thoracentesis-- cytology nondiagnostic s/p CT guided needle biopsy/chest tube awaiting results MRI brain --hemorrhagic infarct left parietal lobe and 2 nonhemorrhagic infarcts in the same lobe. Holding lovenox r
[2018-06-16] MEDS: INSULIN (NOVOLOG MIX 70/30) 100 UNITS/ML MDV SQ SCH (06:50)
[2018-06-16] MEDS: NYSTATIN 500,000 UNITS/5 ML SUSPENSION PO SCH ×3 (06:50→17:12)
[2018-06-16] MEDS: ALBUTEROL SO4 2.5/IPRATROPIUM 0.5 INH SOL 3 ML VIAL.NEB. NEB PRN (06:50)
[2018-06-16] MEDS: INSULIN SLIDING SCALE (NOVOLOG) 1 VIAL SQ SCH ×4 (06:50→21:30)
[2018-06-16] MEDS: traMADol HCL 50 MG TABLET PO PRN ×2 (06:50→21:23)
[2018-06-16 07:55] LABS: BASO % 0.1 % (0-2.0); EOS % 0.8 % (0-4.5); HEMATOCRIT 37.1 % (35.4-49); HEMOGLOBIN 12.2 GM/dL (11.7-16.9); LYMPH % 6.3 % (8-40); MCH 26.9 pg (25.7-33.7); MEAN CELL VOLUME 81.4 fl (80-96); MEAN PLT VOLUME 7.8 fl (7.5-11.1); NEUT % 87.8 % (42.8-82.8); PLATELET COUNT 187 K/MM3 (134-434); RBC 4.56 M/mm3 (4.00-5.60); WHITE BLOOD COUNT 17.7 K/mm3 (4.0-10.0)
[2018-06-16 08:38] LABS: ALBUMIN 2.5 g/dl (3.4-5.0); ANION GAP 14 MMOL/L (8-16); BLOOD UREA NITROGEN 17 mg/dL (7-18); CALCIUM 8.2 mg/dL (8.5-10.1); CHLORIDE 102 mmol/L (98-107); CO2 22 mmol/L (21-32); CREATININE 0.5 mg/dL (0.7-1.3); GLUCOSE,RANDOM 192 mg/dL (74-106); POTASSIUM 3.6 mmol/L (3.5-5.1); SGOT/AST 20 U/L (15-37); SGPT/ALT 41 U/L (12-78); SODIUM 138 mmol/L (136-145)
[2018-06-16 08:39] LABS: ALK PHOS 93 U/L (45-117); BILIRUBIN,TOTAL 0.5 mg/dL (0.2-1.0); TOT PROT 5.4 g/dl (6.4-8.2)
[2018-06-16] MEDS: TAMSULOSIN HCL 0.4 MG CAP.ER.24H (FP) PO SCH (08:53)
[2018-06-16] MEDS: PANTOPRAZOLE 40 MG TABLET (FP) PO SCH (10:00)
[2018-06-16] MEDS: DEXAMETHASONE 4 MG TABLET (FP) PO SCH ×2 (10:00→21:23)
[2018-06-16] MEDS: HYDROCHLOROTHIAZIDE 12.5 MG CAPSULE (FP) PO SCH (10:00)
[2018-06-16] MEDS: POLYETHYLENE GLYCOL 3350 119 GM BTL PO SCH (10:05)
--- NOTE | 2018-06-16 10:52 | PN ---
Progress Note, Physician Chief Complaint: Generalized muscle weakness and dyspneic on mild physical exertion. History of Present Illness: This 73 yr old w/m with hx of hypertension admitted via ER with acute hyponatremia, abnormal weight loss, anrorexia, leukocytosis with neutrophilia, lung mass of the right upper lobe with mediastinal lymphadenopathy, multiple pulmonary nodules, right pleural effusion, three liver masses, acute hemorrhagic and two non-hemorrhagic strokes of the left parietal lobe, DVT, UTI. - Current Medication List Current Medications: Active Medications Albuterol/Ipratropium (Duoneb -) 1 amp NEB Q6H PRN PRN Reason: SHORTNESS OF BREATH Last Admin: 06/16/18 06:50 Dose: 1 amp Atorvastatin Calcium (Lipitor -) 10 mg PO [facility] Last Admin: 06/15/18 21:44 Dose: 10 mg Dexamethasone (Decadron -) 4 mg PO BID [facility] Last Admin: 06/16/18 10:00 Dose: 4 mg Docusate Sodium (Colace -) 200 mg PO [facility] Last Admin: 06/15/18 21:43 Dose: 200 mg Hydrochlorothiazide (Hctz -) 12.5 mg PO DAILY [facility] Last Admin: 06/16/18 10:00 Dose: 12.5 mg Insulin Aspart (Novolog Vial Sliding Scale -) 1 vial SQ [facility]; Protocol Last Admin: 06/16/18 06:50 Dose: 3 units Insulin Aspart (Novolog Mix 70/30 Vial) 7 units SQ DAILY@0700 [facility] Last Admin: 06/16/18 06:50 Dose: 7 units Mirtazapine (Remeron -) 15 mg PO [facility] Last Admin: 06/15/18 21:44 Dose: 15 mg Nystatin (Nystatin Oral Suspension -) 500,000 units PO Q6HPO [facility] Last Admin: 06/16/18 06:50 Dose: 500,000 units Pantoprazole Sodium (Protonix -) 40 mg PO DAILY [facility] Last Admin: 06/16/18 10:00 Dose: 40 mg Polyethylene Glycol (Miralax (For Daily Use) -) 17 gm PO DAILY [facility] Last Admin: 06/16/18 10:05 Dose: 17 gm Tamsulosin HCl (Flomax -) 0.4 mg PO DAILY@0830 [facility] Last Admin: 06/16/18 08:53 Dose: 0.4 mg Tramadol HCl (Ultram -) 50 mg PO Q8H PRN PRN Reason: PAIN 4-6 Last Admin: 06/16/18 06:50 Dose: 50 mg - Objective Vital Signs: Vital Signs Temperature 97.7 F 06/16/18 10:00 Pulse Rate 105 H 06/16/18 10:00 Respiratory Rate 20 06/16/18 10:00 Blood Pressure 153/79 06/16/18 10:00 O2 Sat by Pulse Oximetry (%) 92 L 06/15/18 20:28 Constitutional: Yes: Well Nourished, Mild Distress Eyes: Yes: Conjunctiva Clear, EOM Intact HENT: Yes: Atraumatic, Normocephalic Neck: Yes: Supple, Trachea Midline Cardiovascular: Yes: Regular Rate and Rhythm Respiratory: Yes: Regular, CTA Bilaterally, Cough (hemoptysis), Diminished ( right lung), Dullness (right lung), On Nasal O2, Tachypnea, Wheezes Gastrointestinal: Yes: Normal Bowel Sounds, Hernia (s/p right inguinal hernia repair) ...Rectal Exam: Yes: Deferred Genitourinary: Yes: WNL Breast(s): Yes: WNL Musculoskeletal: Yes: Muscle Weakness (generalized) Extremities: Yes: Cool Edema: Yes Edema: LUE: 3+, RUE: 3+, LLE: 1+, RLE: 1+ Peripheral Pulses WNL: Yes Integumentary: Yes: Pressure Ulcer (stage II of the right buttock) Neurological: Yes: Alert, Oriented, Unsteady Gait, Weakness ...Motor Strength: LUE (muscle weakness), LLE (muscle weakness), RUE (muscle weakness), RLE (muscle weakness) Psychiatric: Yes: Alert, Oriented Labs: CBC, BMP 06/16/18 06:30 06/16/18 06:30 INR, PTT INR 1.12 (0.83-1.09) H 06/07/18 06:41 - ....Imaging Other: Report Reviewed (Lab data reviewed.) Problem List - Problems (1) Lung mass Assessment/Plan: S/p needle biopsy, awaiting biopsy results. Code(s): R91.8 - OTHER NONSPECIFIC ABNORMAL FINDING OF LUNG FIELD (2) Superior vena cava compression syndrome Assessment/Plan: Oral Decadron and HCTZ. Code(s): I87.1 - COMPRESSION OF VEIN (3) Diabetes mellitus Assessment/Plan: Novolog 70/30 and Novolog sliding scale coverage. Code(s): E11.9 - TYPE 2 DIABETES MELLITUS WITHOUT COMPLICATIONS (4) Deep venous thrombosis of axillary vein Assessment/Plan: Anticoagulation if there are no contraindications. Code(s): I82.A19 - ACUTE EMBOLISM AND THROMBOSIS OF UNSPECIFIED AXILLARY VEIN (5) Hypokalemia Assessment/Plan: IV KCL Code(s): E87.6 - HYPOKALEMIA (6) Acute hemorrhagic infarction of brain Assessment/Plan: Close observation. Code(s): I63.8 - OTHER CEREBRAL INFARCTION Assessment/Plan Plan: Acute hemorrhagic stroke and two non-hemorrhagic strokes of the left parietal lobe, lung mass of the right upper lobe with mediastinal lymphadenopathy, multiple pulmonary nodules, right pleural effusion, three masses in the liver, superior vena cava syndrome, gradual swelling of all of the extremities, acute hypokalemia, persistent generalized muscle weakness, DVT. IV fluids, IV KCL, awaiting needle biopsy results, physical therapy, discussed clinical condition of the patient with daughter Tanna.
[2018-06-16] MEDS: KCL 10 MEQ IVPB 10 MEQ/100 ML INFUS.BAG IVPB SCH ×3 (11:00→14:00)
--- NOTE | 2018-06-16 14:52 | PN ---
Progress Note (short form) - Note Progress Note: PULMONARY Chest tube draining serous fluid. Some shortness of breath. No fevers or chills. Vital Signs Period Temp Pulse Resp BP Sys/Garcia Pulse Ox Last 24 Hr 97.7 F-98.2 F 100-118 20-22 130-159/75-87 92-93 Gen: NAD at rest Heart: RRR Lung: scattered rhonchi Abd: soft, nontender Ext: no edema Chest tube: serous fluid, no air leak CBC, BMP 06/16/18 06:30 06/16/18 06:30 Active Medications Albuterol/Ipratropium (Duoneb -) 1 amp NEB Q6H PRN PRN Reason: SHORTNESS OF BREATH Last Admin: 06/16/18 06:50 Dose: 1 amp Atorvastatin Calcium (Lipitor -) 10 mg PO HS [facility] Last Admin: 06/15/18 21:44 Dose: 10 mg Dexamethasone (Decadron -) 4 mg PO BID [facility] Last Admin: 06/16/18 10:00 Dose: 4 mg Docusate Sodium (Colace -) 200 mg PO [facility] Last Admin: 06/15/18 21:43 Dose: 200 mg Hydrochlorothiazide (Hctz -) 12.5 mg PO DAILY [facility] Last Admin: 06/16/18 10:00 Dose: 12.5 mg Insulin Aspart (Novolog Vial Sliding Scale -) 1 vial SQ ACHS [facility]; Protocol Insulin Aspart (Novolog Mix 70/30 Vial) 10 units SQ [facility] Mirtazapine (Remeron -) 15 mg PO HS [facility] Last Admin: 06/15/18 21:44 Dose: 15 mg Nystatin (Nystatin Oral Suspension -) 500,000 units PO Q6HPO [facility] Last Admin: 06/16/18 12:02 Dose: 500,000 units Pantoprazole Sodium (Protonix -) 40 mg PO DAILY [facility] Last Admin: 06/16/18 10:00 Dose: 40 mg Polyethylene Glycol (Miralax (For Daily Use) -) 17 gm PO DAILY [facility] Last Admin: 06/16/18 10:05 Dose: 17 gm Tamsulosin HCl (Flomax -) 0.4 mg PO DAILY@0830 [facility] Last Admin: 06/16/18 08:53 Dose: 0.4 mg Tramadol HCl (Ultram -) 50 mg PO Q8H PRN PRN Reason: PAIN 4-6 Last Admin: 06/16/18 06:50 Dose: 50 mg A/P Lung Mass likely malignant Pleural Effusion s/p CT guided needle biopsy Pneumothorax COPD Acute CVA BPH HTN DM - daily CXR, if lung re-expanded can take chest tube off suction - f/u cytology, pathology - inhaled bronchodilators - O2 to keep SpO2 >90% - DVT prophylaxis
[2018-06-16] MEDS: MIRTAZAPINE 15 MG TABLET (FP) PO SCH (21:23)
[2018-06-16] MEDS: ATORVASTATIN CA 10 MG TABLET (FP) PO SCH (21:23)
[2018-06-16] MEDS: DOCUSATE SODIUM 100 MG CAPSULE (FP) PO SCH (21:30)
[2018-06-17] MEDS: NYSTATIN 500,000 UNITS/5 ML SUSPENSION PO SCH ×4 (00:33→17:09)
[2018-06-17] MEDS: INSULIN SLIDING SCALE (NOVOLOG) 1 VIAL SQ SCH ×4 (06:18→22:06)
[2018-06-17] MEDS: INSULIN (NOVOLOG MIX 70/30) 100 UNITS/ML MDV SQ SCH (07:02)
--- NOTE | 2018-06-17 07:30 | PN ---
Progress Note, Physician Chief Complaint: Muscle weakness, dyspneic on mild physical exertion. History of Present Illness: This 73 yr old w/m with hx of hypertension admitted with acute generalized muscle weakness, anorexia, abnormal weight loss, acute hyponatremia, acute neutrophilic leukocytosis, lung mass of the right upper lobe with mediastinal lymphadenopathy, multiple pulmonary nodules, three masses in the liver, acute hemorrhagic stroke of the left parietal lobe, DVT, UTI, superior vena cava syndrome and type 2 diabetes mellitus. - Current Medication List Current Medications: Active Medications Atorvastatin Calcium (Lipitor -) 10 mg PO HS [facility] Last Admin: 06/16/18 21:23 Dose: 10 mg Dexamethasone (Decadron -) 4 mg PO BID [facility] Last Admin: 06/16/18 21:23 Dose: 4 mg Docusate Sodium (Colace -) 200 mg PO HS [facility] Last Admin: 06/16/18 21:30 Dose: Not Given Hydrochlorothiazide (Hctz -) 12.5 mg PO DAILY [facility] Last Admin: 06/16/18 10:00 Dose: 12.5 mg Insulin Aspart (Novolog Vial Sliding Scale -) 1 vial SQ [facility]; Protocol Last Admin: 06/17/18 06:18 Dose: Not Given Insulin Aspart (Novolog Mix 70/30 Vial) 10 units SQ ACBK [facility] Last Admin: 06/17/18 07:02 Dose: 10 units Mirtazapine (Remeron -) 15 mg PO HS [facility] Last Admin: 06/16/18 21:23 Dose: 15 mg Nystatin (Nystatin Oral Suspension -) 500,000 units PO Q6HPO [facility] Last Admin: 06/17/18 07:02 Dose: 500,000 units Pantoprazole Sodium (Protonix -) 40 mg PO DAILY [facility] Last Admin: 06/16/18 10:00 Dose: 40 mg Polyethylene Glycol (Miralax (For Daily Use) -) 17 gm PO DAILY [facility] Last Admin: 06/16/18 10:05 Dose: 17 gm Tamsulosin HCl (Flomax -) 0.4 mg PO DAILY@0830 [facility] Last Admin: 06/16/18 08:53 Dose: 0.4 mg Tramadol HCl (Ultram -) 50 mg PO Q8H PRN PRN Reason: PAIN 4-6 Last Admin: 06/16/18 21:23 Dose: 50 mg - Objective Vital Signs: Vital Signs Temperature 97.0 F L 06/17/18 05:29 Pulse Rate 102 H 06/17/18 05:29 Respiratory Rate 16 06/17/18 05:29 Blood Pressure 158/91 06/17/18 05:29 O2 Sat by Pulse Oximetry (%) 91 L 06/16/18 21:00 Constitutional: Yes: Well Nourished, Mild Distress Eyes: Yes: Conjunctiva Clear, EOM Intact HENT: Yes: Atraumatic, Normocephalic Neck: Yes: Trachea Midline Cardiovascular: Yes: Regular Rate and Rhythm Respiratory: Yes: CTA Bilaterally (left lung), Accessory Muscle Use, Cough, Diminished (right lung), Dullness (right lung), On Nasal O2 Gastrointestinal: Yes: Normal Bowel Sounds, Soft ...Rectal Exam: Yes: Deferred Genitourinary: Yes: WNL Breast(s): Yes: WNL Musculoskeletal: Yes: Muscle Weakness (generalized) Extremities: Yes: Cool Edema: Yes Edema: LUE: 3+, RUE: 3+, LLE: 1+, RLE: 1+ Peripheral Pulses WNL: Yes Integumentary: Yes: Pressure Ulcer (stage II of the right buttock) Neurological: Yes: Alert, Oriented, Unsteady Gait, Weakness ...Motor Strength: LUE (muscle weakness), LLE (muscle weakness), RUE (muscle weaknes), RLE (muscle weakness) Psychiatric: Yes: Alert, Oriented Labs: CBC, BMP 06/16/18 06:30 06/16/18 06:30 INR, PTT INR 1.12 (0.83-1.09) H 06/07/18 06:41 - ....Imaging Other: Report Reviewed (Lab data reviewed. Pulmonary note read and appreciated. ) Problem List - Problems (1) Lung mass Assessment/Plan: S/p needle lung biopsy, awaiting pathology report. Code(s): R91.8 - OTHER NONSPECIFIC ABNORMAL FINDING OF LUNG FIELD (2) Superior vena cava compression syndrome Assessment/Plan: Oral Decadron and HCTZ. Code(s): I87.1 - COMPRESSION OF VEIN (3) Diabetes mellitus Assessment/Plan: Novolg 70/30 and novolog sliding scale coverage. Code(s): E11.9 - TYPE 2 DIABETES MELLITUS WITHOUT COMPLICATIONS (4) Deep venous thrombosis of axillary vein Assessment/Plan: Anticoagulation if no contraindications. Code(s): I82.A19 - ACUTE EMBOLISM AND THROMBOSIS OF UNSPECIFIED AXILLARY VEIN (5) Hypokalemia Assessment/Plan: IV KCL Code(s): E87.6 - HYPOKALEMIA (6) Acute hemorrhagic infarction of brain Assessment/Plan: Close observation for any new neurologic signs. Code(s): I63.8 - OTHER CEREBRAL INFARCTION Assessment/Plan Plan: lung mass of the right upper lobe with mediastinal lymphadenopathy, bilateral DVT of axillary veins, superior vena cava syndrome, hypokalemia, neutrophillic leukocytosis, gradual worsening of dyspnea, hyponatremia, hypomagnesemia, acute hemorrhagic stroke of the left parietal lobe, type 2 diabetes mellitus. IV fluids, IV KCL, oral Decadron and HCTZ, s/p needle lung biopsy, awaiting pathology report, physical therapy.
[2018-06-17] MEDS: POLYETHYLENE GLYCOL 3350 119 GM BTL PO SCH (09:47)
[2018-06-17] MEDS: TAMSULOSIN HCL 0.4 MG CAP.ER.24H (FP) PO SCH (09:47)
[2018-06-17] MEDS: PANTOPRAZOLE 40 MG TABLET (FP) PO SCH (09:47)
[2018-06-17] MEDS: HYDROCHLOROTHIAZIDE 12.5 MG CAPSULE (FP) PO SCH (09:47)
[2018-06-17] MEDS: DEXAMETHASONE 4 MG TABLET (FP) PO SCH ×2 (09:47→22:05)
[2018-06-17] MEDS: traMADol HCL 50 MG TABLET PO PRN ×2 (09:48→18:13)
--- NOTE | 2018-06-17 11:31 | PN ---
Progress Note (short form) - Note Progress Note: PULMONARY Chest tube in place on full suction. No further drainage of fluid Some shortness of breath. No fevers or chills. CXR done this AM reveals persistent total PTX on right Gen: mildly dypsneic at rest Heart: RRR Lung: scattered rhonchi/diminished breath sounds on right/chest tube in place on suction Abd: soft, nontender Ext: B/L upper ext edema Labs/meds/notes/images/path pending A/P Lung Mass likely malignant/Liver mass Pneumothorax right s/p CT guided needle biopsy/path pending COPD Acute CVA BPH HTN DM - daily CXR, if lung re-expanded can take chest tube off suction - would ask for T-surg opinion - f/u cytology, pathology - inhaled bronchodilators - O2 to keep SpO2 >90% - DVT prophylaxis - Prognosis poor. Martine Krause MD
--- NOTE | 2018-06-17 11:43 | PN ---
Progress Note (short form) - Note Progress Note: PULMONARY ASKED TO RE-EVALUATE PATIENT WITH MORE DYSPNEA SPO2 SAT 86% ON 4 L/M NASAL O2 MINIMAL DRAINAGE NOTES FROM RIGHT CHEST BREATH SOUNDS ARE ABSENT DUE TO PERSISTENT RIGHT PTX DESPITE FULL SUCTION WILL INCREASE FIO2 TO 50% V/M WILL CALL PMD REGARDING T-SURG RAUL VARELA MD
[2018-06-17] MEDS ORDERED: INSULIN (NOVOLOG) ASPART 100 UNITS/ML 10ML VIAL ONE (12:35)
[2018-06-17 14:13] LABS: EOS % 0.2 % (0-4.5); HEMATOCRIT 38.2 % (35.4-49); HEMOGLOBIN 12.7 GM/dL (11.7-16.9); MCHC 33.1 g/dl (32.0-35.9); MEAN CELL VOLUME 81.3 fl (80-96); MEAN PLT VOLUME 7.8 fl (7.5-11.1); MONO % 4.1 % (3.8-10.2); NEUT % 92.7 % (42.8-82.8); PLATELET COUNT 203 K/MM3 (134-434); RDW 17.1 % (11.9-15.9); WHITE BLOOD COUNT 22.2 K/mm3 (4.0-10.0)
[2018-06-17 14:26] LABS: ANION GAP 10 MMOL/L (8-16); BLOOD UREA NITROGEN 15 mg/dL (7-18); CALCIUM 7.9 mg/dL (8.5-10.1); CHLORIDE 97 mmol/L (98-107); CO2 26 mmol/L (21-32); CREATININE 0.5 mg/dL (0.7-1.3); GLUCOSE,RANDOM 150 mg/dL (74-106); POTASSIUM 3.7 mmol/L (3.5-5.1); SODIUM 133 mmol/L (136-145)
--- NOTE | 2018-06-17 16:08 | CONSULT ---
Consult - text type - Consultation Consultation Note: Thoracic Surgery Brief Consult Images and history reviewed. Obstructing mass, possibly metastatic. S/P drainage with failure of lung to reexpand c/w trapped lung. Note: PA is narrowed by mass and pt had recent stroke. With thrombosis in upper veins, PE's may be causing most of his hypoxia. However, appears to be contraindication to antiocoagulation from CVA. Trapped lung will not expand with tube in place at this point. Increase suction to -40. Ultimately, may need pleur-x (if need more urgently, consider IR consult for pleur-x). Prognosis is poor. Would attempt to palliate.
[2018-06-17] MEDS: DOCUSATE SODIUM 100 MG CAPSULE (FP) PO SCH (22:00)
[2018-06-17] MEDS: ATORVASTATIN CA 10 MG TABLET (FP) PO SCH (22:05)
[2018-06-17] MEDS: MIRTAZAPINE 15 MG TABLET (FP) PO SCH (22:05)
[2018-06-18] MEDS: NYSTATIN 500,000 UNITS/5 ML SUSPENSION PO SCH ×5 (00:49→23:13)
[2018-06-18] MEDS: INSULIN SLIDING SCALE (NOVOLOG) 1 VIAL SQ SCH ×4 (06:35→23:13)
[2018-06-18] MEDS: INSULIN (NOVOLOG MIX 70/30) 100 UNITS/ML MDV SQ SCH (06:35)
[2018-06-18] MEDS ORDERED: INSULIN (NOVOLOG) ASPART 100 UNITS/ML 10ML VIAL ONE (07:41)
[2018-06-18] MEDS: HYDROCHLOROTHIAZIDE 12.5 MG CAPSULE (FP) PO SCH (09:26)
[2018-06-18] MEDS: DEXAMETHASONE 4 MG TABLET (FP) PO SCH ×2 (09:27→23:13)
[2018-06-18] MEDS: PANTOPRAZOLE 40 MG TABLET (FP) PO SCH (09:27)
[2018-06-18] MEDS: POLYETHYLENE GLYCOL 3350 119 GM BTL PO SCH (09:27)
[2018-06-18] MEDS: TAMSULOSIN HCL 0.4 MG CAP.ER.24H (FP) PO SCH (09:27)
--- NOTE | 2018-06-18 11:40 | PN ---
Progress Note, Physician Chief Complaint: Shortness of breath, generalized muscle weakness. History of Present Illness: This 73 yr old w/m with hx of hypertension admitted via ER with acute generalized muscle weakness, anorexia, abnormal weight loss, acute hyponatremia , acute neutrophillic leukocytosis, lung mass in the right upper lobe with mediastinal lymphadenopathy, pulmonary nodules, liver masses, acute hemorrhagic stroke of the left parietal lobe, DVT, UTI, superior vena cava syndrome. - Current Medication List Current Medications: Active Medications Atorvastatin Calcium (Lipitor -) 10 mg PO HS [facility] Last Admin: 06/17/18 22:05 Dose: 10 mg Dexamethasone (Decadron -) 4 mg PO BID [facility] Last Admin: 06/18/18 09:27 Dose: 4 mg Docusate Sodium (Colace -) 200 mg PO HS [facility] Last Admin: 06/17/18 22:00 Dose: Not Given Hydrochlorothiazide (Hctz -) 12.5 mg PO DAILY [facility] Last Admin: 06/18/18 09:26 Dose: 12.5 mg Insulin Aspart (Novolog Vial Sliding Scale -) 1 vial SQ [facility]; Protocol Last Admin: 06/18/18 06:35 Dose: Not Given Insulin Aspart (Novolog Mix 70/30 Vial) 10 units SQ ACBK [facility] Last Admin: 06/18/18 06:35 Dose: 10 units Mirtazapine (Remeron -) 15 mg PO HS [facility] Last Admin: 06/17/18 22:05 Dose: 15 mg Nystatin (Nystatin Oral Suspension -) 500,000 units PO Q6HPO [facility] Last Admin: 06/18/18 06:00 Dose: 500,000 units Pantoprazole Sodium (Protonix -) 40 mg PO DAILY [facility] Last Admin: 06/18/18 09:27 Dose: 40 mg Polyethylene Glycol (Miralax (For Daily Use) -) 17 gm PO DAILY [facility] Last Admin: 06/18/18 09:27 Dose: Not Given Tamsulosin HCl (Flomax -) 0.4 mg PO DAILY@0830 [facility] Last Admin: 06/18/18 09:27 Dose: 0.4 mg Tramadol HCl (Ultram -) 50 mg PO Q8H PRN PRN Reason: PAIN 4-6 Last Admin: 06/17/18 18:13 Dose: 50 mg - Objective Vital Signs: Vital Signs Temperature 97.7 F 06/18/18 07:36 Pulse Rate 102 H 09/04/18 07:36 Respiratory Rate 20 06/18/18 07:36 Blood Pressure 152/91 06/18/18 07:36 O2 Sat by Pulse Oximetry (%) 92 L 06/17/18 21:00 Constitutional: Yes: Well Nourished, Moderate Distress Eyes: Yes: Conjunctiva Clear, EOM Intact HENT: Yes: Atraumatic, Normocephalic Neck: Yes: Supple, Trachea Midline Cardiovascular: Yes: Regular Rate and Rhythm Respiratory: Yes: CTA Bilaterally (left lung), Accessory Muscle Use (bilateral) , Cough, Diminished (right lung), Dullness (right lung) Gastrointestinal: Yes: Normal Bowel Sounds, Soft ...Rectal Exam: Yes: Deferred Genitourinary: Yes: WNL Breast(s): Yes: WNL Musculoskeletal: Yes: Muscle Weakness (generalized) Extremities: Yes: Cool Edema: Yes Edema: LUE: 3+, RUE: 3+, LLE: 1+, RLE: 1+ Peripheral Pulses WNL: Yes Integumentary: Yes: Pressure Ulcer (stage II of the right buttock.) Neurological: Yes: Alert, Oriented, Unsteady Gait, Weakness ...Motor Strength: LUE (diminished), LLE (diminished), RUE (diminished), RLE ( diminished) Psychiatric: Yes: Alert, Oriented Labs: CBC, BMP 06/17/18 13:55 06/17/18 13:55 INR, PTT INR 1.12 (0.83-1.09) H 06/07/18 06:41 - ....Imaging Other: Report Reviewed (Lab data reviewed. Thoracic surgeon noted read and appreciated.) Problem List - Problems (1) Lung mass Assessment/Plan: Supportive care. Code(s): R91.8 - OTHER NONSPECIFIC ABNORMAL FINDING OF LUNG FIELD (2) Superior vena cava compression syndrome Assessment/Plan: Oral Decadron and HCTZ. Code(s): I87.1 - COMPRESSION OF VEIN (3) Diabetes mellitus Assessment/Plan: Novolog 70/30 and novolog sliding scale coverage. Code(s): E11.9 - TYPE 2 DIABETES MELLITUS WITHOUT COMPLICATIONS (4) Deep venous thrombosis of axillary vein Assessment/Plan: Anticoagulation if no contraindications. Code(s): I82.A19 - ACUTE EMBOLISM AND THROMBOSIS OF UNSPECIFIED AXILLARY VEIN (5) Hypokalemia Assessment/Plan: IV KCL Code(s): E87.6 - HYPOKALEMIA (6) Acute hemorrhagic infarction of brain Assessment/Plan: Close observation. Code(s): I63.8 - OTHER CEREBRAL INFARCTION Assessment/Plan Plan: acute hypokalemia, acute hyponatremia, acute neutrophillic leukocytosis, lung mass of the right upper lobe with distant metastases, acute hemorrhagic stroke of the left parietal lobe, s/p needle biopsy, pathology report pending. Placed on 100% NRB O2 sat 92%. IV fluids, IV KCL, palliative care, discussed clinical condition of the patient with patient's son and daughter Vera. Prognosis very poor.
--- NOTE | 2018-06-18 13:14 | PN ---
Progress Note, Physician History of Present Illness: PULMONARY AWAKE,LESS DYSPNEIC ON 100% NRM - Current Medication List Current Medications: Active Medications Atorvastatin Calcium (Lipitor -) 10 mg PO HS [facility] Last Admin: 06/17/18 22:05 Dose: 10 mg Dexamethasone (Decadron -) 4 mg PO BID [facility] Last Admin: 06/18/18 09:27 Dose: 4 mg Docusate Sodium (Colace -) 200 mg PO HS [facility] Last Admin: 06/17/18 22:00 Dose: Not Given Hydrochlorothiazide (Hctz -) 12.5 mg PO DAILY [facility] Last Admin: 06/18/18 09:26 Dose: 12.5 mg Potassium Chloride (Potassium Chloride 10 Meq Premix Ivpb -) 10 meq in 100 mls @ 100 mls/hr IVPB Q60M [facility] Stop: 06/18/18 14:59 Insulin Aspart (Novolog Vial Sliding Scale -) 1 vial SQ ACHS [facility]; Protocol Last Admin: 06/18/18 12:08 Dose: Not Given Insulin Aspart (Novolog Mix 70/30 Vial) 10 units SQ ACBK [facility] Last Admin: 06/18/18 06:35 Dose: 10 units Mirtazapine (Remeron -) 15 mg PO HS [facility] Last Admin: 06/17/18 22:05 Dose: 15 mg Nystatin (Nystatin Oral Suspension -) 500,000 units PO Q6HPO [facility] Last Admin: 06/18/18 06:00 Dose: 500,000 units Pantoprazole Sodium (Protonix -) 40 mg PO DAILY [facility] Last Admin: 06/18/18 09:27 Dose: 40 mg Polyethylene Glycol (Miralax (For Daily Use) -) 17 gm PO DAILY [facility] Last Admin: 06/18/18 09:27 Dose: Not Given Tamsulosin HCl (Flomax -) 0.4 mg PO DAILY@0830 [facility] Last Admin: 06/18/18 09:27 Dose: 0.4 mg Tramadol HCl (Ultram -) 50 mg PO Q8H PRN PRN Reason: PAIN 4-6 Last Admin: 06/17/18 18:13 Dose: 50 mg - Objective Vital Signs: Vital Signs Temperature 97.7 F 06/18/18 07:36 Pulse Rate 102 H 06/18/18 07:36 Respiratory Rate 20 06/18/18 07:36 Blood Pressure 152/91 06/18/18 07:36 O2 Sat by Pulse Oximetry (%) 92 L 06/17/18 21:00 Constitutional: Yes: Well Nourished, Calm Eyes: Yes: WNL HENT: Yes: WNL Neck: Yes: WNL Cardiovascular: Yes: Regular Rate and Rhythm, S1, S2 Respiratory: Yes: Rhonchi (SCATTERED RHONCHI) Gastrointestinal: Yes: Normal Bowel Sounds, Soft Extremities: Yes: WNL Edema: No Labs: CBC, BMP Assessment/Plan Problem List - Problems (1) COPD (chronic obstructive pulmonary disease) Code(s): J44.9 - CHRONIC OBSTRUCTIVE PULMONARY DISEASE, UNSPECIFIED (2) Pleural effusion Code(s): J90 - PLEURAL EFFUSION, NOT ELSEWHERE CLASSIFIED EXUDATE BY ALBUMIN GRADIENT CRITERIA (3) Hilar mass Code(s): R91.8 - OTHER NONSPECIFIC ABNORMAL FINDING OF LUNG FIELD (4) Hyponatremia Code(s): E87.1 - HYPO-OSMOLALITY AND HYPONATREMIA (5) Liver metastasis Code(s): C78.7 - SECONDARY MALIG NEOPLASM OF LIVER AND INTRAHEPATIC BILE DUCT (6) Lung mass Code(s): R91.8 - OTHER NONSPECIFIC ABNORMAL FINDING OF LUNG FIELD (7) Poor appetite Code(s): R63.0 - ANOREXIA (8) Superior vena cava compression syndrome Code(s): I87.1 - COMPRESSION OF VEIN 9. R parietal cva 10 R PTX TRAPPED LUNG Assessment/PLAN O2 as needed No smoking BD TX PRN DECADRON check path chest x-rays pallitive care prognosis poor DR MADRID
[2018-06-18] MEDS: KCL 10 MEQ IVPB 10 MEQ/100 ML INFUS.BAG IVPB SCH ×2 (13:25→14:34)
[2018-06-18] MEDS: traMADol HCL 50 MG TABLET PO PRN (14:57)
--- NOTE | 2018-06-18 15:39 | PATH ---
Surgical Pathology Report Patient Name: ZOË LUNA [facility]. Rec. #: [id number] /Age/Gender: 1945 (Age: 73) / M Account: [id number] Location: 4 PEDS/ADOL Taken: 06/14/2018 Received: 06/14/2018 Reported: 06/18/2018 Physicians: Marek Moyer M.D. Norman Rosen, M.D. Smitha Mellacheruvu, M.D. Richard Wu, M.D. Specimen(s) Received RIGHT LUNG BIOPSY Clinical History 73-year-old male with large right lung mass and pleural effusion Final Diagnosis LUNG, RIGHT, CT GUIDED CORE BIOPSY: ABUNDANT NECROTIC MATERIAL. NO VIABLE LUNG PARENCHYMA OR TUMOR IDENTIFIED. SEE COMMENT. Comment: Findings are insufficient for definitive diagnosis. Suggest clinical/radiological relation. Findings discussed with Dr. Dang. See concurrent cytology ([id number]). Electronically Signed Shannon Crocker M.D. Gross Description Received in formalin labeled "right lung," is a 0.5 x 0.4 x 0.1 cm aggregate of mcghee soft tissue fragments. The formalin is filtered and the specimen is entirely submitted in one cassette. /06/14/2018 saudi06/14/2018
--- NOTE | 2018-06-18 15:56 | PATH ---
Cytology Non-Gynecological Report Patient Name: ZOË LUNA [facility]. Rec. #: [id number] /Age/Gender: 1945 (Age: 73) / M Account: [id number] Location: [facility] PEDS/ADOL Taken: 06/13/2018 Received: 06/14/2018 Reported: 06/18/2018 Physicians: Marek Moyer M.D. Specimen(s) Received RIGHT LUNG DRAIN Clinical History Lung mass Final Diagnosis LUNG, RIGHT, DRAIN, FOR CYTOLOGY: SATISFACTORY FOR EVALUATION NO MALIGNANT CELLS IDENTIFIED. MESOTHELIAL CELLS, FEW NEUTROPHILS AND FEW LYMPHOCYTES PRESENT. Comment: See concurrent biopsy ([id number]). Electronically Signed Shannon Crocker M.D. Gross Description Approximately 50 cc of yellow fluid received fixed in 50% alcohol. One cytofunnel and one cellblock prepared.
[2018-06-18] MEDS: POTASSIUM CHLORIDE 40 MEQ in SODIUM CHLORIDE 1,000 ML IVPB SCH (17:28)
[2018-06-18] MEDS ORDERED: PT OWN MED DRAWER 7, Y5N ONE (18:32)
[2018-06-18] MEDS: DOCUSATE SODIUM 100 MG CAPSULE (FP) PO SCH (23:12)
[2018-06-18] MEDS: MIRTAZAPINE 15 MG TABLET (FP) PO SCH (23:13)
[2018-06-18] MEDS: ATORVASTATIN CA 10 MG TABLET (FP) PO SCH (23:14)
[2018-06-19] MEDS: INSULIN SLIDING SCALE (NOVOLOG) 1 VIAL SQ SCH ×4 (06:44→21:07)
[2018-06-19] MEDS: INSULIN (NOVOLOG MIX 70/30) 100 UNITS/ML MDV SQ SCH (06:44)
[2018-06-19] MEDS: NYSTATIN 500,000 UNITS/5 ML SUSPENSION PO SCH ×4 (06:46→23:38)
--- NOTE | 2018-06-19 07:44 | PN ---
Progress Note (short form) - Note Progress Note: Patient seen and examined Complains of some headache Some SOB Anorexia Last Vital Signs Temp Pulse Resp BP Pulse Ox 97.8 F 86 20 145/81 96 06/19/18 06:00 06/19/18 06:00 06/19/18 06:00 06/19/18 06:00 06/18/18 21:00 HEENT: JOSÉ MIGUEL, EOM Intact Oropharynx: No thrush, No mucositis Neck: Supple Cor: RSR, No murmurs, No gallops Lungs: diminished breath sounds ; chest tube drainage ; >150 cc cc put out past shift overnight Abd: Soft, Normal bowel sounds, No organomegaly Ext:No significant edema, SCD Skin: No rashes, Integument intact Current Medications Generic Name Dose Route Start Last Admin Trade Name Freq PRN Reason Stop Dose Admin Atorvastatin Calcium 10 mg 06/12/18 22:00 06/18/18 23:14 Lipitor - PO 10 mg HS [facility] Administration Dexamethasone 4 mg 06/06/18 06:00 06/18/18 23:13 Decadron - PO 4 mg BID [facility] Administration Docusate Sodium 200 mg 06/07/18 22:00 06/18/18 23:12 Colace - PO 200 mg HS [facility] Administration Hydrochlorothiazide 12.5 mg 06/06/18 10:00 06/18/18 09:26 Hctz - PO 12.5 mg DAILY [facility] Administration Potassium Chloride 40 meq/ 1,020 mls @ 50 mls/hr 06/18/18 16:30 06/18/18 17: 28 Sodium Chloride IVPB 50 mls/hr Q20H [facility] Administration Insulin Aspart 1 vial 06/16/18 11:20 06/19/18 06:44 Novolog Vial Sliding Scale - SQ Not Given ACHS [facility] Protocol Insulin Aspart 10 units 06/17/18 07:00 06/19/18 06:44 Novolog Mix 70/30 Vial SQ 10 units ACBK [facility] Administration Mirtazapine 15 mg 06/09/18 22:00 06/18/18 23:13 Remeron - PO 15 mg HS [facility] Administration Nystatin 500,000 units 06/14/18 12:00 06/19/18 06:46 Nystatin Oral Suspension - PO Not Given Q6HPO [facility] Pantoprazole Sodium 40 mg 06/08/18 16:30 06/18/18 09:27 Protonix - PO 40 mg DAILY [facility] Administration Polyethylene Glycol 17 gm 06/08/18 22:00 06/18/18 09:27 Miralax (For Daily Use) - PO Not Given DAILY [facility] Tamsulosin HCl 0.4 mg 06/06/18 18:15 06/18/18 09:27 Flomax - PO 0.4 mg DAILY@0830 [facility] Administration Tramadol HCl 50 mg 06/13/18 17:24 06/18/18 14:57 Ultram - PO 50 mg Q8H PRN Administration PAIN 4-6 Impression: Lung mass Early SVC Liver masses Pleural effusion Cytology negative Lung biopsy necrotic tissue Spoke with IR- for sono of liver and anticipate liver biopsy Would discontinue HCTZ and decrease decadron and taper off
[2018-06-19 08:11] LABS: BASO % 0.1 % (0-2.0); EOS % 1.5 % (0-4.5); HEMATOCRIT 33.9 % (35.4-49); HEMOGLOBIN 11.1 GM/dL (11.7-16.9); LYMPH % 6.3 % (8-40); MCH 26.5 pg (25.7-33.7); MCHC 32.7 g/dl (32.0-35.9); MEAN CELL VOLUME 81.1 fl (80-96); MEAN PLT VOLUME 7.7 fl (7.5-11.1); MONO % 5.7 % (3.8-10.2); NEUT % 86.4 % (42.8-82.8); PLATELET COUNT 164 K/MM3 (134-434); RBC 4.18 M/mm3 (4.00-5.60); RDW 16.8 % (11.9-15.9)
[2018-06-19 08:19] LABS: ANION GAP 8 MMOL/L (8-16); BLOOD UREA NITROGEN 16 mg/dL (7-18); CALCIUM 7.7 mg/dL (8.5-10.1); CHLORIDE 100 mmol/L (98-107); CO2 28 mmol/L (21-32); CREATININE 0.5 mg/dL (0.7-1.3); GLUCOSE,RANDOM 137 mg/dL (74-106); MAGNESIUM 1.7 mg/dL (1.8-2.4); POTASSIUM 3.9 mmol/L (3.5-5.1); SODIUM 136 mmol/L (136-145)
[2018-06-19] MEDS: PANTOPRAZOLE 40 MG TABLET (FP) PO SCH (09:00)
[2018-06-19] MEDS: DEXAMETHASONE 4 MG TABLET (FP) PO SCH (09:00)
[2018-06-19] MEDS: traMADol HCL 50 MG TABLET PO PRN ×2 (09:00→21:09)
[2018-06-19] MEDS: POLYETHYLENE GLYCOL 3350 119 GM BTL PO SCH (09:00)
[2018-06-19] MEDS: TAMSULOSIN HCL 0.4 MG CAP.ER.24H (FP) PO SCH (09:00)
--- NOTE | 2018-06-19 11:54 | PN ---
Progress Note, Physician Chief Complaint: Dyspnea at rest, difficulty in swallowing, generalized weakness. History of Present Illness: This 73 yr old w/m with hx of hypertension admitted via ER with abnormal weight loss, acute generalized weakness, anorexia, lung mass of the right upper lobe with distant metastases, acute hemorrhgic stroke of the left parietal lobe, acute hypokalemia, acute hyponatremia, acute hypomagnesemia, acute neutrophillic leukocytosis, DVT, UTI and superior vena cava syndrome. - Current Medication List Current Medications: Active Medications Atorvastatin Calcium (Lipitor -) 10 mg PO HS [facility] Last Admin: 06/18/18 23:14 Dose: 10 mg Dexamethasone (Decadron -) 4 mg PO DAILY [facility] Last Admin: 06/19/18 09:00 Dose: 4 mg Docusate Sodium (Colace -) 200 mg PO HS [facility] Last Admin: 06/18/18 23:12 Dose: 200 mg Potassium Chloride 40 meq/ (Sodium Chloride) 1,020 mls @ 50 mls/hr IVPB Q20H [facility] Last Admin: 06/18/18 17:28 Dose: 50 mls/hr Insulin Aspart (Novolog Vial Sliding Scale -) 1 vial SQ ACHS [facility]; Protocol Last Admin: 06/19/18 06:44 Dose: Not Given Insulin Aspart (Novolog Mix 70/30 Vial) 10 units SQ ACBK [facility] Last Admin: 06/19/18 06:44 Dose: 10 units Mirtazapine (Remeron -) 15 mg PO HS [facility] Last Admin: 06/18/18 23:13 Dose: 15 mg Nystatin (Nystatin Oral Suspension -) 500,000 units PO Q6HPO [facility] Last Admin: 06/19/18 06:46 Dose: Not Given Pantoprazole Sodium (Protonix -) 40 mg PO DAILY [facility] Last Admin: 06/19/18 09:00 Dose: 40 mg Polyethylene Glycol (Miralax (For Daily Use) -) 17 gm PO DAILY [facility] Last Admin: 06/19/18 09:00 Dose: 17 gm Tamsulosin HCl (Flomax -) 0.4 mg PO DAILY@0830 [facility] Last Admin: 06/19/18 09:00 Dose: 0.4 mg Tramadol HCl (Ultram -) 50 mg PO Q8H PRN PRN Reason: PAIN 4-6 Last Admin: 06/19/18 09:00 Dose: 50 mg - Objective Vital Signs: Vital Signs Temperature 98.0 F 06/19/18 09:24 Pulse Rate 76 06/19/18 09:24 Respiratory Rate 20 06/19/18 09:24 Blood Pressure 143/79 06/19/18 09:24 O2 Sat by Pulse Oximetry (%) 96 06/18/18 21:00 Constitutional: Yes: Calm, Mild Distress, Other (poor dental hygiene) Eyes: Yes: Conjunctiva Clear, EOM Intact HENT: Yes: Atraumatic, Normocephalic Neck: Yes: Supple, Trachea Midline Cardiovascular: Yes: Regular Rate and Rhythm Respiratory: Yes: CTA Bilaterally (left lung), Cough, Diminished (right lung), Dullness (right lung), On Venti-Mask Gastrointestinal: Yes: Normal Bowel Sounds, Soft ...Rectal Exam: Yes: Deferred Genitourinary: Yes: WNL Breast(s): Yes: WNL Musculoskeletal: Yes: Muscle Weakness (generalized) Extremities: Yes: Cool Edema: Yes Edema: LUE: 3+, RUE: 3+, LLE: 1+, RLE: 1+ Peripheral Pulses WNL: Yes Integumentary: Yes: Pressure Ulcer (stage II of the right buttock) Neurological: Yes: Alert, Oriented, Unsteady Gait, Weakness Psychiatric: Yes: Alert, Oriented Labs: CBC, BMP 06/19/18 07:00 06/19/18 07:00 INR, PTT INR 1.12 (0.83-1.09) H 06/07/18 06:41 - ....Imaging Other: Report Reviewed (Lab data reviewed. Oncology and Pulmonary notes read and appreciated.) Problem List - Problems (1) Lung mass Assessment/Plan: Supportive care, 100% oxygen via venti- mask. Code(s): R91.8 - OTHER NONSPECIFIC ABNORMAL FINDING OF LUNG FIELD (2) Diabetes mellitus Assessment/Plan: Novolog 70/30 and Novolog sliding scale coverage. Code(s): E11.9 - TYPE 2 DIABETES MELLITUS WITHOUT COMPLICATIONS (3) Deep venous thrombosis of axillary vein Assessment/Plan: Anticoagulation if no contraindications. Code(s): I82.A19 - ACUTE EMBOLISM AND THROMBOSIS OF UNSPECIFIED AXILLARY VEIN (4) Hypokalemia Assessment/Plan: IV KCL Code(s): E87.6 - HYPOKALEMIA (5) Acute hemorrhagic infarction of brain Assessment/Plan: Close observation. Code(s): I63.8 - OTHER CEREBRAL INFARCTION Assessment/Plan Plan: Acute dyspnea at rest, acute difficulty in swallowing, acute hypokalemia and hyponatremia, hypomagnesemia, neutophillic leukocytosis, lung mass of the right upper lobe with distant metastases, acute hemorrhagic stroke of the left parietal lobe. IV fluids with KCL, IV magnesium, scheduled for liver biopsy today, discontinue HCTZ, taper oral Decadron, on 100% oxygen via venti-mask NRB with SaO2 95%, clinical condition very poor, discussed clinical condition of the patient with his , aware of the very poor prognosis.
[2018-06-19] MEDS ORDERED: MAGNESIUM SULF 50% (8.12 MEQ/2 ML-1 GM VIAL) IVPB ONE (12:15)
--- NOTE | 2018-06-19 15:26 | EKG ---
Test Reason : Blood Pressure : / mmHG Vent. Rate : 127 BPM Atrial Rate : 127 BPM P-R Int : 128 ms QRS Dur : 072 ms QT Int : 298 ms P-R-T Axes : 056 050 058 degrees QTc Int : 433 ms SINUS TACHYCARDIA LOW VOLTAGE QRS BORDERLINE ECG WHEN COMPARED WITH ECG OF 05-JUN-2018 10:35, NO SIGNIFICANT CHANGE WAS FOUND Confirmed by KAILA LAI MD ([id number]) on 06/19/2018 3:25:57 PM Referred By: An Leone Confirmed By:KAILA LAI MD
[2018-06-19] MEDS: POTASSIUM CHLORIDE 40 MEQ in SODIUM CHLORIDE 1,000 ML IVPB SCH (15:28)
--- NOTE | 2018-06-19 16:15 | CONSULT ---
Consult Consult Specialty:: Thoracic Surgery Referred by:: Dr. Krause Reason for Consultation:: Lung cancer - History of Present Illness Chief Complaint: anorexia, lethargy History of Present Illness: 73M former smoker with lethargy, dyspnea, weight loss for several weeks admitted to hospital and found to have a mass on CXR and CT scan with pleural effusion as well as a stroke and DVT of right sided vessels. No dx made after lung biopsy and thoracentesis but suspicious for lung cancer. Profoundly hypoxic but had hemorrhagic stroke. Lung not fully expanded but appears to be trapped due to RUL bronchial occlusion by tumor. - Past Medical History CLINICAL SERVICES ASSISTANT: Yes: Vertigo Cardio/Vascular: Yes: HTN Pulmonary: Yes: Other (non-productive cough, lung mass of right upper lobe) Gastrointestinal: Yes: Other (status post surgery for duodenal ulcer) Hepatobiliary: Yes: Other (distant metastases) Infectious Disease: Yes: Other (dental caries) Psych: Yes: Depression Musculoskeletal: Yes: Other (generalized muscle weakness) Dermatology: Yes: Other (Decubitus ulcer of right buttock) - Past Surgical History Past Surgical History: Yes: Hernia Repair (right inguinal hernia repair) Additional Surgical History: Laprotomy - Alcohol/Substance Use Hx Alcohol Use: No (used to drink beer) History of Substance Use: reports: None - Smoking History Smoking history: Former smoker Have you smoked in the past 12 months: No If you are a former smoker, when did you quit?: 2012 - Social History Usual Living Arrangement: With Spouse 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 Loss, Weakness Eyes: reports: No Symptoms HENT: reports: No Symptoms Neck: reports: No Symptoms Cardiovascular: reports: Shortness of Breath Respiratory: reports: SOB Gastrointestinal: reports: No Symptoms Musculoskeletal: reports: Muscle Weakness Neurological: reports: Weakness Physical Exam Vital Signs: Vital Signs Temperature 98.3 F 06/19/18 14:33 Pulse Rate 127 H 06/19/18 13:47 Respiratory Rate 20 06/19/18 13:47 Blood Pressure 130/87 06/19/18 13:47 O2 Sat by Pulse Oximetry (%) 88 L 06/19/18 13:03 Constitutional: Yes: Mild Distress Neck: Yes: Supple Cardiovascular: Yes: Tachycardia Respiratory: Yes: Other (decreased breath sounds right upper field.) Gastrointestinal: Yes: WNL Edema: Yes Labs: CBC, BMP 06/19/18 07:00 06/19/18 07:00 Imaging - Results Cat Scan: Image Reviewed Problem List - Problems (1) Acute hemorrhagic infarction of brain Code(s): I63.8 - OTHER CEREBRAL INFARCTION (2) COPD (chronic obstructive pulmonary disease) Code(s): J44.9 - CHRONIC OBSTRUCTIVE PULMONARY DISEASE, UNSPECIFIED (3) Diabetes mellitus Code(s): E11.9 - TYPE 2 DIABETES MELLITUS WITHOUT COMPLICATIONS (4) Hilar mass Code(s): R91.8 - OTHER NONSPECIFIC ABNORMAL FINDING OF LUNG FIELD (5) Liver metastasis Code(s): C78.7 - SECONDARY MALIG NEOPLASM OF LIVER AND INTRAHEPATIC BILE DUCT (6) Lung mass Code(s): R91.8 - OTHER NONSPECIFIC ABNORMAL FINDING OF LUNG FIELD Assessment/Plan Lung mass (likely lung cancer-advanced), constitutional sx, recurrent effusion ( ?malignant), trapped lung, severe hypoxia, DVT/PE? --Await liver bx results --May benefit from pleur-x but needs dx --Will follow.
[2018-06-19] MEDS ORDERED: ALBUTEROL SO4 2.5/IPRATROPIUM 0.5 INH SOL 3 ML VIAL.NEB. NEB ONE (20:34)
[2018-06-19] MEDS: ALBUTEROL SO4 2.5/IPRATROPIUM 0.5 INH SOL 3 ML VIAL.NEB. NEB PRN (20:35)
[2018-06-19] MEDS: DOCUSATE SODIUM 100 MG CAPSULE (FP) PO SCH (21:09)
[2018-06-19] MEDS: ATORVASTATIN CA 10 MG TABLET (FP) PO SCH (21:09)
[2018-06-19] MEDS: MIRTAZAPINE 15 MG TABLET (FP) PO SCH (21:09)
[2018-06-20] MEDS: NYSTATIN 500,000 UNITS/5 ML SUSPENSION PO SCH ×3 (05:11→17:27)
[2018-06-20] MEDS: INSULIN (NOVOLOG MIX 70/30) 100 UNITS/ML MDV SQ SCH (06:10)
[2018-06-20] MEDS: INSULIN SLIDING SCALE (NOVOLOG) 1 VIAL SQ SCH ×4 (06:10→22:26)
--- NOTE | 2018-06-20 07:51 | PN ---
Progress Note, Physician Chief Complaint: Shortness of breath, generalized weakness, difficulty in swallowing. 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 - Current Medication List Current Medications: Active Medications Albuterol/Ipratropium (Duoneb -) 1 amp NEB Q6H PRN PRN Reason: WHEEZING Last Admin: 06/19/18 20:35 Dose: 1 amp Atorvastatin Calcium (Lipitor -) 10 mg PO HS [facility] Last Admin: 06/19/18 21:09 Dose: 10 mg Dexamethasone (Decadron -) 4 mg PO DAILY [facility] Last Admin: 06/19/18 09:00 Dose: 4 mg Docusate Sodium (Colace -) 200 mg PO HS [facility] Last Admin: 06/19/18 21:09 Dose: Not Given Potassium Chloride 40 meq/ (Sodium Chloride) 1,020 mls @ 50 mls/hr IVPB Q20H [facility] Last Admin: 06/19/18 15:28 Dose: 50 mls/hr Insulin Aspart (Novolog Vial Sliding Scale -) 1 vial SQ ACHS [facility]; Protocol Last Admin: 06/20/18 06:10 Dose: Not Given Insulin Aspart (Novolog Mix 70/30 Vial) 10 units SQ ACBK [facility] Last Admin: 06/20/18 06:10 Dose: Not Given Mirtazapine (Remeron -) 15 mg PO HS [facility] Last Admin: 06/19/18 21:09 Dose: 15 mg Nystatin (Nystatin Oral Suspension -) 500,000 units PO Q6HPO [facility] Last Admin: 06/20/18 05:11 Dose: Not Given Pantoprazole Sodium (Protonix -) 40 mg PO DAILY [facility] Last Admin: 06/19/18 09:00 Dose: 40 mg Polyethylene Glycol (Miralax (For Daily Use) -) 17 gm PO DAILY [facility] Last Admin: 06/19/18 09:00 Dose: 17 gm Tamsulosin HCl (Flomax -) 0.4 mg PO DAILY@0830 [facility] Last Admin: 06/19/18 09:00 Dose: 0.4 mg Tramadol HCl (Ultram -) 50 mg PO Q8H PRN PRN Reason: PAIN 4-6 Last Admin: 06/19/18 21:09 Dose: 50 mg - Objective Vital Signs: Vital Signs Temperature 97.9 F 06/20/18 06:00 Pulse Rate 99 H 06/20/18 06:00 Respiratory Rate 20 06/20/18 06:00 Blood Pressure 148/61 06/20/18 06:00 O2 Sat by Pulse Oximetry (%) 92 L 06/19/18 21:00 Constitutional: Yes: Well Nourished, Mild Distress Eyes: Yes: Conjunctiva Clear, EOM Intact HENT: Yes: Atraumatic, Normocephalic Neck: Yes: Supple, Trachea Midline Cardiovascular: Yes: Regular Rate and Rhythm Respiratory: Yes: CTA Bilaterally (left lung), Cough, Diminished (right lung), Dullness (right lung), Poor Air Entry, Rhonchi, SOB, Wheezes Gastrointestinal: Yes: Normal Bowel Sounds, Soft ...Rectal Exam: Yes: Deferred Genitourinary: Yes: WNL Breast(s): Yes: WNL Musculoskeletal: Yes: Muscle Weakness (generalized) Extremities: Yes: Cool Edema: Yes Edema: LUE: 3+, RUE: 3+, LLE: 1+, RLE: 1+ Peripheral Pulses WNL: Yes Integumentary: Yes: Pressure Ulcer (stage II of the right buttock) Neurological: Yes: Alert, Oriented, Unsteady Gait, Weakness ...Motor Strength: LUE (muscle weakness), LLE (muscle weakness), RUE (muscle weakness), RLE (muscle weakness) Psychiatric: Yes: Alert, Oriented Labs: CBC, BMP 06/19/18 07:00 06/19/18 07:00 INR, PTT INR 1.12 (0.83-1.09) H 06/07/18 06:41 - ....Imaging Other: Report Reviewed (Lab data reviewed.) Problem List - Problems (1) Lung mass Assessment/Plan: Palliative care. Code(s): R91.8 - OTHER NONSPECIFIC ABNORMAL FINDING OF LUNG FIELD (2) Diabetes mellitus Assessment/Plan: Novolog 70/30 and Novolog sliding scale coverage. Code(s): E11.9 - TYPE 2 DIABETES MELLITUS WITHOUT COMPLICATIONS (3) Deep venous thrombosis of axillary vein Assessment/Plan: Anticoagulation if there are no contraindications. Code(s): I82.A19 - ACUTE EMBOLISM AND THROMBOSIS OF UNSPECIFIED AXILLARY VEIN (4) Hypokalemia Assessment/Plan: IV KCL Code(s): E87.6 - HYPOKALEMIA (5) Acute hemorrhagic infarction of brain Assessment/Plan: Close observation. Code(s): I63.8 - OTHER CEREBRAL INFARCTION Assessment/Plan Plan: gradual worsening of dyspnea, acute difficulty in swallowing, decreased consumption of food intake, acute on chronic hypokalemia, hyponatremia, lung mass in the right upper lobe with distant metastases, three masses in the liver , DVT, superior vena cava syndrome, acute hemorrhagic stroke of the left parietal lboe. IV fluids, IV KCL, decrease Novolog 70/30 to 5 units SQ daily, dysphagia screening, prognosis very poor.
[2018-06-20] MEDS: traMADol HCL 50 MG TABLET PO PRN ×2 (09:25→17:23)
[2018-06-20] MEDS: PANTOPRAZOLE 40 MG TABLET (FP) PO SCH (09:25)
[2018-06-20] MEDS: TAMSULOSIN HCL 0.4 MG CAP.ER.24H (FP) PO SCH (09:25)
[2018-06-20] MEDS: DEXAMETHASONE 4 MG TABLET (FP) PO SCH (09:25)
[2018-06-20] MEDS: POLYETHYLENE GLYCOL 3350 119 GM BTL PO SCH (09:26)
--- NOTE | 2018-06-20 13:27 | PN ---
Progress Note, Physician History of Present Illness: PULMONARY MILDLY DYSPNEIC,ON 100% NRBM. PT S/P LIVER BX,TOLERATED PROCEDURE WELL - Current Medication List Current Medications: Active Medications Albuterol/Ipratropium (Duoneb -) 1 amp NEB Q6H PRN PRN Reason: WHEEZING Last Admin: 06/19/18 20:35 Dose: 1 amp Atorvastatin Calcium (Lipitor -) 10 mg PO HS [facility] Last Admin: 06/19/18 21:09 Dose: 10 mg Dexamethasone (Decadron -) 4 mg PO DAILY [facility] Last Admin: 06/20/18 09:25 Dose: 4 mg Docusate Sodium (Colace -) 200 mg PO HS [facility] [place] Last Admin: 06/19/18 21:09 Dose: Not Given Potassium Chloride 40 meq/ (Sodium Chloride) 1,020 mls @ 50 mls/hr IVPB Q20H [facility] [place] Last Admin: 06/19/18 15:28 Dose: 50 mls/hr Insulin Aspart (Novolog Vial Sliding Scale -) 1 vial SQ ACHS [facility] [place]; Protocol Last Admin: 06/20/18 12:19 Dose: Not Given Insulin Aspart (Novolog Mix 70/30 Vial) 5 units SQ ACBK [facility] Mirtazapine (Remeron -) 15 mg PO HS [facility] [place] Last Admin: 06/19/18 21:09 Dose: 15 mg Nystatin (Nystatin Oral Suspension -) 500,000 units PO Q6HPO [facility] [place] Last Admin: 06/20/18 12:20 Dose: Not Given Pantoprazole Sodium (Protonix -) 40 mg PO DAILY [facility] [place] Last Admin: 06/20/18 09:25 Dose: 40 mg Polyethylene Glycol (Miralax (For Daily Use) -) 17 gm PO DAILY [facility] [place] Last Admin: 06/20/18 09:26 Dose: 17 gm Tamsulosin HCl (Flomax -) 0.4 mg PO DAILY@0830 [facility] [place] Last Admin: 06/20/18 09:25 Dose: 0.4 mg - Objective Vital Signs: Vital Signs Temperature 98.2 F 06/20/18 09:47 Pulse Rate 113 H 06/20/18 09:47 Respiratory Rate 20 06/20/18 09:47 Blood Pressure 139/82 06/20/18 09:47 O2 Sat by Pulse Oximetry (%) 92 L 06/19/18 21:00 Constitutional: Yes: Well Nourished, Other (MILDLY DYPNEIC) Eyes: Yes: WNL HENT: Yes: WNL Neck: Yes: WNL Cardiovascular: Yes: Regular Rate and Rhythm, S1, S2 Respiratory: Yes: Diminished Gastrointestinal: Yes: Normal Bowel Sounds, Soft Extremities: Yes: WNL Edema: No Labs: CBC, BMP Assessment/Plan Problem List - Problems (1) COPD (chronic obstructive pulmonary disease) Code(s): J44.9 - CHRONIC OBSTRUCTIVE PULMONARY DISEASE, UNSPECIFIED (2) Pleural effusion Code(s): J90 - PLEURAL EFFUSION, NOT ELSEWHERE CLASSIFIED EXUDATE BY ALBUMIN GRADIENT CRITERIA (3) Hilar mass Code(s): R91.8 - OTHER NONSPECIFIC ABNORMAL FINDING OF LUNG FIELD (4) Hyponatremia Code(s): E87.1 - HYPO-OSMOLALITY AND HYPONATREMIA (5) Liver metastasis Code(s): C78.7 - SECONDARY MALIG NEOPLASM OF LIVER AND INTRAHEPATIC BILE DUCT (6) Lung mass Code(s): R91.8 - OTHER NONSPECIFIC ABNORMAL FINDING OF LUNG FIELD (7) Poor appetite Code(s): R63.0 - ANOREXIA (8) Superior vena cava compression syndrome Code(s): I87.1 - COMPRESSION OF VEIN 9. R parietal cva 10 R PTX TRAPPED LUNG Assessment/PLAN O2 as needed No smoking BD TX PRN DECADRON check path of liver bx chest x-rays pallitive care prognosis poor DR MADRID
[2018-06-20] MEDS: POTASSIUM CHLORIDE 40 MEQ in SODIUM CHLORIDE 1,000 ML IVPB SCH (14:09)
[2018-06-20] MEDS ORDERED: TRIPLE LUMEN FLUSH 4 ML ML IVPUSH PRN (20:09)
[2018-06-20] MEDS: ATORVASTATIN CA 10 MG TABLET (FP) PO SCH (22:25)
[2018-06-20] MEDS: MIRTAZAPINE 15 MG TABLET (FP) PO SCH (22:25)
[2018-06-20] MEDS: DOCUSATE SODIUM 100 MG CAPSULE (FP) PO SCH (22:26)
[2018-06-21] MEDS: NYSTATIN 500,000 UNITS/5 ML SUSPENSION PO SCH ×4 (00:05→17:20)
[2018-06-21] MEDS: ALBUTEROL SO4 2.5/IPRATROPIUM 0.5 INH SOL 3 ML VIAL.NEB. NEB PRN ×2 (05:20→07:50)
[2018-06-21] MEDS: POTASSIUM CHLORIDE 40 MEQ in SODIUM CHLORIDE 1,000 ML IVPB SCH (06:52)
[2018-06-21] MEDS: INSULIN SLIDING SCALE (NOVOLOG) 1 VIAL SQ SCH ×4 (06:53→21:47)
[2018-06-21] MEDS: INSULIN (NOVOLOG MIX 70/30) 100 UNITS/ML MDV SQ SCH (06:57)
[2018-06-21] MEDS ORDERED: INSULIN (NOVOLOG) ASPART 100 UNITS/ML 10ML VIAL ONE ×2 (10:05→21:47)
[2018-06-21] MEDS: PANTOPRAZOLE 40 MG TABLET (FP) PO SCH (10:18)
[2018-06-21] MEDS: TAMSULOSIN HCL 0.4 MG CAP.ER.24H (FP) PO SCH (10:18)
[2018-06-21] MEDS: DEXAMETHASONE 4 MG TABLET (FP) PO SCH (10:18)
[2018-06-21] MEDS: POLYETHYLENE GLYCOL 3350 119 GM BTL PO SCH (10:25)
--- NOTE | 2018-06-21 11:58 | PN ---
Progress Note, Physician Chief Complaint: Shortness of breath, difficulty in swallowing, generalized muscle weakness. History of Present Illness: This 73 yr old w/m admitted via ER with acute generalized muscle weakness, anorexia, abnormal weight loss, acute hyponatremia, acute hypokalemia, acute neutrophillic leukocytosis, lung mass in the right upper lobe with distant metastases, right pleural effusion, three liver masses, acute hemorrhagic stroke of the left parietal lobe, DVT, UTI, superior vena cava syndrome and type 2 diabetes mellitus. - Current Medication List Current Medications: Active Medications Albuterol/Ipratropium (Duoneb -) 1 amp NEB Q6H PRN PRN Reason: WHEEZING Last Admin: 06/21/18 07:50 Dose: 1 amp Atorvastatin Calcium (Lipitor -) 10 mg PO HS [facility] Last Admin: 06/20/18 22:25 Dose: 10 mg Dexamethasone (Decadron -) 4 mg PO DAILY [facility] Last Admin: 06/21/18 10:18 Dose: 4 mg Docusate Sodium (Colace -) 200 mg PO HS [facility] Last Admin: 06/20/18 22:26 Dose: Not Given IV Flush (Triple Lumen Flush) 4 ml IVPUSH PRN PRN PRN Reason: Protocol Potassium Chloride 40 meq/ (Sodium Chloride) 1,020 mls @ 50 mls/hr IVPB Q20H [facility] Last Admin: 06/21/18 06:52 Dose: 50 mls/hr Insulin Aspart (Novolog Vial Sliding Scale -) 1 vial SQ ACHS [facility]; Protocol Last Admin: 06/21/18 06:53 Dose: Not Given Insulin Aspart (Novolog Mix 70/30 Vial) 5 units SQ ACBK [facility] Last Admin: 06/21/18 06:57 Dose: 5 units Mirtazapine (Remeron -) 15 mg PO HS [facility] Last Admin: 06/20/18 22:25 Dose: 15 mg Nystatin (Nystatin Oral Suspension -) 500,000 units PO Q6HPO [facility] Last Admin: 06/21/18 06:52 Dose: 500,000 units Pantoprazole Sodium (Protonix -) 40 mg PO DAILY [facility] Last Admin: 06/21/18 10:18 Dose: 40 mg Polyethylene Glycol (Miralax (For Daily Use) -) 17 gm PO DAILY [facility] Last Admin: 06/21/18 10:25 Dose: 17 gm Tamsulosin HCl (Flomax -) 0.4 mg PO DAILY@0830 [facility] Last Admin: 06/21/18 10:18 Dose: 0.4 mg Tramadol HCl (Ultram -) 50 mg PO Q8H PRN PRN Reason: PAIN LEVEL 4 - 6 Last Admin: 06/20/18 17:23 Dose: 50 mg - Objective Vital Signs: Vital Signs Temperature 97.4 F L 06/21/18 06:00 Pulse Rate 99 H 06/21/18 06:00 Respiratory Rate 20 06/21/18 06:00 Blood Pressure 121/73 06/21/18 06:00 O2 Sat by Pulse Oximetry (%) 96 06/20/18 21:00 Constitutional: Yes: Well Nourished, Mild Distress Eyes: Yes: Conjunctiva Clear, EOM Intact HENT: Yes: Atraumatic, Normocephalic, Thrush Neck: Yes: Supple, Trachea Midline Cardiovascular: Yes: Regular Rate and Rhythm Respiratory: Yes: Cough, Diminished (right lung), Dullness (right lung), Poor Air Entry (right lung), Rhonchi, SOB, Other (right pneumothorax) Gastrointestinal: Yes: Normal Bowel Sounds, Soft ...Rectal Exam: Yes: Deferred Genitourinary: Yes: WNL Breast(s): Yes: WNL Musculoskeletal: Yes: Muscle Weakness (generalized) Extremities: Yes: Cool Edema: Yes Edema: LUE: 3+, RUE: 3+, LLE: 1+, RLE: 1+ Peripheral Pulses WNL: Yes Integumentary: Yes: Pressure Ulcer (stage II of the right buttock) Neurological: Yes: Alert, Oriented, Unsteady Gait, Weakness ...Motor Strength: LUE (muscle weakness), LLE (muscle weakness), RUE (muscle weakness), RLE (muscle weakness) Psychiatric: Yes: Alert, Oriented Labs: CBC, BMP 06/19/18 07:00 06/19/18 07:00 INR, PTT INR 1.12 (0.83-1.09) H 06/07/18 06:41 Problem List - Problems (1) Lung mass Assessment/Plan: Palliative care. Code(s): R91.8 - OTHER NONSPECIFIC ABNORMAL FINDING OF LUNG FIELD (2) Diabetes mellitus Assessment/Plan: Novolog 70/30 and Novolog sliding scale coverage. Code(s): E11.9 - TYPE 2 DIABETES MELLITUS WITHOUT COMPLICATIONS (3) Deep venous thrombosis of axillary vein Assessment/Plan: Anticoagulation if no contraindications. Code(s): I82.A19 - ACUTE EMBOLISM AND THROMBOSIS OF UNSPECIFIED AXILLARY VEIN (4) Hypokalemia Assessment/Plan: IV KCL Code(s): E87.6 - HYPOKALEMIA (5) Acute hemorrhagic infarction of brain Assessment/Plan: Close observation, supportive care. Code(s): I63.8 - OTHER CEREBRAL INFARCTION Assessment/Plan Plan: acute dyspnea, acute difficulty in swallowing, hypokalemia, hyponatremia, lung mass in the right upper lobe with distant metastases, acute hemorrhagic stroke of the left parietal lobe, superior vena cava syndrome, DVT, s/p liver biopsy, pathology report pending. IV fluids, IV KCL, tamsulosin Q2D, decadron q2d, discussed with son Timoteo and daughter Vera clinical condition of the patient, patient's refuses to believe that the patient's clinical condition is very poor.
[2018-06-21] MEDS: traMADol HCL 50 MG TABLET PO PRN (13:45)
--- NOTE | 2018-06-21 13:56 | PN ---
Progress Note (short form) - Note Progress Note: PULMONARY Chest tube in place on full suction. Some shortness of breath. No fevers or chills. CXR done this AM reveals persistent PTX on right with large mass Gen: mildly dypsneic at rest Heart: RRR Lung: scattered rhonchi/diminished breath sounds on right/chest tube in place on suction Abd: soft, nontender Ext: B/L upper ext edema Labs/meds/notes/images/path pending daughter present A/P Lung Mass likely malignant/Liver mass path shows poorly differentiated carcinoma likely primary lung Pneumothorax right/trapped lung COPD Acute CVA BPH HTN DM - daily CXR, if lung re-expanded can take chest tube off suction - inhaled bronchodilators - O2 to keep SpO2 >90% - DVT prophylaxis - Prognosis poor. - determine competence of patient to make informed decision - suggest hospice Martine VARELA MD
--- NOTE | 2018-06-21 16:24 | PATH ---
Surgical Pathology Report Patient Name: ZOË LUNA [facility]. Rec. #: [id number] /Age/Gender: 1945 (Age: 73) / M Account: [id number] Location: 4 PEDS/ADOL Taken: 06/19/2018 Received: 06/19/2018 Reported: 06/21/2018 Physicians: Marek Moyer M.D. Norman Rosen, M.D. Kalyan Krause M.D. Specimen(s) Received LIVER BIOPSY Clinical History 73-year-old male with multiple lung and liver lesions status post non-diagnostic biopsy Final Diagnosis LIVER, CT-GUIDED CORE BIOPSY: POORLY DIFFERENTIATED CARCINOMA WITH MARKED NECROSIS. SEE COMMENT. Comment: Histologic sections show aggregates of malignant epithelial cells in a background of marked necrosis. Immunohistochemical stains performed and interpreted at [facility] show the tumor is positive for AE1/3 and CK7, while negative for CK20 and TTF-1. P63 shows non-specific staining. Additional immunohistochemical stains performed at [place], [place] ([id number]) and interpreted at [facility] show rare isolated positivity with CK5/6; while negative for Napsin-A and p40. This immunophenotype is non-specific. Given the presence of a clinical large lung mass, overall findings are compatible with lung origin (non-small cell poorly differentiated carcinoma). Case seen in interdepartmentally. Prior materials are noted. Findings discussed with Dr. Westbrook and Dr. Krause. Electronically Signed Shannon Crocker M.D. Gross Description Received in formalin labeled "liver biopsy," is a 0.5 x 0.5 x 0.1 cm aggregate of mcghee-red soft tissue fragments. The formalin is filtered and the specimen is entirely submitted in one cassette. 06/19/2018 saudi06/19/2018
[2018-06-21] MEDS: DOCUSATE SODIUM 100 MG CAPSULE (FP) PO SCH (21:45)
[2018-06-21] MEDS: MIRTAZAPINE 15 MG TABLET (FP) PO SCH (21:45)
[2018-06-21] MEDS: ATORVASTATIN CA 10 MG TABLET (FP) PO SCH (21:45)
[2018-06-22] MEDS: NYSTATIN 500,000 UNITS/5 ML SUSPENSION PO SCH ×4 (01:03→17:12)
[2018-06-22] MEDS: POTASSIUM CHLORIDE 40 MEQ in SODIUM CHLORIDE 1,000 ML IVPB SCH ×2 (02:04→23:10)
[2018-06-22] MEDS: INSULIN SLIDING SCALE (NOVOLOG) 1 VIAL SQ SCH ×4 (06:45→23:10)
[2018-06-22] MEDS: INSULIN (NOVOLOG MIX 70/30) 100 UNITS/ML MDV SQ SCH (06:45)
--- NOTE | 2018-06-22 06:56 | PN ---
Progress Note, Physician Chief Complaint: Difficulty in swallowing and shortness of breath. History of Present Illness: This 73 yr old w/m admitted via ER with acute generalized muscle weakness, anorexia, abnormal weight loss, lung mass in the right upper lobe with distant metastases, acute hemorrhagic stroke of the left parietal lobe, acute hyponatremia, acute hypokalemia, DVT, UTI, type 2 diabetes mellitus and superior vena cava syndrome. - Current Medication List Current Medications: Active Medications Albuterol/Ipratropium (Duoneb -) 1 amp NEB Q6H PRN PRN Reason: WHEEZING Last Admin: 06/21/18 07:50 Dose: 1 amp Atorvastatin Calcium (Lipitor -) 10 mg PO [facility] Last Admin: 06/21/18 21:45 Dose: 10 mg Dexamethasone (Decadron -) 4 mg PO Q2D [facility] Docusate Sodium (Colace -) 200 mg PO HS [facility] Last Admin: 06/21/18 21:45 Dose: 200 mg IV Flush (Triple Lumen Flush) 4 ml IVPUSH PRN PRN PRN Reason: Protocol Potassium Chloride 40 meq/ (Sodium Chloride) 1,020 mls @ 50 mls/hr IVPB Q20H [facility] Last Admin: 06/22/18 02:04 Dose: 50 mls/hr Insulin Aspart (Novolog Vial Sliding Scale -) 1 vial SQ ACHS [facility]; Protocol Last Admin: 06/22/18 06:45 Dose: Not Given Insulin Aspart (Novolog Mix 70/30 Vial) 5 units SQ ACBK [facility] Last Admin: 06/22/18 06:45 Dose: Not Given Mirtazapine (Remeron -) 15 mg PO [facility] Last Admin: 06/21/18 21:45 Dose: 15 mg Nystatin (Nystatin Oral Suspension -) 500,000 units PO Q6HPO [facility] Last Admin: 06/22/18 06:45 Dose: Not Given Pantoprazole Sodium (Protonix -) 40 mg PO DAILY [facility] Last Admin: 06/21/18 10:18 Dose: 40 mg Polyethylene Glycol (Miralax (For Daily Use) -) 17 gm PO DAILY [facility] Last Admin: 06/21/18 10:25 Dose: 17 gm Tamsulosin HCl (Flomax -) 0.4 mg PO Q2D@0830 [facility] Tramadol HCl (Ultram -) 50 mg PO Q8H PRN PRN Reason: PAIN LEVEL 4 - 6 Last Admin: 06/21/18 13:45 Dose: 50 mg - Objective Vital Signs: Vital Signs Temperature 97.5 F L 06/22/18 06:00 Pulse Rate 83 06/22/18 06:00 Respiratory Rate 20 06/22/18 06:00 Blood Pressure 135/75 06/22/18 06:00 O2 Sat by Pulse Oximetry (%) 96 06/21/18 21:00 Constitutional: Yes: Well Nourished, Mild Distress Eyes: Yes: Conjunctiva Clear, EOM Intact HENT: Yes: Atraumatic, Normocephalic Neck: Yes: Supple, Trachea Midline Cardiovascular: Yes: Regular Rate and Rhythm Respiratory: Yes: CTA Bilaterally, Cough (hemoptysis), Diminished (right lung), Dullness (right lung), Rhonchi, SOB Gastrointestinal: Yes: Normal Bowel Sounds, Soft ...Rectal Exam: Yes: Deferred Genitourinary: Yes: WNL Breast(s): Yes: WNL Musculoskeletal: Yes: Muscle Weakness (generalized) Extremities: Yes: Cool Edema: Yes Edema: LUE: 3+, RUE: 3+, LLE: 1+, RLE: 1+ Peripheral Pulses WNL: Yes Integumentary: Yes: Pressure Ulcer (stage II of the right buttock) Neurological: Yes: Alert, Oriented, Unsteady Gait, Weakness ...Motor Strength: LUE (muscle weakness), LLE (muscle weakness), RUE (muscle weakness), RLE (muscle weakness) Psychiatric: Yes: Alert, Oriented (Pulmonary note read and appreciated.) Labs: CBC, BMP 06/19/18 07:00 06/19/18 07:00 INR, PTT INR 1.12 (0.83-1.09) H 06/07/18 06:41 Problem List - Problems (1) Lung mass Assessment/Plan: Poorly differentiated carcinoma of the lung, palliative care. Code(s): R91.8 - OTHER NONSPECIFIC ABNORMAL FINDING OF LUNG FIELD (2) Diabetes mellitus Assessment/Plan: Novolog 70/30 and novolog sliding scale coverage. Code(s): E11.9 - TYPE 2 DIABETES MELLITUS WITHOUT COMPLICATIONS (3) Deep venous thrombosis of axillary vein Assessment/Plan: Anticoagulation if no contraindications. Code(s): I82.A19 - ACUTE EMBOLISM AND THROMBOSIS OF UNSPECIFIED AXILLARY VEIN (4) Hypokalemia Assessment/Plan: IV KCL Code(s): E87.6 - HYPOKALEMIA (5) Acute hemorrhagic infarction of brain Assessment/Plan: Close observation. Code(s): I63.8 - OTHER CEREBRAL INFARCTION Assessment/Plan Plan: poorly differentiated carcinoma, hypokalemia, hyponatremia, right lung mass with distant metastases, acute hemorrhagic stroke of the left parietal lobe , gradual worsening of dyspnea and hemoptysis, prognosis very poor, discussed clinical condition of the patient with his .
--- NOTE | 2018-06-22 09:18 | PN ---
Progress Note (short form) - Note Progress Note: PULMONARY Chest tube in place on full suction. Some shortness of breath. No fevers or chills. CXR pending for this am Gen: mildly dypsneic at rest Heart: RRR Lung: scattered rhonchi/diminished breath sounds on right/chest tube in place on suction Abd: soft, nontender Ext: B/L upper ext edema Labs/meds/notes/images/path pending present A/P Lung Mass likely malignant/Liver mass path shows poorly differentiated carcinoma likely primary lung Pneumothorax right/trapped lung COPD Acute CVA BPH HTN DM - daily CXR, if lung re-expanded can take chest tube off suction - inhaled bronchodilators - O2 to keep SpO2 >90% - DVT prophylaxis - Prognosis poor. - determine competence of patient to make informed decision - suggest hospice Martine VARELA MD
[2018-06-22] MEDS: POLYETHYLENE GLYCOL 3350 119 GM BTL PO SCH (10:40)
[2018-06-22] MEDS: PANTOPRAZOLE 40 MG TABLET (FP) PO SCH (10:40)
[2018-06-22 11:58] LABS: BASO % 0.2 % (0-2.0); EOS % 2.9 % (0-4.5); HEMATOCRIT 34.5 % (35.4-49); HEMOGLOBIN 11.5 GM/dL (11.7-16.9); MCH 27.5 pg (25.7-33.7); MCHC 33.3 g/dl (32.0-35.9); MEAN CELL VOLUME 82.7 fl (80-96); MONO % 5.6 % (3.8-10.2); NEUT % 84.3 % (42.8-82.8); PLATELET COUNT 135 K/MM3 (134-434); RBC 4.17 M/mm3 (4.00-5.60); RDW 17.9 % (11.9-15.9)
[2018-06-22 12:31] LABS: ALBUMIN 1.9 g/dl (3.4-5.0); ANION GAP 12 MMOL/L (8-16); BILIRUBIN,TOTAL 0.4 mg/dL (0.2-1.0); BLOOD UREA NITROGEN 10 mg/dL (7-18); CALCIUM 7.5 mg/dL (8.5-10.1); CHLORIDE 105 mmol/L (98-107); CO2 20 mmol/L (21-32); CREATININE 0.4 mg/dL (0.7-1.3); GLUCOSE,RANDOM 189 mg/dL (74-106); POTASSIUM 4.4 mmol/L (3.5-5.1); SGOT/AST 31 U/L (15-37); SGPT/ALT 40 U/L (12-78); SODIUM 137 mmol/L (136-145); TOT PROT 4.8 g/dl (6.4-8.2)
[2018-06-22 12:32] LABS: ALK PHOS 101 U/L (45-117)
[2018-06-22] MEDS ORDERED: INSULIN (NOVOLOG) ASPART 100 UNITS/ML 10ML VIAL ONE (17:15)
[2018-06-22] MEDS: DOCUSATE SODIUM 100 MG CAPSULE (FP) PO SCH (22:09)
[2018-06-22] MEDS: ATORVASTATIN CA 10 MG TABLET (FP) PO SCH (22:09)
[2018-06-22] MEDS: MIRTAZAPINE 15 MG TABLET (FP) PO SCH (22:10)
[2018-06-23] MEDS: NYSTATIN 500,000 UNITS/5 ML SUSPENSION PO SCH ×4 (00:05→17:07)
[2018-06-23] MEDS: INSULIN (NOVOLOG MIX 70/30) 100 UNITS/ML MDV SQ SCH (06:05)
[2018-06-23] MEDS: INSULIN SLIDING SCALE (NOVOLOG) 1 VIAL SQ SCH ×4 (06:06→22:20)
[2018-06-23] MEDS ORDERED: TAMSULOSIN HCL 0.4 MG CAP.ER.24H (FP) PO SCH (08:30)
[2018-06-23] MEDS ORDERED: DEXAMETHASONE 4 MG TABLET (FP) PO SCH (10:00)
[2018-06-23] MEDS: PANTOPRAZOLE 40 MG TABLET (FP) PO SCH (10:08)
[2018-06-23] MEDS: POLYETHYLENE GLYCOL 3350 119 GM BTL PO SCH (10:08)
--- NOTE | 2018-06-23 10:42 | PN ---
Progress Note (short form) - Note Progress Note: PULMONARY Chest tube in place on full suction. Some shortness of breath/cough.No fevers or chills. CXR revealed resolution of PTX Gen: mildly dypsneic at rest Heart: RRR Lung: scattered rhonchi/diminished breath sounds on right/chest tube in place on suction Abd: soft, nontender Ext: B/L upper ext edema Labs/meds/notes/images/path pending present A/P Lung Mass likely malignant/Liver mass path shows poorly differentiated carcinoma likely primary lung Pneumothorax resolved COPD Acute CVA BPH HTN DM - stop wall suction repeat CXR this afternoon - would remove chest tube if repeat cxr reveals no PTX - inhaled bronchodilators - O2 to keep SpO2 >90% - DVT prophylaxis - Prognosis poor. - determine competence of patient to make informed decision - suggest palliative care if oncological treatment is not planned Martine VARELA MD
[2018-06-23] MEDS ORDERED: MAGNESIUM 1GM/D5W - 1 GM/100 ML IVPB IVPB ONE (12:18)
--- NOTE | 2018-06-23 12:19 | PN ---
Progress Note, Physician Chief Complaint: Shortness of breath. History of Present Illness: This 73 yr old w/m with hx of hypertension and type 2 diabetes admitted via ER with acute generalized weakness, anorexia, abnormal weight loss, lung mass of the right upper lobe with distant metastases, poorly differentiated carcinoma, acute hyponatremia, acute hypokalemia, acute hypomagnesemia, acute hemorrhagic stroke of the left parietal lobe, DVT, UTI, superior vena cava syndrome. - Current Medication List Current Medications: Active Medications Albuterol/Ipratropium (Duoneb -) 1 amp NEB Q6H PRN PRN Reason: WHEEZING Last Admin: 06/21/18 07:50 Dose: 1 amp Atorvastatin Calcium (Lipitor -) 10 mg PO HS [facility] BEDS AT [facility] Last Admin: 06/22/18 22:09 Dose: 10 mg Dexamethasone (Decadron -) 4 mg PO Q2D [facility]S [facility]CLUDE 234 BEDS AT THE [facility] Last Admin: 06/23/18 10:08 Dose: 4 mg Docusate Sodium (Colace -) 200 mg PO HS [facility] 234 BEDS AT THE [facility] Last Admin: 06/22/18 22:09 Dose: 200 mg IV Flush (Triple Lumen Flush) 4 ml IVPUSH PRN PRN PRN Reason: Protocol Potassium Chloride 40 meq/ (Sodium Chloride) 1,020 mls @ 50 mls/hr IVPB Q20H [facility] 234 BEDS AT THE [facility] Last Admin: 06/22/18 23:10 Dose: 50 mls/hr Insulin Aspart (Novolog Vial Sliding Scale -) 1 vial SQ ACHS [facility] 234 BEDS AT THE [facility]; Protocol Last Admin: 06/23/18 06:06 Dose: Not Given Insulin Aspart (Novolog Mix 70/30 Vial) 5 units SQ ACBK [facility]S [facility] 234 BEDS AT [facility] Last Admin: 06/23/18 06:05 Dose: 5 units Mirtazapine (Remeron -) 15 mg PO HS [facility] 234 BEDS AT [facility] Last Admin: 06/22/18 22:10 Dose: 15 mg Nystatin (Nystatin Oral Suspension -) 500,000 units PO Q6HPO [facility] 234 BEDS AT [facility] Last Admin: 06/23/18 05:49 Dose: Not Given Pantoprazole Sodium (Protonix -) 40 mg PO DAILY [facility] 234 BEDS AT [facility] Last Admin: 06/23/18 10:08 Dose: 40 mg Polyethylene Glycol (Miralax (For Daily Use) -) 17 gm PO DAILY [facility] 234 BEDS AT [facility] Last Admin: 06/23/18 10:08 Dose: 17 gm Tamsulosin HCl (Flomax -) 0.4 mg PO Q2D@0830 [facility]S [facility]CLUDE 234 BEDS AT [facility] Last Admin: 06/23/18 10:08 Dose: 0.4 mg Tramadol HCl (Ultram -) 50 mg PO Q8H PRN PRN Reason: PAIN LEVEL 4 - 6 Last Admin: 06/21/18 13:45 Dose: 50 mg - Objective Vital Signs: Vital Signs Temperature 98.4 F 06/23/18 10:00 Pulse Rate 102 H 06/23/18 10:00 Respiratory Rate 20 06/23/18 10:00 Blood Pressure 143/90 06/23/18 10:00 O2 Sat by Pulse Oximetry (%) 94 L 06/23/18 10:00 Constitutional: Yes: Well Nourished, Mild Distress, Other (dental caries) Eyes: Yes: Conjunctiva Clear, EOM Intact HENT: Yes: Atraumatic, Normocephalic Neck: Yes: Supple, Trachea Midline Cardiovascular: Yes: Regular Rate and Rhythm Respiratory: Yes: Regular, Accessory Muscle Use, Cough (hemoptysis), Diminished (right lung), Dullness (right lung), On Venti-Mask, Rhonchi, SOB, Tachypnea Gastrointestinal: Yes: Normal Bowel Sounds, Soft, Other (difficulty in swallowing) ...Rectal Exam: Yes: Deferred Genitourinary: Yes: WNL Breast(s): Yes: WNL Musculoskeletal: Yes: Muscle Weakness (generalized) Extremities: Yes: Cool Edema: Yes Edema: LUE: 3+, RUE: 3+, LLE: Trace, RLE: Trace Peripheral Pulses WNL: Yes Integumentary: Yes: Pressure Ulcer (stage II of the right buttock, gradually healing.) Neurological: Yes: Alert, Oriented, Unsteady Gait, Weakness ...Motor Strength: LUE (muscle weakness), LLE (muscle weakness), RUE (muscle weakness), RLE (muscle weakness) Psychiatric: Yes: Alert, Oriented Labs: CBC, BMP 06/22/18 11:40 06/22/18 11:40 INR, PTT INR 1.12 (0.83-1.09) H 06/07/18 06:41 - ....Imaging Other: Report Reviewed (Lab data reviewed. Pulmonary note read and appreciated. ) Problem List - Problems (1) Lung mass Assessment/Plan: Poorly differentiated carcinoma, palliative care. Code(s): R91.8 - OTHER NONSPECIFIC ABNORMAL FINDING OF LUNG FIELD (2) Diabetes mellitus Assessment/Plan: Novolog 70/30 and novolog sliding scale coverage. Code(s): E11.9 - TYPE 2 DIABETES MELLITUS WITHOUT COMPLICATIONS (3) Deep venous thrombosis of axillary vein Assessment/Plan: Anticoagulation if there are no contraindications. Code(s): I82.A19 - ACUTE EMBOLISM AND THROMBOSIS OF UNSPECIFIED AXILLARY VEIN (4) Hypokalemia Assessment/Plan: IV KCL Code(s): E87.6 - HYPOKALEMIA (5) Acute hemorrhagic infarction of brain Assessment/Plan: Close observation. Code(s): I63.8 - OTHER CEREBRAL INFARCTION Assessment/Plan Plan: Poorly differentiated carcinoma, lung mass of the right upper lobe with distant metastases, hypomagnesemia, DVT, acute hemorrhagic stroke of the left parietal lobe, prognosis very poor. IV fluids with KCL 42ml/hr, IV magnesium, discontinue Tamsulosin, Decadron Q2D, discussed clinical condition of the patient with patient's ; wishes to discuss with Dr. Westbrook further treatment and management.
[2018-06-23] MEDS: POTASSIUM CHLORIDE 40 MEQ in SODIUM CHLORIDE 1,000 ML IVPB SCH ×2 (13:38→22:12)
[2018-06-23] MEDS ORDERED: PT OWN MED DRAWER 7, Y5N ONE (16:47)
[2018-06-23] MEDS ORDERED: INSULIN (NOVOLOG) ASPART 100 UNITS/ML 10ML VIAL ONE (21:44)
[2018-06-23] MEDS: MIRTAZAPINE 15 MG TABLET (FP) PO SCH (22:20)
[2018-06-23] MEDS: DOCUSATE SODIUM 100 MG CAPSULE (FP) PO SCH (22:20)
[2018-06-23] MEDS: ATORVASTATIN CA 10 MG TABLET (FP) PO SCH (22:20)
[2018-06-24] MEDS: NYSTATIN 500,000 UNITS/5 ML SUSPENSION PO SCH ×4 (00:05→17:02)
[2018-06-24] MEDS: INSULIN SLIDING SCALE (NOVOLOG) 1 VIAL SQ SCH ×4 (06:33→22:05)
[2018-06-24] MEDS: INSULIN (NOVOLOG MIX 70/30) 100 UNITS/ML MDV SQ SCH (06:33)
[2018-06-24] MEDS: PANTOPRAZOLE 40 MG TABLET (FP) PO SCH (09:20)
[2018-06-24] MEDS: POLYETHYLENE GLYCOL 3350 119 GM BTL PO SCH (09:21)
--- NOTE | 2018-06-24 12:53 | PN ---
Progress Note, Physician Chief Complaint: Moderately dyspneic at rest especially when Venti-mask isn't in proper position , no difficulty in swallowing, easy fatigability. History of Present Illness: This 73 yr old w/m with hx of HTN and type 2 diabetes admitted via ER with acute generalized weakness, anorexia, abnormal weight loss, lung mass in the right upper lobe with distant metastases, acute hyponatremia, acute hypokalemia , acute neutrophillic leukocytosis, acute hemorrhagic stroke of the left parietal lobe, DVT, UTI and superior vena cava syndrome. - Current Medication List Current Medications: Active Medications Albuterol/Ipratropium (Duoneb -) 1 amp NEB Q6H PRN PRN Reason: WHEEZING Last Admin: 06/21/18 07:50 Dose: 1 amp Atorvastatin Calcium (Lipitor -) 10 mg PO HS [facility] Last Admin: 06/23/18 22:20 Dose: 10 mg Dexamethasone (Decadron -) 4 mg PO Q2D [facility] Last Admin: 06/23/18 10:08 Dose: 4 mg Docusate Sodium (Colace -) 200 mg PO HS [facility] Last Admin: 06/23/18 22:20 Dose: 200 mg IV Flush (Triple Lumen Flush) 4 ml IVPUSH PRN PRN PRN Reason: Protocol Potassium Chloride 40 meq/ (Sodium Chloride) 1,020 mls @ 42 mls/hr IVPB Q24H [facility] Last Admin: 06/23/18 22:12 Dose: 42 mls/hr Insulin Aspart (Novolog Vial Sliding Scale -) 1 vial SQ ACHS [facility]; Protocol Last Admin: 06/24/18 11:32 Dose: Not Given Insulin Aspart (Novolog Mix 70/30 Vial) 5 units SQ ACBK [facility] Last Admin: 06/24/18 06:33 Dose: Not Given Mirtazapine (Remeron -) 15 mg PO HS [facility] Last Admin: 06/23/18 22:20 Dose: 15 mg Nystatin (Nystatin Oral Suspension -) 500,000 units PO Q6HPO [facility] Last Admin: 06/24/18 11:30 Dose: 500,000 units Pantoprazole Sodium (Protonix -) 40 mg PO DAILY [facility] Last Admin: 06/24/18 09:20 Dose: 40 mg Polyethylene Glycol (Miralax (For Daily Use) -) 17 gm PO DAILY [facility] Last Admin: 06/24/18 09:21 Dose: 17 gm Tramadol HCl (Ultram -) 50 mg PO Q8H PRN PRN Reason: PAIN LEVEL 4 - 6 Last Admin: 06/21/18 13:45 Dose: 50 mg - Objective Vital Signs: Vital Signs Temperature 97.7 F 06/24/18 06:00 Pulse Rate 103 H 06/24/18 06:00 Respiratory Rate 20 06/24/18 09:00 Blood Pressure 147/85 06/24/18 06:00 O2 Sat by Pulse Oximetry (%) 95 06/24/18 09:00 Constitutional: Yes: Well Nourished, Moderate Distress Eyes: Yes: Conjunctiva Clear, EOM Intact HENT: Yes: Atraumatic, Normocephalic, Other (hemoptysis) Neck: Yes: Supple, Trachea Midline Cardiovascular: Yes: Regular Rate and Rhythm Respiratory: Yes: Regular, Accessory Muscle Use, Diminished (right lung), Dullness (right lung), On Venti-Mask, Rhonchi, SOB, SOB on Exertion, Tachypnea, Wheezes Gastrointestinal: Yes: Normal Bowel Sounds, Soft ...Rectal Exam: Yes: Deferred Genitourinary: Yes: WNL Breast(s): Yes: WNL Musculoskeletal: Yes: Muscle Weakness (generalized) Extremities: Yes: Cool Edema: Yes Edema: LUE: 3+, RUE: 3+, LLE: Trace, RLE: Trace Peripheral Pulses WNL: Yes Integumentary: Yes: Pressure Ulcer (gradually healing stage II pressure ulcer of the right buttock) Neurological: Yes: Alert, Oriented, Unsteady Gait, Weakness ...Motor Strength: LUE (diminished), LLE (diminshed), RUE (diminished), RLE ( diminished) Psychiatric: Yes: Alert, Oriented Labs: CBC, BMP 06/22/18 11:40 06/22/18 11:40 INR, PTT INR 1.12 (0.83-1.09) H 06/07/18 06:41 - ....Imaging Chest X-ray: Report Reviewed Other: Report Reviewed (Lab data reviewed.) Problem List - Problems (1) Lung mass Assessment/Plan: Poorly differentiated carcinoma, treatment plan as per Oncologist. Code(s): R91.8 - OTHER NONSPECIFIC ABNORMAL FINDING OF LUNG FIELD (2) Diabetes mellitus Assessment/Plan: Novolog 70/30 and novolog sliding scale coverage. Code(s): E11.9 - TYPE 2 DIABETES MELLITUS WITHOUT COMPLICATIONS (3) Deep venous thrombosis of axillary vein Assessment/Plan: Anticoagulation if no contraindications. Code(s): I82.A19 - ACUTE EMBOLISM AND THROMBOSIS OF UNSPECIFIED AXILLARY VEIN (4) Hypokalemia Assessment/Plan: IV KCL Code(s): E87.6 - HYPOKALEMIA (5) Acute hemorrhagic infarction of brain Assessment/Plan: Close observation. Code(s): I63.8 - OTHER CEREBRAL INFARCTION Assessment/Plan Plan: Poorly differentiated carcinoma of the lung, type 2 diabetes, moderate dyspnea at rest, hypokalemia, hypomagnesemia, lung mass in the right upper lobe with distant metastases, acute hemorrhagic stroke in the left parietal lobe, DVT , superior vena cava syndrome. IV fluids, IV KCL, discontinue Decadron, palliative care, prognosis very poor, discussed clinical condition of the patient with his daughter Vera.
--- NOTE | 2018-06-24 13:46 | PN ---
Progress Note (short form) - Note Progress Note: PULMONARY Remains on NRB. Chest tube draining serous fluid. Some shortness of breath. No fevers or chills. Vital Signs Period Temp Pulse Resp BP Sys/Garcia Pulse Ox Last 24 Hr 97.2 F-98.4 F 88-105 20-20 125-163/78-85 95-95 Intake & Output 06/21/18 06/22/18 06/23/18 06/24/18 23:59 23:59 23:59 23:59 Intake Total 1800 2700 0 904 Output Total 860 625 220 20 Balance 940 2075 -220 884 Gen: NAD at rest Heart: RRR Lung: absent breath sounds right Abd: soft, nontender Ext: + edema Chest tube: serous fluid, no air leak CBC, BMP 06/22/18 11:40 06/22/18 11:40 Active Medications Albuterol/Ipratropium (Duoneb -) 1 amp NEB Q6H PRN PRN Reason: WHEEZING Last Admin: 06/21/18 07:50 Dose: 1 amp Atorvastatin Calcium (Lipitor -) 10 mg PO HS [facility] Last Admin: 06/23/18 22:20 Dose: 10 mg Docusate Sodium (Colace -) 200 mg PO HS [facility] Last Admin: 06/23/18 22:20 Dose: 200 mg IV Flush (Triple Lumen Flush) 4 ml IVPUSH PRN PRN PRN Reason: Protocol Potassium Chloride 20 meq/ (Sodium Chloride) 1,010 mls @ 50 mls/hr IVPB Q24H [facility] Insulin Aspart (Novolog Vial Sliding Scale -) 1 vial SQ ACHS [facility]; Protocol Last Admin: 06/24/18 11:32 Dose: Not Given Insulin Aspart (Novolog Mix 70/30 Vial) 7 units SQ ACBK [facility] Mirtazapine (Remeron -) 15 mg PO HS [facility] Last Admin: 06/23/18 22:20 Dose: 15 mg Nystatin (Nystatin Oral Suspension -) 500,000 units PO Q6HPO [facility] Last Admin: 06/24/18 11:30 Dose: 500,000 units Pantoprazole Sodium (Protonix -) 40 mg PO DAILY [facility] Last Admin: 06/24/18 09:20 Dose: 40 mg Polyethylene Glycol (Miralax (For Daily Use) -) 17 gm PO DAILY [facility] Last Admin: 06/24/18 09:21 Dose: 17 gm Tramadol HCl (Ultram -) 50 mg PO Q8H PRN PRN Reason: PAIN LEVEL 4 - 6 Last Admin: 06/21/18 13:45 Dose: 50 mg A/P Likely Metastatic Lung Ca Pleural Effusion s/p CT guided needle biopsy Pneumothorax vs Trapped Lung COPD Acute CVA BPH HTN DM - IR to remove chest tube - repeat CXR in AM - inhaled bronchodilators - O2 to keep SpO2 >90% - DVT prophylaxis - poor overall prognosis
[2018-06-24] MEDS: SODIUM CHLORIDE 0.9%/KCL 20 MEQ/1,000 ML INFUS.BAG IV SCH (15:02)
[2018-06-24] MEDS: POTASSIUM CHLORIDE 40 MEQ in SODIUM CHLORIDE 1,000 ML IVPB SCH (15:17)
[2018-06-24] MEDS ORDERED: PT OWN MED DRAWER 7, Y5N ONE (17:37)
[2018-06-24] MEDS: ALBUTEROL SO4 2.5/IPRATROPIUM 0.5 INH SOL 3 ML VIAL.NEB. NEB PRN (17:45)
[2018-06-24] MEDS: MIRTAZAPINE 15 MG TABLET (FP) PO SCH (22:05)
[2018-06-24] MEDS: ATORVASTATIN CA 10 MG TABLET (FP) PO SCH (22:05)
[2018-06-24] MEDS: DOCUSATE SODIUM 100 MG CAPSULE (FP) PO SCH (22:05)
[2018-06-25] MEDS: NYSTATIN 500,000 UNITS/5 ML SUSPENSION PO SCH ×5 (02:04→23:32)
[2018-06-25] MEDS: ALBUTEROL SO4 2.5/IPRATROPIUM 0.5 INH SOL 3 ML VIAL.NEB. NEB PRN ×4 (05:50→23:41)
[2018-06-25] MEDS: INSULIN (NOVOLOG MIX 70/30) 100 UNITS/ML MDV SQ SCH (06:47)
[2018-06-25] MEDS: INSULIN SLIDING SCALE (NOVOLOG) 1 VIAL SQ SCH ×4 (06:49→21:20)
[2018-06-25] MEDS ORDERED: INSULIN (NOVOLOG) ASPART 100 UNITS/ML 10ML VIAL ONE ×2 (06:53→18:00)
[2018-06-25] MEDS ORDERED: INSULIN (LEVEMIR) 100 UNITS/ML UNITS SQ ONE (06:53)
[2018-06-25 07:14] LABS: BASO % 0.5 % (0-2.0); EOS % 3.5 % (0-4.5); HEMATOCRIT 33.8 % (35.4-49); HEMOGLOBIN 10.9 GM/dL (11.7-16.9); LYMPH % 8.1 % (8-40); MCH 26.4 pg (25.7-33.7); MCHC 32.4 g/dl (32.0-35.9); MEAN CELL VOLUME 81.7 fl (80-96); MEAN PLT VOLUME 7.3 fl (7.5-11.1); MONO % 6.7 % (3.8-10.2); NEUT % 81.2 % (42.8-82.8); PLATELET COUNT 125 K/MM3 (134-434); RBC 4.14 M/mm3 (4.00-5.60); RDW 17.8 % (11.9-15.9); WHITE BLOOD COUNT 14.1 K/mm3 (4.0-10.0)
[2018-06-25 07:54] LABS: CHLORIDE 103 mmol/L (98-107); SODIUM 138 mmol/L (136-145)
[2018-06-25 08:07] LABS: ANION GAP 12 MMOL/L (8-16); BLOOD UREA NITROGEN 9 mg/dL (7-18); CALCIUM 7.8 mg/dL (8.5-10.1); CO2 23 mmol/L (21-32); CREATININE 0.3 mg/dL (0.7-1.3); GLUCOSE,RANDOM 128 mg/dL (74-106)
[2018-06-25] MEDS: SODIUM CHLORIDE 0.9%/KCL 20 MEQ/1,000 ML INFUS.BAG IV SCH ×2 (09:45→14:27)
[2018-06-25] MEDS: PANTOPRAZOLE 40 MG TABLET (FP) PO SCH (10:20)
[2018-06-25] MEDS: POLYETHYLENE GLYCOL 3350 119 GM BTL PO SCH (10:20)
--- NOTE | 2018-06-25 11:45 | PN ---
Progress Note, Physician History of Present Illness: PULMONARY AWAKE,STILL DYSPNEIC ON 100% NRM. LESS CHEST TUBE DRAINAGE - Current Medication List Current Medications: Active Medications Albuterol/Ipratropium (Duoneb -) 1 amp NEB Q6H PRN PRN Reason: WHEEZING Last Admin: 06/25/18 05:50 Dose: 1 amp Atorvastatin Calcium (Lipitor -) 10 mg PO HS [facility] Last Admin: 06/24/18 22:05 Dose: 10 mg Docusate Sodium (Colace -) 200 mg PO HS [facility] Last Admin: 06/24/18 22:05 Dose: 200 mg IV Flush (Triple Lumen Flush) 4 ml IVPUSH PRN PRN PRN Reason: Protocol Potassium Chloride/Sodium Chloride (Ns+20 Meq Kcl -) 20 meq in 1,000 mls @ 50 mls/hr IV ASDIR [facility] Last Admin: 06/24/18 15:02 Dose: 50 mls/hr Insulin Aspart (Novolog Vial Sliding Scale -) 1 vial SQ ACHS [facility]; Protocol Last Admin: 06/25/18 06:49 Dose: Not Given Insulin Aspart (Novolog Mix 70/30 Vial) 7 units SQ ACBK [facility] Last Admin: 06/25/18 06:47 Dose: 7 units Mirtazapine (Remeron -) 15 mg PO HS [facility] Last Admin: 06/24/18 22:05 Dose: 15 mg Nystatin (Nystatin Oral Suspension -) 500,000 units PO Q6HPO [facility] Last Admin: 06/25/18 06:49 Dose: 500,000 units Pantoprazole Sodium (Protonix -) 40 mg PO DAILY [facility] Last Admin: 06/25/18 10:20 Dose: 40 mg Polyethylene Glycol (Miralax (For Daily Use) -) 17 gm PO DAILY [facility] Last Admin: 06/25/18 10:20 Dose: 17 gm Tramadol HCl (Ultram -) 50 mg PO Q8H PRN PRN Reason: PAIN LEVEL 4 - 6 Last Admin: 06/21/18 13:45 Dose: 50 mg - Objective Vital Signs: Vital Signs Temperature 97.8 F 06/25/18 10:00 Pulse Rate 116 H 06/25/18 10:00 Respiratory Rate 20 06/25/18 10:00 Blood Pressure 149/98 06/25/18 10:00 O2 Sat by Pulse Oximetry (%) 95 06/25/18 10:00 Constitutional: Yes: Well Nourished, Calm Eyes: Yes: WNL HENT: Yes: WNL Neck: Yes: WNL Cardiovascular: Yes: Regular Rate and Rhythm, S1, S2 Respiratory: Yes: Diminished (ABSENT BS ON R) Gastrointestinal: Yes: Normal Bowel Sounds, Soft Extremities: Yes: WNL Edema: Yes Labs: CBC, BMP 06/25/18 06:00 06/25/18 06:00 INR, PTT INR 1.12 (0.83-1.09) H 06/07/18 06:41 - ....Imaging Chest X-ray: Report Reviewed, Image Reviewed (NO CHANGE COMPLETE OPACIFICATION R HEMITHORAX) Assessment/Plan Problem List - Problems (1) COPD (chronic obstructive pulmonary disease) Code(s): J44.9 - CHRONIC OBSTRUCTIVE PULMONARY DISEASE, UNSPECIFIED (2) Pleural effusion Code(s): J90 - PLEURAL EFFUSION, NOT ELSEWHERE CLASSIFIED EXUDATE BY ALBUMIN GRADIENT CRITERIA (3) Hilar mass Code(s): R91.8 - OTHER NONSPECIFIC ABNORMAL FINDING OF LUNG FIELD (4) Hyponatremia Code(s): E87.1 - HYPO-OSMOLALITY AND HYPONATREMIA (5) Liver metastasis Code(s): C78.7 - SECONDARY MALIG NEOPLASM OF LIVER AND INTRAHEPATIC BILE DUCT (6) Lung mass Code(s): R91.8 - OTHER NONSPECIFIC ABNORMAL FINDING OF LUNG FIELD (7) Poor appetite Code(s): R63.0 - ANOREXIA (8) Superior vena cava compression syndrome Code(s): I87.1 - COMPRESSION OF VEIN 9. R parietal cva 10 R PTX TRAPPED LUNG 11 , METASTATIC CA Assessment/PLAN O2 as needed BD TX PRN chest x-rays palliative care prognosis very poor DR MADRID
--- NOTE | 2018-06-25 12:27 | PN ---
Progress Note, Physician Chief Complaint: Dyspneic and tachypneic at rest, easy fatigability. History of Present Illness: This 73 yr old w/m with hx of hypertension and type 2 diabetes admitted via ER with acute generalized muscle weakness, anorexia, abnormal weight loss, acute neutrophillic leukocytosis, acute hyponatremia, acute hypokalemia, lung mass in the right upper lobe with distant metastases, acute hemorrhagic stroke of the left parietal lobe, DVT, UTI and superior vena cava syndrome. - Current Medication List Current Medications: Active Medications Albuterol/Ipratropium (Duoneb -) 1 amp NEB Q6H PRN PRN Reason: WHEEZING Last Admin: 06/25/18 05:50 Dose: 1 amp Atorvastatin Calcium (Lipitor -) 10 mg PO HS [facility] Last Admin: 06/24/18 22:05 Dose: 10 mg Docusate Sodium (Colace -) 200 mg PO HS [facility] Last Admin: 06/24/18 22:05 Dose: 200 mg IV Flush (Triple Lumen Flush) 4 ml IVPUSH PRN PRN PRN Reason: Protocol Potassium Chloride/Sodium Chloride (Ns+20 Meq Kcl -) 20 meq in 1,000 mls @ 50 mls/hr IV ASDIR [facility] Last Admin: 06/24/18 15:02 Dose: 50 mls/hr Insulin Aspart (Novolog Vial Sliding Scale -) 1 vial SQ ACHS [facility]; Protocol Last Admin: 06/25/18 06:49 Dose: Not Given Insulin Aspart (Novolog Mix 70/30 Vial) 7 units SQ ACBK [facility] Last Admin: 06/25/18 06:47 Dose: 7 units Mirtazapine (Remeron -) 15 mg PO HS [facility] Last Admin: 06/24/18 22:05 Dose: 15 mg Nystatin (Nystatin Oral Suspension -) 500,000 units PO Q6HPO [facility] Last Admin: 06/25/18 06:49 Dose: 500,000 units Pantoprazole Sodium (Protonix -) 40 mg PO DAILY [facility] Last Admin: 06/25/18 10:20 Dose: 40 mg Polyethylene Glycol (Miralax (For Daily Use) -) 17 gm PO DAILY [facility] Last Admin: 06/25/18 10:20 Dose: 17 gm Tramadol HCl (Ultram -) 50 mg PO Q8H PRN PRN Reason: PAIN LEVEL 4 - 6 Last Admin: 06/21/18 13:45 Dose: 50 mg - Objective Vital Signs: Vital Signs Temperature 97.8 F 06/25/18 10:00 Pulse Rate 116 H 06/25/18 10:00 Respiratory Rate 20 06/25/18 10:00 Blood Pressure 149/98 06/25/18 10:00 O2 Sat by Pulse Oximetry (%) 95 06/25/18 10:00 Constitutional: Yes: Well Nourished, Diaphoresis, Moderate Distress, Other ( easy fatigability) Eyes: Yes: Conjunctiva Clear, EOM Intact HENT: Yes: Atraumatic, Normocephalic Neck: Yes: Supple, Trachea Midline Cardiovascular: Yes: Regular Rate and Rhythm Respiratory: Yes: Accessory Muscle Use, Cough, Diminished (right lung), Dullness (right lung), On Venti-Mask (100% O2), Rhonchi, SOB, Tachypnea Gastrointestinal: Yes: Normal Bowel Sounds, Soft ...Rectal Exam: Yes: Deferred Genitourinary: Yes: WNL Breast(s): Yes: WNL Musculoskeletal: Yes: Muscle Weakness (generalized) Edema: Yes Edema: LUE: 3+, RUE: 3+, LLE: Trace, RLE: Trace Peripheral Pulses WNL: Yes Integumentary: Yes: Pressure Ulcer (gradually healing stage II decubitus ulcer of the right buttock) Neurological: Yes: Alert, Oriented, Paresthesia (both hands), Unsteady Gait, Weakness ...Motor Strength: LUE (diminished), LLE (diminshed), RUE (diminshed), RLE ( diminished) Psychiatric: Yes: Alert, Oriented Labs: CBC, BMP 06/25/18 06:00 06/25/18 06:00 INR, PTT INR 1.12 (0.83-1.09) H 06/07/18 06:41 - ....Imaging Other: Report Reviewed (Lab data reviewed. Pulmonary note read and appreciated. ) Problem List - Problems (1) Lung mass Assessment/Plan: Palliative care Code(s): R91.8 - OTHER NONSPECIFIC ABNORMAL FINDING OF LUNG FIELD (2) Diabetes mellitus Assessment/Plan: Novolog 70/30 and novolog sliding scale coverage. Code(s): E11.9 - TYPE 2 DIABETES MELLITUS WITHOUT COMPLICATIONS (3) Deep venous thrombosis of axillary vein Assessment/Plan: Anticoagulation if no contraindications. Code(s): I82.A19 - ACUTE EMBOLISM AND THROMBOSIS OF UNSPECIFIED AXILLARY VEIN (4) Hypokalemia Assessment/Plan: IV KCL Code(s): E87.6 - HYPOKALEMIA (5) Acute hemorrhagic infarction of brain Assessment/Plan: Close observation. Code(s): I63.8 - OTHER CEREBRAL INFARCTION Assessment/Plan Plan: Poorly differentiated carcinoma of the right lung, gradual worsening of dyspnea and tachypnea, improved hypokalemia, improved hyponatremia, DVT, acute hemorrhagic stroke of the left parietal lobe, superior vena cava syndrome. IV fluids with KCL, 100% O2 via NRB mask, palliative care, prognosis very poor, discussed clinical condition of the patient with his .
--- NOTE | 2018-06-25 16:49 | PN ---
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 Idid discuss with patient , , and with daughter on cell loud speaker rosita , treatmetnt of immunotherapy if markers are positive. Alternative is chemotherpay. Patient and family aware that patient is not curable. This was re-iterated. Chemotherapy as option has a poor chance of success, and a large chance of toxicity including the hasteingin og patients . This was also discussed. At this time, patient will have pleurex catheter. If treatment is decided upon a port will be necessary . It may be beneficicial to await results of PDL-1 testing . Last Vital Signs Temp Pulse Resp BP Pulse Ox 97.8 F 116 H 20 149/98 95 06/25/18 10:00 06/25/18 10:00 06/25/18 10:00 06/25/18 10:00 06/25/18 10:00 HEENT: JOSÉ MIGUEL, EOM Intact Oropharynx: No thrush, No mucositis Neck: Supple Nodes: Without adenopathy Cor: RSR, No murmurs, No gallops Lungs: diminished breath sounds. Chest tube drainage Abd: Soft, Normal bowel sounds, No organomegaly Ext: significant edema--upper extremities Skin: No rashes, Integument intact CBC, BMP 06/25/18 06:00 06/25/18 06:00 Current Medications Generic Name Dose Route Start Last Admin Trade Name Freq PRN Reason Stop Dose Admin Albuterol/Ipratropium 1 amp 06/19/18 20:33 06/25/18 13:50 Duoneb - NEB 1 amp Q6H PRN Administration WHEEZING Atorvastatin Calcium 10 mg 06/12/18 22:00 06/24/18 22:05 Lipitor - PO 10 mg HS [facility] Administration Docusate Sodium 200 mg 06/07/18 22:00 06/24/18 22:05 Colace - PO 200 mg HS [facility] Administration IV Flush 4 ml 06/20/18 20:09 Triple Lumen Flush IVPUSH PRN PRN Protocol Potassium Chloride/Sodium Chloride 20 meq in 1,000 mls @ 50 mls/hr 06/24/18 13 :30 06/25/18 14:27 Ns+20 Meq Kcl - IV Not Given ASDIR [facility] Insulin Aspart 1 vial 06/16/18 11:20 06/25/18 11:25 Novolog Vial Sliding Scale - SQ Not Given ACHS [facility] Protocol Insulin Aspart 7 units 06/24/18 13:31 06/25/18 06:47 Novolog Mix 70/30 Vial SQ 7 units ACBK [facility] Administration Mirtazapine 15 mg 06/09/18 22:00 06/24/18 22:05 Remeron - PO 15 mg HS [facility] Administration Nystatin 500,000 units 06/14/18 12:00 06/25/18 11:50 Nystatin Oral Suspension - PO Not Given Q6HPO [facility] Pantoprazole Sodium 40 mg 06/08/18 16:30 06/25/18 10:20 Protonix - PO 40 mg DAILY [facility] Administration Polyethylene Glycol 17 gm 06/08/18 22:00 06/25/18 10:20 Miralax (For Daily Use) - PO 17 gm DAILY [facility] Administration Tramadol HCl 50 mg 06/20/18 13:45 06/21/18 13:45 Ultram - PO 50 mg Q8H PRN Administration PAIN LEVEL 4 - 6 Impression: Poorly differentiated ca Mets For pleurex Await PDL-1 Possible port
[2018-06-25] MEDS: ATORVASTATIN CA 10 MG TABLET (FP) PO SCH (21:20)
[2018-06-25] MEDS: DOCUSATE SODIUM 100 MG CAPSULE (FP) PO SCH (21:20)
[2018-06-25] MEDS: MIRTAZAPINE 15 MG TABLET (FP) PO SCH (21:20)
[2018-06-26] MEDS: NYSTATIN 500,000 UNITS/5 ML SUSPENSION PO SCH ×3 (05:11→18:25)
[2018-06-26] MEDS: SODIUM CHLORIDE 0.9%/KCL 20 MEQ/1,000 ML INFUS.BAG IV SCH ×3 (05:21→22:16)
[2018-06-26] MEDS: INSULIN SLIDING SCALE (NOVOLOG) 1 VIAL SQ SCH ×4 (06:02→22:15)
[2018-06-26] MEDS: INSULIN (NOVOLOG MIX 70/30) 100 UNITS/ML MDV SQ SCH ×2 (06:20→06:26)
[2018-06-26] MEDS: ALBUTEROL SO4 2.5/IPRATROPIUM 0.5 INH SOL 3 ML VIAL.NEB. NEB PRN ×2 (08:00→22:32)
[2018-06-26] MEDS ORDERED: PT OWN MED DRAWER 7, Y5N ONE (10:01)
[2018-06-26] MEDS: POLYETHYLENE GLYCOL 3350 119 GM BTL PO SCH (10:08)
[2018-06-26] MEDS: PANTOPRAZOLE 40 MG TABLET (FP) PO SCH (10:08)
--- NOTE | 2018-06-26 13:33 | PN ---
Progress Note, Physician History of Present Illness: PULMONARY SLEEPING ,-RESP DISTRESS, CHEST TUBE DRAINAGE 50cc - Current Medication List Current Medications: Active Medications Albuterol/Ipratropium (Duoneb -) 1 amp NEB Q6H PRN PRN Reason: WHEEZING Last Admin: 06/26/18 08:00 Dose: 1 amp Atorvastatin Calcium (Lipitor -) 10 mg PO HS [facility] Last Admin: 06/25/18 21:20 Dose: 10 mg Docusate Sodium (Colace -) 200 mg PO HS [facility] Last Admin: 06/25/18 21:20 Dose: 200 mg IV Flush (Triple Lumen Flush) 4 ml IVPUSH PRN PRN PRN Reason: Protocol Potassium Chloride/Sodium Chloride (Ns+20 Meq Kcl -) 20 meq in 1,000 mls @ 50 mls/hr IV ASDIR [facility] Last Admin: 06/26/18 05:21 Dose: 50 mls/hr Insulin Aspart (Novolog Vial Sliding Scale -) 1 vial SQ ACHS [facility]; Protocol Last Admin: 06/26/18 06:02 Dose: Not Given Insulin Aspart (Novolog Mix 70/30 Vial) 7 units SQ ACBK [facility] Last Admin: 06/26/18 06:26 Dose: Not Given Mirtazapine (Remeron -) 15 mg PO HS [facility] Last Admin: 06/25/18 21:20 Dose: 15 mg Nystatin (Nystatin Oral Suspension -) 500,000 units PO Q6HPO [facility] Last Admin: 06/26/18 05:11 Dose: 500,000 units Pantoprazole Sodium (Protonix -) 40 mg PO DAILY [facility] Last Admin: 06/26/18 10:08 Dose: 40 mg Polyethylene Glycol (Miralax (For Daily Use) -) 17 gm PO DAILY [facility] Last Admin: 06/26/18 10:08 Dose: 17 gm - Objective Vital Signs: Vital Signs Temperature 97.8 F 06/26/18 06:00 Pulse Rate 106 H 06/26/18 06:00 Respiratory Rate 20 06/26/18 06:00 Blood Pressure 135/80 06/26/18 06:00 O2 Sat by Pulse Oximetry (%) 95 06/25/18 21:00 Constitutional: Yes: Well Nourished, Other (SLEEPING) Eyes: Yes: WNL HENT: Yes: WNL Neck: Yes: WNL Cardiovascular: Yes: Regular Rate and Rhythm, S1, S2 Respiratory: Yes: Rhonchi (FEW RHONCHI) Gastrointestinal: Yes: Normal Bowel Sounds, Soft Extremities: Yes: WNL Edema: No Labs: CBC, BMP Assessment/Plan Problem List - Problems (1) COPD (chronic obstructive pulmonary disease) Code(s): J44.9 - CHRONIC OBSTRUCTIVE PULMONARY DISEASE, UNSPECIFIED (2) Pleural effusion Code(s): J90 - PLEURAL EFFUSION, NOT ELSEWHERE CLASSIFIED EXUDATE BY ALBUMIN GRADIENT CRITERIA (3) Hilar mass Code(s): R91.8 - OTHER NONSPECIFIC ABNORMAL FINDING OF LUNG FIELD (4) Hyponatremia Code(s): E87.1 - HYPO-OSMOLALITY AND HYPONATREMIA (5) Liver metastasis Code(s): C78.7 - SECONDARY MALIG NEOPLASM OF LIVER AND INTRAHEPATIC BILE DUCT (6) Lung mass Code(s): R91.8 - OTHER NONSPECIFIC ABNORMAL FINDING OF LUNG FIELD (7) Poor appetite Code(s): R63.0 - ANOREXIA (8) Superior vena cava compression syndrome Code(s): I87.1 - COMPRESSION OF VEIN 9. R parietal cva 10 R PTX TRAPPED LUNG 11 , METASTATIC CA Assessment/PLAN O2 as needed BD TX PRN chest x-rays palliative care prognosis very poor DR MADRID
--- NOTE | 2018-06-26 13:37 | PN ---
Progress Note, Physician Chief Complaint: Dyspneic and tachypneic at rest, easy fatigability, loss of appetite. History of Present Illness: This 73 yr old w/m with hx of hypertension and type 2 diabetes admitted via ER with acute generalized muscle weakness, anorexia, abnormal weight loss, acute hyponatremia, acute hypokalemia, lung mass in the right upper lobe with distant metastases, right pleural effusion, three masses in the liver, acute hemorrhagic stroke of the left parietal lobe, DVT and superior vena cava syndrome. - Current Medication List Current Medications: Active Medications Albuterol/Ipratropium (Duoneb -) 1 amp NEB Q6H PRN PRN Reason: WHEEZING Last Admin: 06/26/18 08:00 Dose: 1 amp Atorvastatin Calcium (Lipitor -) 10 mg PO HS [facility] Last Admin: 06/25/18 21:20 Dose: 10 mg Docusate Sodium (Colace -) 200 mg PO HS [facility] Last Admin: 06/25/18 21:20 Dose: 200 mg IV Flush (Triple Lumen Flush) 4 ml IVPUSH PRN PRN PRN Reason: Protocol Potassium Chloride/Sodium Chloride (Ns+20 Meq Kcl -) 20 meq in 1,000 mls @ 50 mls/hr IV ASDIR [facility] Last Admin: 06/26/18 05:21 Dose: 50 mls/hr Insulin Aspart (Novolog Vial Sliding Scale -) 1 vial SQ ACHS [facility]; Protocol Last Admin: 06/26/18 06:02 Dose: Not Given Insulin Aspart (Novolog Mix 70/30 Vial) 7 units SQ ACBK [facility] Last Admin: 06/26/18 06:26 Dose: Not Given Mirtazapine (Remeron -) 15 mg PO HS [facility] Last Admin: 06/25/18 21:20 Dose: 15 mg Nystatin (Nystatin Oral Suspension -) 500,000 units PO Q6HPO [facility] Last Admin: 06/26/18 05:11 Dose: 500,000 units Pantoprazole Sodium (Protonix -) 40 mg PO DAILY [facility] Last Admin: 06/26/18 10:08 Dose: 40 mg Polyethylene Glycol (Miralax (For Daily Use) -) 17 gm PO DAILY [facility] Last Admin: 06/26/18 10:08 Dose: 17 gm - Objective Vital Signs: Vital Signs Temperature 97.8 F 06/26/18 06:00 Pulse Rate 106 H 06/26/18 06:00 Respiratory Rate 20 06/26/18 06:00 Blood Pressure 135/80 06/26/18 06:00 O2 Sat by Pulse Oximetry (%) 95 06/25/18 21:00 Constitutional: Yes: Well Nourished, Moderate Distress, Other (easy fatigability ) Eyes: Yes: Conjunctiva Clear, EOM Intact HENT: Yes: Atraumatic, Normocephalic Neck: Yes: Supple, Trachea Midline Cardiovascular: Yes: Regular Rate and Rhythm Respiratory: Yes: Regular, Cough, Diminished (right lung), Dullness (right lung) , On Venti-Mask, SOB, Tachypnea Gastrointestinal: Yes: Normal Bowel Sounds, Soft ...Rectal Exam: Yes: Deferred Genitourinary: Yes: WNL Breast(s): Yes: WNL Musculoskeletal: Yes: Muscle Weakness (generalized) Extremities: Yes: Cool Edema: Yes Edema: LUE: 3+, RUE: 3+, LLE: Trace, RLE: Trace Peripheral Pulses WNL: Yes Integumentary: Yes: Pressure Ulcer (gradually healing stage II pressure ulcer of the right buttock) Neurological: Yes: Alert, Oriented, Unsteady Gait, Weakness ...Motor Strength: LUE (muscle weakness), LLE (muscle weakness), RUE (muscle weakness), RLE (muscle weakness) Psychiatric: Yes: Alert, Oriented Labs: CBC, BMP 06/25/18 06:00 06/25/18 06:00 INR, PTT INR 1.12 (0.83-1.09) H 06/07/18 06:41 - ....Imaging Other: Report Reviewed (Lab data reviewed. Oncology note read and appreciated) Problem List - Problems (1) Lung mass Assessment/Plan: To be scheduled for pleural biopsy, PDL-1 staining and possible immunotherapy. Code(s): R91.8 - OTHER NONSPECIFIC ABNORMAL FINDING OF LUNG FIELD (2) Diabetes mellitus Assessment/Plan: Novolog 70/30 and novolog sliding scale coverage. Code(s): E11.9 - TYPE 2 DIABETES MELLITUS WITHOUT COMPLICATIONS (3) Deep venous thrombosis of axillary vein Assessment/Plan: Anticoagulation if no contraindications. Code(s): I82.A19 - ACUTE EMBOLISM AND THROMBOSIS OF UNSPECIFIED AXILLARY VEIN (4) Hypokalemia Assessment/Plan: IV KCL Code(s): E87.6 - HYPOKALEMIA (5) Acute hemorrhagic infarction of brain Assessment/Plan: Close observation. Code(s): I63.8 - OTHER CEREBRAL INFARCTION Assessment/Plan Plan: Poorly differentiated carcinoma of the lung, acute hemorrhagic stroke of the left parietal lobe, improved hypokalemia and hyponatremia. IV fluids with KCL, 100% oxygen via NRB venti mask, to be scheduled for pleural biopsy, possible immunotherapy following PDL-1 staining. Prognosis very poor. Discussed clinical condition of the patient with his .
[2018-06-26] MEDS: DOCUSATE SODIUM 100 MG CAPSULE (FP) PO SCH (22:07)
[2018-06-26] MEDS: MIRTAZAPINE 15 MG TABLET (FP) PO SCH (22:08)
[2018-06-26] MEDS: ATORVASTATIN CA 10 MG TABLET (FP) PO SCH (22:08)
[2018-06-27] MEDS: NYSTATIN 500,000 UNITS/5 ML SUSPENSION PO SCH ×4 (00:13→17:03)
[2018-06-27] MEDS: INSULIN (NOVOLOG MIX 70/30) 100 UNITS/ML MDV SQ SCH (06:00)
[2018-06-27] MEDS: INSULIN SLIDING SCALE (NOVOLOG) 1 VIAL SQ SCH ×4 (06:00→22:07)
[2018-06-27 06:31] LABS: BASO % 0.4 % (0-2.0); EOS % 3.4 % (0-4.5); HEMATOCRIT 33.3 % (35.4-49); HEMOGLOBIN 10.9 GM/dL (11.7-16.9); LYMPH % 5.3 % (8-40); MCH 26.7 pg (25.7-33.7); MCHC 32.7 g/dl (32.0-35.9); MEAN CELL VOLUME 81.6 fl (80-96); MEAN PLT VOLUME 7.3 fl (7.5-11.1); MONO % 6.1 % (3.8-10.2); NEUT % 84.8 % (42.8-82.8); PLATELET COUNT 148 K/MM3 (134-434); RBC 4.08 M/mm3 (4.00-5.60); RDW 17.1 % (11.9-15.9); WHITE BLOOD COUNT 11.8 K/mm3 (4.0-10.0)
[2018-06-27 07:08] LABS: CHLORIDE 101 mmol/L (98-107); SODIUM 134 mmol/L (136-145)
[2018-06-27 07:19] LABS: ALK PHOS 121 U/L (45-117); ANION GAP 7 MMOL/L (8-16); BILIRUBIN,TOTAL 0.6 mg/dL (0.2-1.0); BLOOD UREA NITROGEN 7 mg/dL (7-18); CALCIUM 7.5 mg/dL (8.5-10.1); CO2 26 mmol/L (21-32); CREATININE 0.3 mg/dL (0.7-1.3); GLUCOSE,RANDOM 142 mg/dL (74-106); SGOT/AST 22 U/L (15-37); SGPT/ALT 36 U/L (13-61); TOT PROT 5.1 g/dl (6.4-8.2)
[2018-06-27] MEDS: PANTOPRAZOLE 40 MG TABLET (FP) PO SCH (11:06)
[2018-06-27] MEDS: POLYETHYLENE GLYCOL 3350 119 GM BTL PO SCH (11:06)
--- NOTE | 2018-06-27 12:57 | PN ---
Progress Note, Physician Chief Complaint: Dyspneic and tachypneic at rest, difficulty in swallowing, more and more lethargic, easy fatigability, generalized muscle weakness. 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 - Current Medication List Current Medications: Active Medications Albuterol/Ipratropium (Duoneb -) 1 amp NEB Q6H PRN PRN Reason: WHEEZING Last Admin: 06/26/18 22:32 Dose: 1 amp Atorvastatin Calcium (Lipitor -) 10 mg PO HS [facility] Last Admin: 06/26/18 22:08 Dose: 10 mg Docusate Sodium (Colace -) 200 mg PO HS [facility] Last Admin: 06/26/18 22:07 Dose: Not Given IV Flush (Triple Lumen Flush) 4 ml IVPUSH PRN PRN PRN Reason: Protocol Potassium Chloride/Sodium Chloride (Ns+20 Meq Kcl -) 20 meq in 1,000 mls @ 50 mls/hr IV ASDIR [facility] Last Admin: 06/26/18 22:16 Dose: 50 mls/hr Insulin Aspart (Novolog Vial Sliding Scale -) 1 vial SQ ACHS [facility]; Protocol Last Admin: 06/27/18 11:18 Dose: Not Given Insulin Aspart (Novolog Mix 70/30 Vial) 7 units SQ ACBK [facility] Last Admin: 06/27/18 06:00 Dose: Not Given Mirtazapine (Remeron -) 15 mg PO HS [facility] Last Admin: 06/26/18 22:08 Dose: 15 mg Nystatin (Nystatin Oral Suspension -) 500,000 units PO Q6HPO [facility] Last Admin: 06/27/18 11:06 Dose: 500,000 units Pantoprazole Sodium (Protonix -) 40 mg PO DAILY [facility] Last Admin: 06/27/18 11:06 Dose: 40 mg Polyethylene Glycol (Miralax (For Daily Use) -) 17 gm PO DAILY [facility] Last Admin: 06/27/18 11:06 Dose: 17 gm - Objective Vital Signs: Vital Signs Temperature 97.6 F 06/27/18 05:56 Pulse Rate 115 H 06/27/18 05:56 Respiratory Rate 20 06/27/18 10:00 Blood Pressure 113/66 06/27/18 05:56 O2 Sat by Pulse Oximetry (%) 97 06/27/18 10:00 Constitutional: Yes: Well Nourished, Moderate Distress Eyes: Yes: Conjunctiva Clear, EOM Intact HENT: Yes: Atraumatic, Normocephalic Neck: Yes: Trachea Midline, Other (swelling of the neck) Cardiovascular: Yes: Regular Rate and Rhythm Respiratory: Yes: Accessory Muscle Use, Cough, Diminished (right lung), Dullness (right lung), On Venti-Mask, Rhonchi, SOB, Tachypnea Gastrointestinal: Yes: Normal Bowel Sounds, Soft ...Rectal Exam: Yes: Deferred Genitourinary: Yes: WNL Breast(s): Yes: WNL Musculoskeletal: Yes: Muscle Weakness (generalized) Extremities: Yes: Cool Edema: Yes Edema: LUE: 3+, RUE: 3+, LLE: Trace, RLE: Trace Peripheral Pulses WNL: Yes Integumentary: Yes: Pressure Ulcer (stage II of the right buttock, gradually healing.) Neurological: Yes: Alert, Oriented, Unsteady Gait, Weakness ...Motor Strength: LUE (muscle weakness), LLE (muscle weakness), RUE (muscle weakness), RLE (muscle weakness) Psychiatric: Yes: Alert, Oriented Labs: CBC, BMP 06/27/18 05:50 06/27/18 05:50 INR, PTT INR 1.12 (0.83-1.09) H 06/07/18 06:41 - ....Imaging Other: Report Reviewed (Lab data reviewed.) Problem List - Problems (1) Lung mass Assessment/Plan: To be scheduled for pleural biopsy, treatment as per Oncologist. Code(s): R91.8 - OTHER NONSPECIFIC ABNORMAL FINDING OF LUNG FIELD (2) Diabetes mellitus Assessment/Plan: Novolog 70/30 and novolog sliding scale coverage. Code(s): E11.9 - TYPE 2 DIABETES MELLITUS WITHOUT COMPLICATIONS (3) Deep venous thrombosis of axillary vein Assessment/Plan: Anticoagulation if no contraindications. Code(s): I82.A19 - ACUTE EMBOLISM AND THROMBOSIS OF UNSPECIFIED AXILLARY VEIN (4) Hypokalemia Assessment/Plan: IV KCL Code(s): E87.6 - HYPOKALEMIA (5) Acute hemorrhagic infarction of brain Assessment/Plan: Close observation. Code(s): I63.8 - OTHER CEREBRAL INFARCTION Assessment/Plan Plan: Non-small cell poorly differentiated carcinoma of lung, hyponatremia, hypokalemia, hypomagnesemia, DVT, superior vena cava syndrome. IV fluids with KCL, 100% oxygen via NRB venti-mask, to be scheduled for pleural biopsy, possible immunotherapy, discussed clinical condition of the patient with his Debbie, prognosis very poor.
--- NOTE | 2018-06-27 14:05 | PN ---
Progress Note (short form) - Note Progress Note: PULMONARY Remains on NRB. Chest tube draining serous fluid. More lethargic today. Vital Signs Period Temp Pulse Resp BP Sys/Garcia Pulse Ox Last 24 Hr 97.4 F-97.6 F 108-116 20-24 113-143/66-88 97-97 Intake & Output 06/24/18 06/25/18 06/26/18 06/27/18 23:59 23:59 23:59 23:59 Intake Total 1254 2200 1450 350 Output Total 95 50 50 550 Balance 1159 2150 1400 -200 Gen: tachypneic at rest Heart: RRR Lung: decreased breath sounds right Abd: soft, nontender Ext: + edema Chest tube: serous fluid, no air leak CBC, BMP 06/27/18 05:50 06/27/18 05:50 Active Medications Albuterol/Ipratropium (Duoneb -) 1 amp NEB Q6H PRN PRN Reason: WHEEZING Last Admin: 06/26/18 22:32 Dose: 1 amp Atorvastatin Calcium (Lipitor -) 10 mg PO HS [facility] Last Admin: 06/26/18 22:08 Dose: 10 mg Docusate Sodium (Colace -) 200 mg PO HS [facility] Last Admin: 06/26/18 22:07 Dose: Not Given IV Flush (Triple Lumen Flush) 4 ml IVPUSH PRN PRN PRN Reason: Protocol Potassium Chloride/Sodium Chloride (Ns+20 Meq Kcl -) 20 meq in 1,000 mls @ 50 mls/hr IV ASDIR [facility] Last Admin: 06/26/18 22:16 Dose: 50 mls/hr Insulin Aspart (Novolog Vial Sliding Scale -) 1 vial SQ ACHS [facility]; Protocol Last Admin: 06/27/18 11:18 Dose: Not Given Insulin Aspart (Novolog Mix 70/30 Vial) 7 units SQ ACBK [facility] Last Admin: 06/27/18 06:00 Dose: Not Given Mirtazapine (Remeron -) 15 mg PO HS [facility] Last Admin: 06/26/18 22:08 Dose: 15 mg Nystatin (Nystatin Oral Suspension -) 500,000 units PO Q6HPO [facility] Last Admin: 06/27/18 11:06 Dose: 500,000 units Pantoprazole Sodium (Protonix -) 40 mg PO DAILY [facility] Last Admin: 06/27/18 11:06 Dose: 40 mg Polyethylene Glycol (Miralax (For Daily Use) -) 17 gm PO DAILY [facility] Last Admin: 06/27/18 11:06 Dose: 17 gm A/P Likely Metastatic Lung Ca Pleural Effusion s/p CT guided needle biopsy Pneumothorax vs Trapped Lung COPD Acute CVA BPH HTN DM - discussions ongoing about treatment including pleur-x catheter placement and pleural biopsy - inhaled bronchodilators - O2 to keep SpO2 >90% - DVT prophylaxis - poor overall prognosis
[2018-06-27] MEDS: ALBUTEROL SO4 2.5/IPRATROPIUM 0.5 INH SOL 3 ML VIAL.NEB. NEB PRN ×2 (15:55→20:55)
[2018-06-27] MEDS: SODIUM CHLORIDE 0.9%/KCL 20 MEQ/1,000 ML INFUS.BAG IV SCH (17:05)
[2018-06-27] MEDS: ATORVASTATIN CA 10 MG TABLET (FP) PO SCH (22:06)
[2018-06-27] MEDS: MIRTAZAPINE 15 MG TABLET (FP) PO SCH (22:06)
[2018-06-27] MEDS: DOCUSATE SODIUM 100 MG CAPSULE (FP) PO SCH (22:07)
[2018-06-28] MEDS: NYSTATIN 500,000 UNITS/5 ML SUSPENSION PO SCH ×5 (00:05→23:04)
[2018-06-28] MEDS: INSULIN SLIDING SCALE (NOVOLOG) 1 VIAL SQ SCH ×4 (06:17→22:08)
[2018-06-28] MEDS: INSULIN (NOVOLOG MIX 70/30) 100 UNITS/ML MDV SQ SCH (06:17)
[2018-06-28 06:29] LABS: BASO % 0.6 % (0-2.0); EOS % 2.8 % (0-4.5); HEMATOCRIT 35.2 % (35.4-49); HEMOGLOBIN 11.4 GM/dL (11.7-16.9); LYMPH % 5.9 % (8-40); MCH 26.5 pg (25.7-33.7); MCHC 32.3 g/dl (32.0-35.9); MEAN CELL VOLUME 82.1 fl (80-96); MEAN PLT VOLUME 7.2 fl (7.5-11.1); MONO % 6.3 % (3.8-10.2); NEUT % 84.4 % (42.8-82.8); PLATELET COUNT 180 K/MM3 (134-434); RBC 4.29 M/mm3 (4.00-5.60); RDW 16.9 % (11.9-15.9); WHITE BLOOD COUNT 13.2 K/mm3 (4.0-10.0)
[2018-06-28 06:41] LABS: ANION GAP 14 MMOL/L (8-16); BLOOD UREA NITROGEN 8 mg/dL (7-18); CALCIUM 7.8 mg/dL (8.5-10.1); CHLORIDE 103 mmol/L (98-107); CO2 22 mmol/L (21-32); CREATININE 0.3 mg/dL (0.55-1.3); GLUCOSE,RANDOM 130 mg/dL (74-106); MAGNESIUM 1.9 mg/dL (1.8-2.4); POTASSIUM 4.1 mmol/L (3.5-5.1); SODIUM 139 mmol/L (136-145)
--- NOTE | 2018-06-28 09:31 | PN ---
Progress Note, Physician Chief Complaint: Dyspneic and tachypneic at rest, easy fatigability, difficulty in swallowing. 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 - Current Medication List Current Medications: Active Medications Albuterol/Ipratropium (Duoneb -) 1 amp NEB Q6H PRN PRN Reason: WHEEZING Last Admin: 06/27/18 20:55 Dose: 1 amp Atorvastatin Calcium (Lipitor -) 10 mg PO HS [facility] Last Admin: 06/27/18 22:06 Dose: 10 mg Docusate Sodium (Colace -) 200 mg PO HS [facility] Last Admin: 06/27/18 22:07 Dose: Not Given IV Flush (Triple Lumen Flush) 4 ml IVPUSH PRN PRN PRN Reason: Protocol Potassium Chloride/Sodium Chloride (Ns+20 Meq Kcl -) 20 meq in 1,000 mls @ 50 mls/hr IV ASDIR [facility] Last Admin: 06/27/18 17:05 Dose: Not Given Insulin Aspart (Novolog Vial Sliding Scale -) 1 vial SQ ACHS [facility]; Protocol Last Admin: 06/28/18 06:17 Dose: Not Given Insulin Aspart (Novolog Mix 70/30 Vial) 7 units SQ ACBK [facility] Last Admin: 06/28/18 06:17 Dose: Not Given Mirtazapine (Remeron -) 15 mg PO HS [facility] Last Admin: 06/27/18 22:06 Dose: 15 mg Nystatin (Nystatin Oral Suspension -) 500,000 units PO Q6HPO [facility] Last Admin: 06/28/18 06:17 Dose: Not Given Pantoprazole Sodium (Protonix -) 40 mg PO DAILY [facility] Last Admin: 06/27/18 11:06 Dose: 40 mg Polyethylene Glycol (Miralax (For Daily Use) -) 17 gm PO DAILY [facility] Last Admin: 06/27/18 11:06 Dose: 17 gm - Objective Vital Signs: Vital Signs Temperature 97.6 F 06/28/18 05:42 Pulse Rate 120 H 06/28/18 05:42 Respiratory Rate 24 09/14/18 05:42 Blood Pressure 161/96 06/28/18 05:42 O2 Sat by Pulse Oximetry (%) 97 06/27/18 21:00 Constitutional: Yes: Well Nourished, Moderate Distress, Other (lethargic) Eyes: Yes: Conjunctiva Clear, EOM Intact HENT: Yes: Atraumatic, Normocephalic Neck: Yes: Other (swelling of the neck, superior vena cava syndrome) Cardiovascular: Yes: Regular Rate and Rhythm Respiratory: Yes: Accessory Muscle Use, Cough, Diminished (right lung), Dullness (right lung), On Venti-Mask, Rhonchi, SOB, Tachypnea Gastrointestinal: Yes: Normal Bowel Sounds, Soft ...Rectal Exam: Yes: Deferred Genitourinary: Yes: WNL Breast(s): Yes: WNL Musculoskeletal: Yes: Muscle Weakness (generalized) Edema: Yes Edema: LUE: 3+, RUE: 3+, LLE: Trace, RLE: Trace Peripheral Pulses WNL: Yes Integumentary: Yes: Pressure Ulcer (stage II of the right buttock) Neurological: Yes: Alert, Oriented, Unsteady Gait, Weakness ...Motor Strength: LUE (diminished), LLE (diminished), RUE (diminished), RLE ( diminished) Psychiatric: Yes: Alert, Oriented Labs: CBC, BMP 06/28/18 06:00 06/28/18 06:00 INR, PTT INR 1.12 (0.83-1.09) H 06/07/18 06:41 - ....Imaging Other: Report Reviewed (Lab data reviewed) Problem List - Problems (1) Lung mass Assessment/Plan: Palliative care Code(s): R91.8 - OTHER NONSPECIFIC ABNORMAL FINDING OF LUNG FIELD (2) Diabetes mellitus Assessment/Plan: Novolog 70/30 and novolog sliding scale coverage Code(s): E11.9 - TYPE 2 DIABETES MELLITUS WITHOUT COMPLICATIONS (3) Deep venous thrombosis of axillary vein Assessment/Plan: Anticoagulation if no contraindications Code(s): I82.A19 - ACUTE EMBOLISM AND THROMBOSIS OF UNSPECIFIED AXILLARY VEIN (4) Hypokalemia Assessment/Plan: IV KCL Code(s): E87.6 - HYPOKALEMIA (5) Acute hemorrhagic infarction of brain Assessment/Plan: Close observation Code(s): I63.8 - OTHER CEREBRAL INFARCTION Assessment/Plan Plan: Non-small cell poorly differentiated carcinoma of the right lung, acute hemorrhagic stroke of the left parietal lobe, DVT, superior vena cava syndrome. IV fluids with KCL, 100% oxygen via NRB venti-mask, pleural catheter placement and pleural biopsy, referral to palliative care team, prognosis very poor, discussed clinical condition of the patient with son Timoteo.
[2018-06-28] MEDS: PANTOPRAZOLE 40 MG TABLET (FP) PO SCH (09:51)
[2018-06-28] MEDS: POLYETHYLENE GLYCOL 3350 119 GM BTL PO SCH (11:59)
--- NOTE | 2018-06-28 12:42 | PN ---
Progress Note, Physician History of Present Illness: pulmonary more awake,on 100% nrbm,less dyspneic,chest tube drainage 70cc - Current Medication List Current Medications: Active Medications Albuterol/Ipratropium (Duoneb -) 1 amp NEB Q6H PRN PRN Reason: WHEEZING Last Admin: 06/27/18 20:55 Dose: 1 amp Atorvastatin Calcium (Lipitor -) 10 mg PO HS [facility] Last Admin: 06/27/18 22:06 Dose: 10 mg Docusate Sodium (Colace -) 200 mg PO HS [facility] Last Admin: 06/27/18 22:07 Dose: Not Given IV Flush (Triple Lumen Flush) 4 ml IVPUSH PRN PRN PRN Reason: Protocol Potassium Chloride/Sodium Chloride (Ns+20 Meq Kcl -) 20 meq in 1,000 mls @ 50 mls/hr IV ASDIR [facility] Last Admin: 06/27/18 17:05 Dose: Not Given Insulin Aspart (Novolog Vial Sliding Scale -) 1 vial SQ ACHS [facility]; Protocol Last Admin: 06/28/18 11:51 Dose: Not Given Insulin Aspart (Novolog Mix 70/30 Vial) 7 units SQ [facility]BK [facility] Last Admin: 06/28/18 06:17 Dose: Not Given Mirtazapine (Remeron -) 15 mg PO HS [facility] Last Admin: 06/27/18 22:06 Dose: 15 mg Nystatin (Nystatin Oral Suspension -) 500,000 units PO Q6HPO [facility] Last Admin: 06/28/18 11:51 Dose: 500,000 units Pantoprazole Sodium (Protonix -) 40 mg PO DAILY [facility] Last Admin: 06/28/18 09:51 Dose: 40 mg Polyethylene Glycol (Miralax (For Daily Use) -) 17 gm PO DAILY [facility] Last Admin: 06/28/18 11:59 Dose: 17 gm - Objective Vital Signs: Vital Signs Temperature 97.6 F 06/28/18 05:42 Pulse Rate 120 H 06/28/18 05:42 Respiratory Rate 24 06/28/18 05:42 Blood Pressure 161/96 06/28/18 05:42 O2 Sat by Pulse Oximetry (%) 97 06/27/18 21:00 Constitutional: Yes: Calm, Obese Eyes: Yes: WNL HENT: Yes: WNL Neck: Yes: WNL Cardiovascular: Yes: Regular Rate and Rhythm, S1, S2 Respiratory: Yes: Diminished Gastrointestinal: Yes: Normal Bowel Sounds, Soft Extremities: Yes: WNL Edema: No Labs: CBC, BMP 06/28/18 06:00 06/28/18 06:00 INR, PTT INR 1.12 (0.83-1.09) H 06/07/18 06:41 Assessment/Plan Problem List - Problems (1) COPD (chronic obstructive pulmonary disease) Code(s): J44.9 - CHRONIC OBSTRUCTIVE PULMONARY DISEASE, UNSPECIFIED (2) Pleural effusion Code(s): J90 - PLEURAL EFFUSION, NOT ELSEWHERE CLASSIFIED EXUDATE BY ALBUMIN GRADIENT CRITERIA (3) Hilar mass Code(s): R91.8 - OTHER NONSPECIFIC ABNORMAL FINDING OF LUNG FIELD (4) Hyponatremia Code(s): E87.1 - HYPO-OSMOLALITY AND HYPONATREMIA (5) Liver metastasis Code(s): C78.7 - SECONDARY MALIG NEOPLASM OF LIVER AND INTRAHEPATIC BILE DUCT (6) Lung mass Code(s): R91.8 - OTHER NONSPECIFIC ABNORMAL FINDING OF LUNG FIELD (7) Poor appetite Code(s): R63.0 - ANOREXIA (8) Superior vena cava compression syndrome Code(s): I87.1 - COMPRESSION OF VEIN 9. R parietal cva 10 R PTX TRAPPED LUNG 11 , METASTATIC CA Assessment/PLAN O2 as needed BD TX PRN chest x-rays palliative care prognosis very poor DR MADRID
[2018-06-28] MEDS: SODIUM CHLORIDE 0.9%/KCL 20 MEQ/1,000 ML INFUS.BAG IV SCH (15:32)
--- NOTE | 2018-06-28 15:40 | PN ---
Progress Note (short form) - Note Progress Note: Patient seen and examined Continued downhill course Poor performance status 100% -oxygen dependent - PATIENT IS NOT A CANDIDATE FOR SYSTEMIC THERAPY INCLUDING IMMUNOTHERAPY AND WOULD BE BEST SERVED IN A HOSPITAL HOSPICE ([facility]). Have tried to speak with - not in hospital or at home . Will try and re- contact to inform.
--- NOTE | 2018-06-28 15:54 | PN ---
Progress Note (short form) - Note Progress Note: Spoke with and discussed [facility]. She unfortunately understands circumstances.
[2018-06-28] MEDS: DOCUSATE SODIUM 100 MG CAPSULE (FP) PO SCH (21:58)
[2018-06-28] MEDS: MIRTAZAPINE 15 MG TABLET (FP) PO SCH (22:07)
[2018-06-28] MEDS: ATORVASTATIN CA 10 MG TABLET (FP) PO SCH (22:07)
[2018-06-29] MEDS: NYSTATIN 500,000 UNITS/5 ML SUSPENSION PO SCH (05:46)
[2018-06-29] MEDS: INSULIN SLIDING SCALE (NOVOLOG) 1 VIAL SQ SCH ×4 (06:00→22:12)
[2018-06-29] MEDS: INSULIN (NOVOLOG MIX 70/30) 100 UNITS/ML MDV SQ SCH (06:00)
--- NOTE | 2018-06-29 09:16 | PN ---
Progress Note, Physician Chief Complaint: Dyspneic and tachypneic at rest, easy fatigability, generalized muscle weakness , difficulty in swallowing. - Current Medication List Current Medications: Active Medications Albuterol/Ipratropium (Duoneb -) 1 amp NEB Q6H PRN PRN Reason: WHEEZING Last Admin: 06/27/18 20:55 Dose: 1 amp Atorvastatin Calcium (Lipitor -) 10 mg PO [facility] Last Admin: 06/28/18 22:07 Dose: 10 mg Docusate Sodium (Colace -) 200 mg PO [facility] Last Admin: 06/28/18 21:58 Dose: Not Given IV Flush (Triple Lumen Flush) 4 ml IVPUSH PRN PRN PRN Reason: Protocol Potassium Chloride/Sodium Chloride (Ns+20 Meq Kcl -) 20 meq in 1,000 mls @ 50 mls/hr IV ASDIR [facility] Last Admin: 06/28/18 15:32 Dose: 50 mls/hr Insulin Aspart (Novolog Vial Sliding Scale -) 1 vial SQ ACHS [facility]; Protocol Last Admin: 06/29/18 06:00 Dose: Not Given Insulin Aspart (Novolog Mix 70/30 Vial) 7 units SQ ACBK [facility] Last Admin: 06/29/18 06:00 Dose: Not Given Mirtazapine (Remeron -) 15 mg PO [facility] Last Admin: 06/28/18 22:07 Dose: 15 mg Nystatin (Nystatin Oral Suspension -) 500,000 units PO Q6HPO [facility] Last Admin: 06/29/18 05:46 Dose: 500,000 units Pantoprazole Sodium (Protonix -) 40 mg PO DAILY [facility] Last Admin: 06/28/18 09:51 Dose: 40 mg Polyethylene Glycol (Miralax (For Daily Use) -) 17 gm PO DAILY [facility] Last Admin: 06/28/18 11:59 Dose: 17 gm - Objective Vital Signs: Vital Signs Temperature 97.3 F L 06/29/18 06:00 Pulse Rate 120 H 06/29/18 06:00 Respiratory Rate 24 06/29/18 06:00 Blood Pressure 144/83 06/29/18 06:00 O2 Sat by Pulse Oximetry (%) 97 06/28/18 20:59 Constitutional: Yes: Well Nourished, Moderate Distress, Other (easy fatigability ) Eyes: Yes: Conjunctiva Clear, EOM Intact HENT: Yes: Atraumatic, Normocephalic, Other (swelling of the neck) Neck: Yes: Trachea Midline, Other (edema of the neck) Cardiovascular: Yes: Regular Rate and Rhythm Respiratory: Yes: Accessory Muscle Use, Cough, Diminished (right lung), Dullness (right lung), On Venti-Mask, Rhonchi, SOB, Tachypnea Gastrointestinal: Yes: Normal Bowel Sounds, Soft ...Rectal Exam: Yes: Deferred Genitourinary: Yes: WNL Breast(s): Yes: WNL Musculoskeletal: Yes: Muscle Weakness (generalized) Edema: Yes Edema: LUE: 3+, RUE: 3+ Peripheral Pulses WNL: Yes Integumentary: Yes: Pressure Ulcer (stage II of the right buttock) Neurological: Yes: Alert, Oriented, Unsteady Gait, Weakness, Other ( intermittently very lethargic) ...Motor Strength: LUE (diminished), LLE (diminished), RUE (diminished), RLE ( diminished) Psychiatric: Yes: Alert, Oriented Labs: CBC, BMP 06/28/18 06:00 06/28/18 06:00 INR, PTT INR 1.12 (0.83-1.09) H 06/07/18 06:41 - ....Imaging Other: Report Reviewed (Lab data reviewed. Consult notes read and appreciated.) Problem List - Problems (1) Lung mass Assessment/Plan: Palliative care. Code(s): R91.8 - OTHER NONSPECIFIC ABNORMAL FINDING OF LUNG FIELD (2) Diabetes mellitus Assessment/Plan: Novolog 70/30 and novolog sliding scale coverage Code(s): E11.9 - TYPE 2 DIABETES MELLITUS WITHOUT COMPLICATIONS (3) Deep venous thrombosis of axillary vein Assessment/Plan: Anticoagulation if no contraindications Code(s): I82.A19 - ACUTE EMBOLISM AND THROMBOSIS OF UNSPECIFIED AXILLARY VEIN (4) Hypokalemia Assessment/Plan: IV KCL Code(s): E87.6 - HYPOKALEMIA (5) Acute hemorrhagic infarction of brain Assessment/Plan: Close observation Code(s): I63.8 - OTHER CEREBRAL INFARCTION Assessment/Plan Plan: 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
[2018-06-29] MEDS: PANTOPRAZOLE 40 MG TABLET (FP) PO SCH (09:39)
[2018-06-29] MEDS: POLYETHYLENE GLYCOL 3350 119 GM BTL PO SCH (09:39)
[2018-06-29] MEDS: SODIUM CHLORIDE 0.9%/KCL 20 MEQ/1,000 ML INFUS.BAG IV SCH (12:34)
--- NOTE | 2018-06-29 12:57 | PN ---
Progress Note (short form) - Note Progress Note: Remains tachypneic on 100% NRBM. No improvement in overall condition. Intake & Output 06/26/18 06/27/18 06/28/18 06/29/18 23:59 23:59 23:59 23:59 Intake Total 2109 040 6157 350 Output Total 50 650 100 10 Balance 1400 0 1550 340 Last Vital Signs Temp Pulse Resp BP Pulse Ox 97.5 F L 124 H 32 H 146/79 94 L 06/29/18 10:00 06/29/18 10:00 06/29/18 10:00 06/29/18 10:00 06/29/18 09:00 Active Medications Albuterol/Ipratropium (Duoneb -) 1 amp NEB Q6H PRN PRN Reason: WHEEZING Last Admin: 06/27/18 20:55 Dose: 1 amp Atorvastatin Calcium (Lipitor -) 10 mg PO HS [facility] Last Admin: 06/28/18 22:07 Dose: 10 mg Docusate Sodium (Colace -) 200 mg PO [facility] Last Admin: 06/28/18 21:58 Dose: Not Given IV Flush (Triple Lumen Flush) 4 ml IVPUSH PRN PRN PRN Reason: Protocol Potassium Chloride/Sodium Chloride (Ns+20 Meq Kcl -) 20 meq in 1,000 mls @ 50 mls/hr IV ASDIR [facility] Last Admin: 06/29/18 12:34 Dose: 50 mls/hr Insulin Aspart (Novolog Vial Sliding Scale -) 1 vial SQ ACHS [facility]; Protocol Last Admin: 06/29/18 11:27 Dose: Not Given Insulin Aspart (Novolog Mix 70/30 Vial) 7 units SQ [facility] Last Admin: 06/29/18 06:00 Dose: Not Given Mirtazapine (Remeron -) 15 mg PO HS [facility] Last Admin: 06/28/18 22:07 Dose: 15 mg Pantoprazole Sodium (Protonix -) 40 mg PO DAILY [facility] Last Admin: 06/29/18 09:39 Dose: 40 mg Polyethylene Glycol (Miralax (For Daily Use) -) 17 gm PO DAILY [facility] Last Admin: 06/29/18 09:39 Dose: 17 gm Constitutional: Yes: Tachypneic Eyes: Yes: WNL HENT: Yes: WNL Neck: Yes: WNL Cardiovascular: Yes: Regular Rate and Rhythm, S1, S2 Respiratory: Yes: bilateral rhonchi Gastrointestinal: Yes: Normal Bowel Sounds, Soft Extremities: Yes: WNL Edema: No Labs: Laboratory Results - last 24 hr 06/28/18 06/28/18 06/29/18 16:55 22:06 04:52 POC Glucometer 144 191 149 06/29/18 11:20 POC Glucometer 202 Assessment/Plan - Problems (1) COPD (chronic obstructive pulmonary disease) Code(s): J44.9 - CHRONIC OBSTRUCTIVE PULMONARY DISEASE, UNSPECIFIED (2) Pleural effusion Code(s): J90 - PLEURAL EFFUSION, NOT ELSEWHERE CLASSIFIED EXUDATE BY ALBUMIN GRADIENT CRITERIA (3) Hilar mass Code(s): R91.8 - OTHER NONSPECIFIC ABNORMAL FINDING OF LUNG FIELD (4) Hyponatremia Code(s): E87.1 - HYPO-OSMOLALITY AND HYPONATREMIA (5) Liver metastasis Code(s): C78.7 - SECONDARY MALIG NEOPLASM OF LIVER AND INTRAHEPATIC BILE DUCT (6) Lung mass Code(s): R91.8 - OTHER NONSPECIFIC ABNORMAL FINDING OF LUNG FIELD (7) Poor appetite Code(s): R63.0 - ANOREXIA (8) Superior vena cava compression syndrome Code(s): I87.1 - COMPRESSION OF VEIN 9. R parietal cva 10. R PTX TRAPPED LUNG 11. METASTATIC CA Assessment/PLAN 100% NRBM Aspiration precautions Plan is for hospice care Dr Huntley Problem List - Problems (1) COPD (chronic obstructive pulmonary disease) Code(s): J44.9 - CHRONIC OBSTRUCTIVE PULMONARY DISEASE, UNSPECIFIED (2) Pleural effusion Code(s): J90 - PLEURAL EFFUSION, NOT ELSEWHERE CLASSIFIED (3) Hilar mass Code(s): R91.8 - OTHER NONSPECIFIC ABNORMAL FINDING OF LUNG FIELD (4) Hyponatremia Code(s): E87.1 - HYPO-OSMOLALITY AND HYPONATREMIA (5) Liver metastasis Code(s): C78.7 - SECONDARY MALIG NEOPLASM OF LIVER AND INTRAHEPATIC BILE DUCT (6) Lung mass Code(s): R91.8 - OTHER NONSPECIFIC ABNORMAL FINDING OF LUNG FIELD (7) Poor appetite Code(s): R63.0 - ANOREXIA (8) Superior vena cava compression syndrome Code(s): I87.1 - COMPRESSION OF VEIN
[2018-06-29] MEDS: DOCUSATE SODIUM 100 MG CAPSULE (FP) PO SCH (22:12)
[2018-06-29] MEDS: ATORVASTATIN CA 10 MG TABLET (FP) PO SCH (22:13)
[2018-06-29] MEDS: MIRTAZAPINE 15 MG TABLET (FP) PO SCH (22:14)
[2018-06-30] MEDS: INSULIN SLIDING SCALE (NOVOLOG) 1 VIAL SQ SCH ×4 (06:05→21:15)
[2018-06-30] MEDS ORDERED: INSULIN (NOVOLOG MIX 70/30) 100 UNITS/ML MDV SQ ONE (06:44)
[2018-06-30] MEDS ORDERED: INSULIN (NOVOLOG) ASPART 100 UNITS/ML 10ML VIAL ONE ×2 (06:44→11:58)
[2018-06-30] MEDS: INSULIN (NOVOLOG MIX 70/30) 100 UNITS/ML MDV SQ SCH (06:45)
[2018-06-30] MEDS: POLYETHYLENE GLYCOL 3350 119 GM BTL PO SCH (09:42)
[2018-06-30] MEDS: PANTOPRAZOLE 40 MG TABLET (FP) PO SCH (09:42)
--- NOTE | 2018-06-30 15:14 | PN ---
Progress Note, Physician Chief Complaint: Dyspneic and tachypneic at rest, easy fatigability, difficulty in swallowing. History of Present Illness: This 73 yr old w/m with hx of HTN and type 2 diabetes admitted via ER with acute generalized muscle weakness, anorexia, abnormal weight loss, right lung mass with distant metastases, acute hyponatremia, acute hypokalemia, acute neutrophillic leukocytosis, acute hemorrhagic stroke of the left parietal lobe, DVT and superior vena cava syndrome. - Current Medication List Current Medications: Active Medications Albuterol/Ipratropium (Duoneb -) 1 amp NEB Q6H PRN PRN Reason: WHEEZING Last Admin: 06/27/18 20:55 Dose: 1 amp Atorvastatin Calcium (Lipitor -) 10 mg PO HS [facility] Last Admin: 06/29/18 22:13 Dose: 10 mg Docusate Sodium (Colace -) 200 mg PO HS [facility] Last Admin: 06/29/18 22:12 Dose: Not Given IV Flush (Triple Lumen Flush) 4 ml IVPUSH PRN PRN PRN Reason: Protocol Potassium Chloride/Sodium Chloride (Ns+20 Meq Kcl -) 20 meq in 1,000 mls @ 50 mls/hr IV ASDIR [facility] Last Admin: 06/29/18 12:34 Dose: 50 mls/hr Insulin Aspart (Novolog Vial Sliding Scale -) 1 vial SQ ACHS [facility]; Protocol Last Admin: 06/30/18 12:04 Dose: Not Given Insulin Aspart (Novolog Mix 70/30 Vial) 7 units SQ [facility] Last Admin: 06/30/18 06:45 Dose: 7 units Mirtazapine (Remeron -) 15 mg PO HS [facility] Last Admin: 06/29/18 22:14 Dose: 15 mg Pantoprazole Sodium (Protonix -) 40 mg PO DAILY [facility] Last Admin: 06/30/18 09:42 Dose: 40 mg Polyethylene Glycol (Miralax (For Daily Use) -) 17 gm PO DAILY [facility] Last Admin: 06/30/18 09:42 Dose: 17 gm - Objective Vital Signs: Vital Signs Temperature 96.3 F L 06/30/18 13:00 Pulse Rate 114 H 06/30/18 13:00 Respiratory Rate 20 06/30/18 13:00 Blood Pressure 125/67 06/30/18 13:00 O2 Sat by Pulse Oximetry (%) 100 06/30/18 09:55 Constitutional: Yes: Well Nourished, Moderate Distress Eyes: Yes: Conjunctiva Clear, EOM Intact HENT: Yes: Atraumatic, Normocephalic Neck: Yes: Trachea Midline, Other (edema of the neck) Cardiovascular: Yes: Regular Rate and Rhythm Respiratory: Yes: Accessory Muscle Use, Cough, Diminished (right lung), Dullness (right lung), On Venti-Mask, Rhonchi, SOB, Tachypnea, Wheezes Gastrointestinal: Yes: Normal Bowel Sounds, Soft ...Rectal Exam: Yes: Deferred Genitourinary: Yes: Incontinence Breast(s): Yes: WNL Musculoskeletal: Yes: Muscle Weakness (generalized) Extremities: Yes: Cool Edema: Yes Edema: LUE: 3+, RUE: 3+ Peripheral Pulses WNL: Yes Integumentary: Yes: Pressure Ulcer (stage II of the right buttock) ...Motor Strength: LUE (diminished), LLE (diminished), RUE (diminished), RLE ( diminished) Psychiatric: Yes: Alert, Oriented Labs: CBC, BMP 06/28/18 06:00 06/28/18 06:00 INR, PTT INR 1.12 (0.83-1.09) H 06/07/18 06:41 Problem List - Problems (1) Lung mass Assessment/Plan: Palliative care Code(s): R91.8 - OTHER NONSPECIFIC ABNORMAL FINDING OF LUNG FIELD (2) Diabetes mellitus Assessment/Plan: Novolog 70/30 and novolog sliding scale coverage Code(s): E11.9 - TYPE 2 DIABETES MELLITUS WITHOUT COMPLICATIONS (3) Deep venous thrombosis of axillary vein Assessment/Plan: Palliative care Code(s): I82.A19 - ACUTE EMBOLISM AND THROMBOSIS OF UNSPECIFIED AXILLARY VEIN (4) Hypokalemia Code(s): E87.6 - HYPOKALEMIA (5) Acute hemorrhagic infarction of brain Assessment/Plan: Palliative care Code(s): I63.8 - OTHER CEREBRAL INFARCTION Assessment/Plan Plan: 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 IV fluids with IV KCL, on 50% oxygen via NRB venti-mask, palliative care, awaiting transfer to [facility], discussed clinical condition with daughter Vera.
[2018-06-30] MEDS: SODIUM CHLORIDE 0.9%/KCL 20 MEQ/1,000 ML INFUS.BAG IV SCH (15:34)
[2018-06-30] MEDS: MIRTAZAPINE 15 MG TABLET (FP) PO SCH (21:15)
[2018-06-30] MEDS: ATORVASTATIN CA 10 MG TABLET (FP) PO SCH (21:17)
[2018-06-30] MEDS: DOCUSATE SODIUM 100 MG CAPSULE (FP) PO SCH (21:17)
--- NOTE | 2018-06-30 22:24 | PROC ---
Intubation - Intubation Reason for Intubation: Respiratory Insufficiency, Airway Protection Time of Intubation: 21:50 Intubation Method: orotracheal Blade used: Mac Tube Size (cm): 8.0 Tube position @ lip (cm): 23 Tube position confirmed by: CO2 detector Post Intubation Xray: No (see note below) Remarks: Code 99 Called to link, arrived at 2123 with ACLS in progress. ROSC but pt. still with respiratory insufficiency, not tolerating or responding to BiPAP therapy as reported by medical team. Endotracheal intubation requested. Serum K (4.1) and creatinine (0.3) reviewed, noted that pt. is not NPO. Pt. was responsive to stimulus at this point therefore Etomidate 12mg followed by Succinylcholine 120mg given IV push by RN as BMV with Ambu 100%O2 in progress. Unable to adequately open jaw and very poor view, grade 4 on DL with MAC 3. BMV resumed. CPR again resumed due to loss of pulse. BMV continued with intermittent suctioning of oropharynx of gastric contents as well as bloody secretions. Glidescope obtained; still very poor view with Glidescope due to copious secretions as well as distorted anatomy. Unable to clearly visualize VC. DL again with MAC 3, partial view of arytenoids but very unclear; bougie passed. Tactile sensation consistent with possible tracheal rings felt. ETT 8.0 passed over bougie and carboximeter attached. Positive color change noted. CPR still in progress. Copious secretions from ETT suctioned and BMV resumed. Attempted to confirm tube placement with Glidescope but unable to clearly visualize anatomy. Link subsequently called by Code team.
--- NOTE | 2018-06-30 23:05 | RAPID ---
Physical Examination Vital Signs: Vital Signs Temperature 98.4 F 06/30/18 17:31 Pulse Rate 114 H 06/30/18 13:00 Respiratory Rate 20 06/30/18 17:31 Blood Pressure 115/59 06/30/18 17:31 O2 Sat by Pulse Oximetry (%) 100 06/30/18 09:55 Constitutional: Yes: Severe Distress Cardiovascular: Yes: Tachycardia Respiratory: Yes: On BiPap, SOB Edema: LUE: 4+, RUE: 4+ Labs: CBC, BMP 06/28/18 06:00 06/28/18 06:00 Rapid Response - Rapid Response Assessment: At approx. 9:24, rapid response was called for hypoxia. On arrival, the patient was agonally breathing and nursing staff had lost a pulse. At 9:26, code 99 was called. ACLS protocol was followed. ROSC was achieved. Shortly after this, the patient again became pulseless. ACLS protocol was re-initiated and followed. Despite exhaustive efforts, the patient remained pulseless. The patient was pronounced at 9:56 pm. Please refer to code sheet for full code details. Family was notified at bedside. Patient's PCP was notified.
[2018-06-30 23:53] VITALS: BP 160/88; PULSE 123; TEMP 97.3
--- NOTE | 2018-07-01 08:27 | DS ---
Physical Examination Vital Signs: Vital Signs Temperature 97.3 F L 06/30/18 21:00 Pulse Rate 123 H 06/30/18 21:00 Respiratory Rate 28 H 06/30/18 21:00 Blood Pressure 160/88 06/30/18 21:00 O2 Sat by Pulse Oximetry (%) 88 L 06/30/18 21:00 Labs: CBC, BMP 06/28/18 06:00 06/28/18 06:00 Discharge Summary Reason For Visit: Non-small cell poorly differentiated carcinoma Cardiorespiratory arrest. Patient approximately 10pm. Total time spent over 30 minutes. Condition: - Instructions Referrals: Mau Mclain MD [Primary Care Provider] - Disposition: - Home Medications Comprehensive Discharge Medication List: Ambulatory Orders Albuterol 2.5/Ipratropium 0.5 [Duoneb -] 1 amp NEB Q6H PRN amp 06/29/18 Atorvastatin Ca [Lipitor] 10 mg PO HS tablet 06/29/18 Docusate Sodium [Colace -] 200 mg PO HS capsule 06/29/18 Insulin (Novolog 70/30) [Novolog Mix 70/30 Vial -] 7 units SQ ACBK units Insulin Sliding Scale [Novolog Vial Sliding Scale -] 1 vial SQ ACHS units 06/29 Mirtazapine [Remeron -] 15 mg PO HS tablet 06/29/18 Pantoprazole Sodium [Protonix -] 40 mg PO DAILY tablet.ec 06/29/18 Polyethylene Glycol 3350 [Miralax 119 gm Btl -] 17 gm PO DAILY bottle 06/29/18
--- NOTE | 2018-07-01 09:58 | EKG ---
Test Reason : Blood Pressure : / mmHG Vent. Rate : 123 BPM Atrial Rate : 123 BPM P-R Int : 126 ms QRS Dur : 072 ms QT Int : 232 ms P-R-T Axes : 222 011 210 degrees QTc Int : 332 ms LIKELY ATRIAL FLUTTER WITH RAPID VENTRICULAR RESPONSE LOW VOLTAGE QRS ABNORMAL ECG WHEN COMPARED WITH ECG OF 19-JUN-2018 13:44, ATRIAL FLUTTER APPEARS TO HAVE REPLACED SINUS TACHYCARDIA CLINICAL CORRELATION IS RECOMMENDED Confirmed by LASHAE MCKEON, DOYLE ([id number]) on 07/01/2018 9:58:26 AM Referred By: An Leone Confirmed By:DOYLE BHARDWAJ MD
== END 2018-06-30 21:56 | disposition expired | DRG 180 ==
LOC: JER 09:55 → JERBED 13:50 → J7W 15:15 → J4S 06-11 11:26
PROVIDERS: ADMIT Internal Medicine; ATTEND Internal Medicine
PROC: 0W993ZX Drainage of Right Pleural Cavity, Percutaneous Approach, Diagnostic (ICD-10-PCS; 2018-06-07)
PROC: 0W9930Z Drainage of Right Pleural Cavity with Drainage Device, Percutaneous Approach (ICD-10-PCS; 2018-06-13)
PROC: 0BBC3ZX Excision of Right Upper Lung Lobe, Percutaneous Approach, Diagnostic (ICD-10-PCS; principal; 2018-06-14)
PROC: 0FB13ZX Excision of Right Lobe Liver, Percutaneous Approach, Diagnostic (ICD-10-PCS; 2018-06-19)
PROC: 5A12012 Performance of Cardiac Output, Single, Manual (ICD-10-PCS; 2018-06-30)
DX: C34.91 Malignant neoplasm of unspecified part of right bronchus or lung (principal); G93.6 Cerebral edema; I63.9 Cerebral infarction, unspecified; I61.9 Nontraumatic intracerebral hemorrhage, unspecified; J96.00 Acute respiratory failure, unspecified whether with hypoxia or hypercapnia; I87.1 Compression of vein; C78.7 Secondary malignant neoplasm of liver and intrahepatic bile duct; E87.1 Hypo-osmolality and hyponatremia; R64 Cachexia; B37.0 Candidal stomatitis; I82.A19 Acute embolism and thrombosis of unspecified axillary vein; J95.811 Postprocedural pneumothorax; J90 Pleural effusion, not elsewhere classified; N39.0 Urinary tract infection, site not specified; R91.8 Other nonspecific abnormal finding of lung field; R62.7 Adult failure to thrive; R44.1 Visual hallucinations; E87.6 Hypokalemia; D72.829 Elevated white blood cell count, unspecified; N40.0 Benign prostatic hyperplasia without lower urinary tract symptoms; E11.9 Type 2 diabetes mellitus without complications; J44.9 Chronic obstructive pulmonary disease, unspecified; E83.42 Hypomagnesemia; B96.20 Unspecified Escherichia coli [E. coli] as the cause of diseases classified elsewhere
CPT/HCPCS: 32405; 32557; 36415; 47000; 70450-TC; 70553-TC; 71045-TC-FY; 71250-TC; 71260-TC; 76098-TC-FY; 76705-TC; 76856-TC; 76942; 76998-TC; 77012-TC; 80048; 80053; 80061; 81003; 81015; 82042; 82150; 82436; 82803; 82945; 82962; 83605; 83615; 83721; 83735; 83930; 83935; 84133; 84157; 84300; 84443; 84478; 84484; 85025; 85610; 85730; 87040; 87070; 87075; 87086; 87102; 87116; 87186; 87205; 87206; 87210; 87899; 88108; 88305-TC; 88341-TC; 89051; 93005; 93010; 93971; 94640; 97116-GP; 97161-GP; 99282-25; C1729; C1769; E0186; J7030; J7620